=== PATIENT | female | born 1995 | race Caucasian/White ===

== ENCOUNTER → 2021-01-29 16:33 | Outpatient (CLI) | payer BC, SELFPAY ==
[2021-01-29 17:24] LABS: Absolute Lymphocyte Count 2.39 X10^3/uL (0.83-4.51); Absolute Neutrophil Count 5.1 X10^3/uL (2.0-7.7); Basophil# 0.06 X10^3/uL; Basophil% 0.7 % (0-1); Eosinophil# 0.16 X10^3/uL; Eosinophils% 1.9 % (0-5); Hemoglobin 13.5 g/dL (12.0-15.0); Lymphocyte # 2.39 X10^3/ul (0.83-4.51); Mean Corp Hgb Conc 35.5 g/dL (32-36); Mean Corpuscular Volume 84.4 fL (81-99); Mean Platelet Vol. 10.5 fl (6.2-12.0); Monocyte# 0.53 X10^3/uL; Monocyte% 6.4 % (0-10); NRBC Flagged by Analyzer 0 % (0-5); Neutrophil # 5.09 X10^3/uL (2.7-7.7); Neutrophil % 61.8 % (47-70); Platelet Count 253 K/mm3 (150-450); RBC Distribution Width CV 11.9 % (11.6-14.6); RBC Distribution Width SD 36.2 fl (35.1-43.9); White Blood Count 8.3 K/mm3 (4.4-11.0)
[2021-01-30 10:19] LABS: HIV - WCH Non-Reactive (Nonreactive); Hepatitis B Surface Antigen Non-Reactive (Nonreactive); Hepatitis C Antibody Non-Reactive (Nonreactive); Rubella IgG Reactive (Nonreactive); Syphilis Antibodies Non-reactive
[2021-02-02 22:06] LABS: Chlamydia By Nucleic Acid AMP Negative (Negative)
[2021-02-03 11:53] LABS: Gonococcus By Nucleic Acid AMP Negative (Negative)
[2021-02-04 17:16] LABS: HPV Reflexed? NOT INDICATED
== END ==
PROVIDERS: Visit Provider Obstetrics & Gynecology
DX: Z34.81 Encounter for supervision of other normal pregnancy, first trimester (principal)
CPT/HCPCS: 36415; 85025; 86703; 86762; 86780; 86803; 87086; 87088; 87340; 87491; 87591; 88175; G0145

== ENCOUNTER 2021-06-09 15:46 | Outpatient (CLI) | payer BC, SELFPAY ==
[2021-06-09 17:37] LABS: Glucose Challenge Gest 1H 50g 165 mg/dL (70-140)
[2021-06-09 17:40] LABS: Hematocrit 33.2 % (37-47); Hemoglobin 11.5 g/dL (12.0-15.0); Mean Corp Hgb Conc 34.6 g/dL (32-36); Mean Corpuscular Hgb 30.2 pg (27.0-32.0); Mean Corpuscular Volume 87.1 fL (81-99); Mean Platelet Vol. 11.2 fl (6.2-12.0); Platelet Count 199 K/mm3 (150-450); RBC Distribution Width CV 12.1 % (11.6-14.6); RBC Distribution Width SD 38.6 fl (35.1-43.9); Red Blood Count 3.81 M/mm3 (4.2-5.4); White Blood Count 10.8 K/mm3 (4.4-11.0)
== END 2021-06-09 23:59 | disposition home or self-care (01) ==
LOC: WOBLAB 15:51
PROVIDERS: Visit Provider Obstetrics & Gynecology
DX: Z34.82 Encounter for supervision of other normal pregnancy, second trimester (principal)
CPT/HCPCS: 36415; 82950; 85027

== ENCOUNTER 2021-06-15 09:08 | Outpatient (CLI) | payer BC, SELFPAY ==
[2021-06-15 10:28] LABS: Glucose GTT-Gestation. Fasting 81 mg/dL (<105)
[2021-06-15 13:05] LABS: Glucose GTT-Gestational 2 Hr 151 mg/dL (<165)
[2021-06-15 13:06] LABS: Glucose GTT-Gestational 1 Hr 165 mg/dL (<190)
[2021-06-15 13:06] LABS: Glucose GTT-Gestational 3 Hr 134 L (<145)
== END 2021-06-15 23:59 | disposition home or self-care (01) ==
PROVIDERS: Visit Provider Obstetrics & Gynecology
DX: Z34.82 Encounter for supervision of other normal pregnancy, second trimester (principal)
CPT/HCPCS: 36415; 82951; 82952

== ENCOUNTER → 2021-08-11 | Outpatient (CLI) | payer BC, SELFPAY | END | disposition home or self-care (01) | LOC: LABSPEC 17:17 | PROVIDERS: Visit Provider Obstetrics & Gynecology | DX: Z34.83 Encounter for supervision of other normal pregnancy, third trimester (principal) | CPT/HCPCS: 87086; 87088 ==

== ENCOUNTER → 2021-08-25 | Outpatient (CLI) | payer BC, SELFPAY | END | disposition home or self-care (01) | LOC: LABSPEC 16:13 | PROVIDERS: Visit Provider Obstetrics & Gynecology | DX: Z36.85 Encounter for antenatal screening for Streptococcus B (principal) | CPT/HCPCS: 87077; 87081; 87186 ==

== ENCOUNTER 2021-08-27 20:35 | Outpatient (CLI) | payer BC, SELFPAY ==
[2021-08-27] VITALS (11 sets, daily range): BP systolic 120–130; BP diastolic 80–85; PULSE 98–130; TEMP 36.2–36.9; O2SAT 97–99; BMI 34.6
--- NOTE | 2021-08-27 17:53 | OB.TRI.NOTE ---
HPI - General HPI Narrative JOEL ELIAS, is a 25 F who presents with decreased movement PFSH PFSH Home Medications vit-iron fum-folic ac [Prena-Tab] 1 tab PO DAILY 08/27/21 [History Last Taken 08/27/21 10:00] Allergy/AdvReac Type Severity Reaction Status Date / Time amoxicillin Allergy Other Verified 08/27/21 14:44 Penicillins [PCN] Allergy Other Verified 08/27/21 14:44 NST FHR Rate Baby A Baseline: 140 Variability:: Moderate Accelerations:: 15 x 15 Decelerations:: None NST Reactive:: Yes Uterine Activity:: Few contractions Assessment & Plan (1) : PLAN: Patient arrived with decreased movement, reactive NST and now feeling movement. All reassuring. Patient with some cramping cervical exam unchanged from office visit, reassuring. Encourage p.o. hydration. Okay to discharge home and follow-up at scheduled appointments
--- NOTE | 2021-08-27 22:46 | OB.TRI.NOTE ---
HPI - General HPI Narrative JOEL ELIAS, is a 25 F who presents with cramping PFSH PFSH Home Medications vit-iron fum-folic ac [Prena-Tab] 1 tab PO DAILY 08/27/21 [History Last Taken 08/27/21 10:00] Allergy/AdvReac Type Severity Reaction Status Date / Time amoxicillin Allergy Other Verified 08/27/21 20:58 Penicillins [PCN] Allergy Other Verified 08/27/21 20:58 NST FHR Rate Baby A Baseline: 140 Variability:: Moderate Accelerations:: 15 x 15 Decelerations:: None NST Reactive:: Yes Uterine Activity:: Every 5 to 8 minutes Assessment & Plan (1) : PLAN: Patient arrived with contractions. Cervical exam unchanged from office exam. Repeat cervical exam unchanged. All reassuring. No signs of labor. Okay to discharge home and follow-up at scheduled appointments
== END 2021-08-27 23:27 | disposition home or self-care (01) ==
LOC: WP 20:44 → WPOUT 20:44
PROVIDERS: Visit Provider Obstetrics & Gynecology
DX: O36.8190 Decreased fetal movements, unspecified trimester, not applicable or unspecified (principal); Z3A.00 Weeks of gestation of pregnancy not specified
CPT/HCPCS: 59025; 59050; 99218; G0378

== ENCOUNTER 2021-09-01 21:30 | Outpatient (CLI) | payer BC, SELFPAY ==
[2021-09-01 21:47] VITALS: BP 119/87; PULSE 80; TEMP 36.7; O2SAT 99
[2021-09-01 21:58] VITALS: BMI 34.4
--- NOTE | 2021-09-01 22:15 | US_ITS ---
EXAM: US ABDOMEN LIMITED, RIGHT UPPER QUADRANT CLINICAL INDICATION: RUQ tenderness at 37 weeks gestation -- eval gallbladder, liver disease, TECHNIQUE: Real-time ultrasound of the right upper quadrant with image documentation. This report was created using DXY report generation technology. COMPARISON: None. FINDINGS: LIVER: Liver is normal in size and echogenicity measuring 15 cm. No intrahepatic biliary ductal dilation. GALLBLADDER: Moderately distended gallbladder. Sludge and shadowing stones in the gallbladder. Land Surve[employer] Survey Worker reports a positive sonographic Coleman''s sign. No gallbladder wall thickening is demonstrated. No pericholecystic fluid. COMMON BILE DUCT: Unremarkable as visualized. The proximal common bile duct is within normal limits for the patient''s age. PANCREAS: Limited due to bowel gas. No visualized abnormality. RIGHT KIDNEY: Right kidney is normal in size and echogenicity measuring 11.5 x 4 x 4.6 cm. Renal cortical thickness is normal. No mass, stone, or hydronephrosis. Limited due to bowel gas. US/Gallbladder IMPRESSION: Cholelithiasis with positive sonographic Coleman''s sign, suspicious for acute cholecystitis. Electronically Signed: Kalina Doran MD at 23:39 EDT Reading Location ID and State: [id number] / Tel , Service support ,
--- NOTE | 2021-09-01 22:18 | OB.TRI.NOTE ---
HPI - General HPI Narrative JOEL ELIAS, is a 25 F who presents at 37 3/7 weeks gestation with c/o right upper abdominal pain and contractions. Abdominal pain started suddenly at 6pm. She took a Tylenol 975mg at 6:45pm with no improvement of pain. Pain radiates through belly to back and was worsened with the car ride. She reports similar episode of pain that brought her to the hospital last week. The pain resolved an hour after taking Tylenol. Her contractions are approximately q2 minutes but she reports this is mild compared to her abdominal pain. + FM, no leaking of fluid or vaginal bleeding. PFSH [facility] Medical History (Updated 09/01/21 @ 22:[address] Susu Ortiz MD) Patient denies medical problems Home Medications vit-iron fum-folic ac [Prena-Tab] 1 tab PO DAILY 08/27/21 [History Last Taken 09/01/21] Allergy/AdvReac Type Severity Reaction Status Date / Time amoxicillin Allergy Other Verified 09/01/21 22:01 Penicillins [PCN] Allergy Other Verified 09/01/21 22:01 Surgical History (Updated 09/01/21 @ 22:[address] Susu Ortiz MD) No history of previous surgery Social History (Updated 09/01/21 @ 22:[address] Susu Ortiz MD) Smoking Status: Never smoker alcohol intake: never substance use type: does not use History 1 Elective abortions Hx Para Spontaneous abortions Hx # Term Pregnancies Ectopic pregnancies Hx # Pregnancies Multiple births # of living children ROS Constitutional Constitutional: Denies chills, fever(s) or headache(s) Eyes Eyes: Denies change in vision Gastrointestinal Gastrointestinal: Reports nausea and vomiting Physical Exam Const alert, oriented x3 and no apparent distress General Appearance: cooperative and comfortable HEENT normocephalic Resp Auscultation: clear to auscultation bilaterally Cardio regular rate, regular rhythm, S1 normal heart sound and S2 normal heart sound GI soft to palpation GI Narrative: +RUQ tenderness Inspection: gravid Narrative: no fundal tenderness, no suprapubic tenderness SVE 04/19/-3 per RN cervix check Bladder / Kidney Exam: no CVA tenderness and CVA tenderness Extremity no calf tenderness Extremity Narrative: +1 b/l LE edema Neuro moves all extremities and deep tendon reflexes 2+ bilaterally Neuro Narrative: no clonus Sensorium / Orientation: awake, alert, oriented to person, oriented to place and oriented to time NST FHR Rate Baby A Baseline: 130 Variability:: Moderate Accelerations:: 15 x 15 Decelerations:: None NST Reactive:: Yes FHR Category:: Category I Uterine Activity:: 3-07/28 Assessment & Plan (1) Right upper quadrant abdominal tenderness: PLAN: Dfdx hepatobiliary disease, appendicitis, less likely kidney stones CBC with diff, CMP U/A NPO Gallbladder US ordered, will consider CT pending lab findings. (2) 37 weeks gestation of :
[2021-09-01 22:46] LABS: Absolute Lymphocyte Count 1.62 X10^3/uL (0.83-4.51); Absolute Neutrophil Count 9.2 X10^3/uL (2.0-7.7); Basophil# 0.04 X10^3/uL; Basophil% 0.3 % (0-1); Eosinophil# 0.03 X10^3/uL; Eosinophils% 0.3 % (0-5); Hematocrit 34.5 % (37-47); Hemoglobin 11.1 g/dL (12.0-15.0); Lymphocyte # 1.62 X10^3/ul (0.83-4.51); Lymphocyte % 13.6 % (19-41); Mean Corp Hgb Conc 32.2 g/dL (32-36); Mean Corpuscular Hgb 25.9 pg (27.0-32.0); Mean Corpuscular Volume 80.6 fL (81-99); Mean Platelet Vol. 12.6 fl (6.2-12.0); Monocyte# 1.04 X10^3/uL; Monocyte% 8.7 % (0-10); NRBC Flagged by Analyzer 0 % (0-5); Neutrophil # 9.17 X10^3/uL (2.7-7.7); Neutrophil % 76.7 % (47-70); Platelet Count 176 K/mm3 (150-450); RBC Distribution Width CV 13.9 % (11.6-14.6); RBC Distribution Width SD 39.9 fl (35.1-43.9); Red Blood Count 4.28 M/mm3 (4.2-5.4)
[2021-09-01 22:59] LABS: Color, Urine Yellow (Yellow); Glucose, Dipstick Normal (Normal); Ketone-Dipstick 50 mg/dl (Negative); Leukocyte Esterase-Dipstick 500 /ul (Negative); Nitrite-Dipstick Negative (Negative); Occult Blood-Urine 10 /ul (Negative); Protein-Dipstick 100 mg/dl (Negative); Specific Gravity, Urine 1.025 (1.002-1.030); Urine Clarity Sl. Cloudy (Clear); Urine Urobilinogen 4 mg/dl (Normal)
[2021-09-01 23:00] LABS: Urine Bilirubin Dipstick 1 mg/dL (Negative)
[2021-09-01 23:06] LABS: ALB/GLOB Ratio 0.7 RATIO (0.9-2.4); AST(SGOT) 94 U/L (15-37); Alanine Aminotransfer ALT/SGPT 96 U/L (13-56); Albumin, Serum 3.2 g/dL (3.2-5.0); Alkaline Phosphatase 202 U/L (45-117); Amylase 68 U/L (25-115); Anion Gap 9 (5-15); BUN 12 mg/dL (7-18); BUN/Creat Ratio 14.7 RATIO (10-20); Calcium,Total 9.5 mg/dL (8.5-10.1); Chloride 106 mmol/L (98-107); Creatinine, Serum 0.82 mg/dL (0.55-1.02); EST Glomerular Filtration Rate 92 mL/min (>60); Est Glom Filt Rate - Afr Amer 111 mL/min (>60); Estimated Creatinine Clearance 130.21 ml/min; Globulin 4.5 g/dL (2.2-4.2); Glucose 92 mg/dL (74-106); Lipase 145 U/L (73-393); Potassium 4.1 mmol/L (3.5-5.1); Protein, Total 7.7 g/dL (6.4-8.2); Sodium Level 138 mmol/L (136-145)
[2021-09-01 23:18] LABS: Bacteria 3+ /hpf (None Seen); Mucous, Urine 3+ /hpf (<or=2+); Red Blood Cells-Urine 5-10 SEEN /hpf (0-5); Squamous Epithelial Cells - UA 10-25 SEEN /hpf (5-10); White Blood Cells 25-50 SEEN /hpf (0-5)
[2021-09-02] MEDS: Lactated Ringers 500 ML 999 ML IV (00:07)
--- NOTE | 2021-09-02 00:37 | PCM.PN.BLA ---
Progress Note Pt reports upper abdominal pain improved now 07/28 from 10/28 and has more pelvic pain due to her contractions and reports wetness. She is uncertain if her water broke. AVSS, +RUQ tenderness not as exquisite as prior. SVE 04/19/-3, moderate and posterior. FHR 140, moderate variability, + accelerations, no decelerations. Labs reviewed with elevated AST/ALT and US with biliary stones, sludge. Surgery consultation obtained. Case discussed further with Dr. Ward. Given cannot rule out cholecystitis will start Keflex/Flagyl and observe overnight. Pain management prn. Cat I FHR. ROM plus.
[2021-09-02] MEDS: Lactated Ringers 1,000 ML 125 ML IV ×2 (00:41→04:45)
[2021-09-02 00:53] VITALS: BP 113/77; PULSE 101; PULSE 92; TEMP 36.7; O2SAT 97
[2021-09-02] MEDS: Famotidine 200 MG/20 ML MDV 20 MG in 0.9% Normal Saline (Pres. free 8 ML 300 MG IV (01:03)
[2021-09-02] MEDS: 0.9% Saline Lock 10 ML Syringe IV (01:03)
[2021-09-02] MEDS: Cephalexin 500 MG Capsule PO ×2 (01:04→06:35)
[2021-09-02] MEDS: metroNIDAZOLE 500 MG/100 ML BAG 100 MG IV ×2 (01:12→06:35)
[2021-09-02 01:26] LABS: ROM Internal Control Test YES-OK TO RESULT pt. (Internal QC); ROM Patient Test Negative (Negative)
[2021-09-02 06:37] VITALS: BP 127/75; PULSE 67; TEMP 36.6
--- NOTE | 2021-09-02 07:20 | CON.PCM.SX_ITS ---
Assessment & Plan Assessment/Plan (1) 37 weeks gestation of : (2) Right upper quadrant abdominal tenderness: (3) Cholelithiasis: PLAN: Plan We will plan to recheck CBC and CMP. If increased would plan for an MRI to take a better look at the gallbladder. Did review ultrasound gallbladder?stones are mostly in the fundus of the gallbladder and normal gallbladder wall no pericholecystic fluid and with no elevation of bilirubin unsure that this elevated liver function is due to the gallbladder. Patient states her pain is currently improved. Patient is currently 37 weeks not plan for delgado rgical intervention at this time, if needed would plan for cholecystostomy tube. Patient had no further questions this time. Addendum: CBC shows a drop in hemoglobin as well as drop in platelets. Did discuss with Dr. Susu Ortiz if hellp syndrome could be a consideration for the etiology. Currently liver functions pending Niki Ward M.D. Pager: [phone] [facility] [address] [place] [address], [facility], [address] [place] [address] Office: [phone] HPI Consult Data Date of Consult: 09/02/21 HPI Narrative HPI Narrative: JOEL ELIAS, is a 25 F who presents to OB triage due to upper abdominal pain. Patient states that started about 6 PM patient did eat at 5 PM. Patient states she has had previous episodes but those did improve. Ultrasound was done which showed gallstones normal wall no pericholecystic fluid?tech called positive Coleman sign. Patient is currently 37 weeks gestation, white blood cell count 12, elevated AST ALT and alk phos normal total bilirubin. Consulted by BRYOLOGIST due to possible cholecystitis. Patient was started prophylactically on Keflex and Flagyl. Currently this morning patient states her pain is improved previously about an 8 she came in currently 4?5/10 (prior to getting pain meds). Patient did have some nausea and vomiting with this. [facility] Medical History (Updated 09/02/21 @ 07:[address] Niki Ward MD) Patient denies medical problems Home Medications vitamins-iron fumarate 65 mg iron-folic acid 1 mg tablet 1 tab PO DAILY prengnacy 08/27/21 [History Last Taken 09/01/21] Allergy/AdvReac Type Severity Reaction Status Date / Time amoxicillin Allergy Other Verified 09/01/21 22:01 Penicillins [PCN] Allergy Other Verified 09/01/21 22:01 Surgical History (Updated 09/01/21 @ 22:[address] Susu Ortiz MD) No history of previous surgery Social History (Updated 09/01/21 @ 22:[address] Susu Ortiz MD) Smoking Status: Never smoker alcohol intake: never substance use type: does not use ROS Constitutional Constitutional: Denies anorexia or chills ENT HEENT: Denies dizziness Cardiovascular Cardiovascular: Denies chest pain Respiratory/Chest Respiratory/Chest: Denies shortness of breath at rest Gastrointestinal Gastrointestinal: Reports abdominal pain and nausea; Denies diarrhea, heartburn, hematemesis or melena Genitourinary Genitourinary: Denies burning urination Musculoskeletal Musculoskeletal: Denies joint pain Integumentary Integumentary: Denies rash Neurologic Neurologic: Denies abnormal gait or focal weakness Endocrine Endocrinology: Denies palpitations Hematologic/Lymphatic Hematologic/Lymphatic: Denies easy bleeding or easy bruising Physical Exam Const alert, oriented x3 and no apparent distress HEENT normocephalic and head/scalp atraumatic Resp normal respiratory effort Cardio regular rate GI non-distended Palpation: tender RUQ (mild, no PS) and other (Protuberant abdomen consistent with 37 weeks gestation); Negative for guarding Extremity no clubbing, cyanosis or edema Neuro CN's II-XII intact bilaterally Psych mental status grossly normal Lab / Micro Data Result Diagrams: 09/02/21 08:20 09/01/21 22:30 Labs: Laboratory Results - last 24 hr 09/01/21 22:25: Urine Color Yellow, Urine Clarity Sl. Cloudy, Urine pH 6.0, Ur Specific [place] 1.025, Urine Protein 100 H, Urine Glucose (UA) Normal, Urine Ketones 50 H, Urine Occult Blood 10 H, Urine Nitrite Negative, Urine Bilirubin 1 H, Urine Urobilinogen 4 H, Ur Leukocyte Esterase 500 H, Urine RBC 5-10 SEEN, Urine WBC 25-50 SEEN, Ur Squamous Epith Cells 10-25 SEEN, Urine Bacteria 3+, Urine Mucus 3+ 09/01/21 22:30: WBC 12.0 H, RBC 4.28, Hgb 11.1 L, Hct 34.5 L, MCV 80.6 L, MCH 25.9 L, MCHC 32.2, RDW Std Deviation 39.9, RDW Coeff of Leila 13.9, Plt Count 176, MPV 12.6 H, Immature Gran % (Auto) 0.400, Neut % (Auto) 76.7 H, Lymph % (Auto) 13.6 L, [place] % (Auto) 8.7, Eos % (Auto) 0.3, Baso % (Auto) 0.3, Absolute Neuts (auto) 9.2 H, Absolute Lymphs (auto) 1.62, Nucleated RBC % 0 09/01/21 22:30: Sodium 138, Potassium 4.1, Chloride 106, Carbon Dioxide 23.0, Anion Gap 9, BUN 12, Creatinine 0.82, Estim Creat Clear Calc 130.21, Est GFR (MDRD) Af Amer 111, Est GFR (MDRD) Non-Af 92, BUN/Creatinine Ratio 14.7, Glucose 92, Calcium 9.5, Total Bilirubin 1.00, AST 94 H, ALT 96 H, Alkaline Phosphatase 202 H, Total Protein 7.7, Albumin 3.2, Globulin 4.5 H, Albumin/Globulin Ratio 0.7 L, Amylase 68, Lipase 145 09/01/21 22:30: Blood Type O POSITIVE, Antibody Screen NEGATIVE 09/02/21 00:55: Vag Amniotic Fld Detect Negative Radiology Impression Gallbladder Ultrasound 09/01/21 22:15 IMPRESSION: Cholelithiasis with positive sonographic Coleman''s sign, suspicious for acute cholecystitis. Electronically Signed: Kalina Doran MD at 23:39 EDT Reading Location ID and State: [id number] / Tel , Service support , Charges/Coding Visit Charges Inpatient E&M: 76456 Init Hosp L3
--- NOTE | 2021-09-02 07:32 | OB.TRI.PN ---
Progress Notes Date of Service: 09/02/21 Progress Note: Denies fever, chills. Pain is mild to moderate and manageable this morning. No nausea or vomiting. + FM, no leaking of fluid or vaginal bleeding. AVSS, exam unchanged from prior. Laboratory Studies: Laboratory Tests 09/02/21 09/01/21 09/01/21 Range/Units 00:55 22:30 22:30 WBC (4.4-11.0) K/mm3 RBC (4.2-5.4) M/mm3 Hgb (12.0-15.0) g/dL Hct (37-47) % MCV (81-99) fL MCH (27.0-32.0) pg MCHC (32-36) g/dL RDW Std Deviation (35.1-43.9) fl RDW Coeff of Leila (11.6-14.6) % Plt Count (150-450) K/mm3 MPV (6.2-12.0) fl Immature Gran % (Auto) (0.0-0.9) % Neut % (Auto) (47-70) % Lymph % (Auto) (19-41) % [place] % (Auto) (0-10) % Eos % (Auto) (0-5) % Baso % (Auto) (0-1) % Absolute Neuts (auto) (2.0-7.7) X10^3/uL Absolute Lymphs (auto) (0.83-4.51) X10^3/uL Nucleated RBC % (0-5) % Sodium 138 (136-145) mmol/L Potassium 4.1 (3.5-5.1) mmol/L Chloride 106 (98-107) mmol/L Carbon Dioxide 23.0 (21.0-32.0) mmol/L Anion Gap 9 (5-15) BUN 12 (7-18) mg/dL Creatinine 0.82 (0.55-1.02) mg/dL Estim Creat Clear Calc 130.21 ml/min Est GFR (MDRD) Af Amer 111 (>60) mL/min Est GFR (MDRD) Non-Af 92 (>60) mL/min BUN/Creatinine Ratio 14.7 (10-20) RATIO Glucose 92 (74-106) mg/dL Calcium 9.5 (8.5-10.1) mg/dL Total Bilirubin 1.00 (0.20-1.00) mg/dL AST 94 H (15-37) U/L ALT 96 H (13-56) U/L Alkaline Phosphatase 202 H (45-117) U/L Total Protein 7.7 (6.4-8.2) g/dL Albumin 3.2 (3.2-5.0) g/dL Globulin 4.5 H (2.2-4.2) g/dL Albumin/Globulin Ratio 0.7 L (0.9-2.4) RATIO Amylase 68 (25-115) U/L Lipase 145 (73-393) U/L Urine Color (Yellow) Urine Clarity (Clear) Urine pH (5.0 - 8.0) Ur Specific [place] (1.002-1.030) Urine Protein (Negative) mg/dl Urine Glucose (UA) (Normal) mg/dl Urine Ketones (Negative) mg/dl Urine Occult Blood (Negative) /ul Urine Nitrite (Negative) Urine Bilirubin (Negative) mg/dL Urine Urobilinogen (Normal) mg/dl Ur Leukocyte Esterase (Negative) /ul Urine RBC (0-5) /hpf Urine WBC (0-5) /hpf Ur Squamous Epith Cells (5-10) /hpf Urine Bacteria (None Seen) /hpf Urine Mucus (<or=2+) /hpf Vag Amniotic Fld Detect Negative (Negative) Blood Type O POSITIVE Antibody Screen NEGATIVE 09/01/21 09/01/21 Range/Units 22:30 22:25 WBC 12.0 H (4.4-11.0) K/mm3 RBC 4.28 (4.2-5.4) M/mm3 Hgb 11.1 L (12.0-15.0) g/dL Hct 34.5 L (37-47) % MCV 80.6 L (81-99) fL MCH 25.9 L (27.0-32.0) pg MCHC 32.2 (32-36) g/dL RDW Std Deviation 39.9 (35.1-43.9) fl RDW Coeff of Leila 13.9 (11.6-14.6) % Plt Count 176 (150-450) K/mm3 MPV 12.6 H (6.2-12.0) fl Immature Gran % (Auto) 0.400 (0.0-0.9) % Neut % (Auto) 76.7 H (47-70) % Lymph % (Auto) 13.6 L (19-41) % [place] % (Auto) 8.7 (0-10) % Eos % (Auto) 0.3 (0-5) % Baso % (Auto) 0.3 (0-1) % Absolute Neuts (auto) 9.2 H (2.0-7.7) X10^3/uL Absolute Lymphs (auto) 1.62 (0.83-4.51) X10^3/uL Nucleated RBC % 0 (0-5) % Sodium (136-145) mmol/L Potassium (3.5-5.1) mmol/L Chloride (98-107) mmol/L Carbon Dioxide (21.0-32.0) mmol/L Anion Gap (5-15) BUN (7-18) mg/dL Creatinine (0.55-1.02) mg/dL Estim Creat Clear Calc ml/min Est GFR (MDRD) Af Amer (>60) mL/min Est GFR (MDRD) Non-Af (>60) mL/min BUN/Creatinine Ratio (10-20) RATIO Glucose (74-106) mg/dL Calcium (8.5-10.1) mg/dL Total Bilirubin (0.20-1.00) mg/dL AST (15-37) U/L ALT (13-56) U/L Alkaline Phosphatase (45-117) U/L Total Protein (6.4-8.2) g/dL Albumin (3.2-5.0) g/dL Globulin (2.2-4.2) g/dL Albumin/Globulin Ratio (0.9-2.4) RATIO Amylase (25-115) U/L Lipase (73-393) U/L Urine Color Yellow (Yellow) Urine Clarity Sl. Cloudy (Clear) Urine pH 6.0 (5.0 - 8.0) Ur Specific [place] 1.025 (1.002-1.030) Urine Protein 100 H (Negative) mg/dl Urine Glucose (UA) Normal (Normal) mg/dl Urine Ketones 50 H (Negative) mg/dl Urine Occult Blood 10 H (Negative) /ul Urine Nitrite Negative (Negative) Urine Bilirubin 1 H (Negative) mg/dL Urine Urobilinogen 4 H (Normal) mg/dl Ur Leukocyte Esterase 500 H (Negative) /ul Urine RBC 5-10 SEEN (0-5) /hpf Urine WBC 25-50 SEEN (0-5) /hpf Ur Squamous Epith Cells 10-25 SEEN (5-10) /hpf Urine Bacteria 3+ (None Seen) /hpf Urine Mucus 3+ (<or=2+) /hpf Vag Amniotic Fld Detect (Negative) Blood Type Antibody Screen Assessment & Plan (1) Cholelithiasis: PLAN: Surgery recs appreciated. Will follow up repeat LFTs to further determine management.
[2021-09-02 08:00] VITALS: BP 123/82; PULSE 90; TEMP 36.5; O2SAT 97
[2021-09-02 08:27] LABS: Absolute Lymphocyte Count 1.68 X10^3/uL (0.83-4.51); Absolute Neutrophil Count 5.5 X10^3/uL (2.0-7.7); Basophil# 0.04 X10^3/uL; Basophil% 0.5 % (0-1); Eosinophil# 0.05 X10^3/uL; Eosinophils% 0.6 % (0-5); Hemoglobin 9.6 g/dL (12.0-15.0); Lymphocyte # 1.68 X10^3/ul (0.83-4.51); Lymphocyte % 21.3 % (19-41); Mean Corpuscular Hgb 25.8 pg (27.0-32.0); Mean Corpuscular Volume 80.6 fL (81-99); Mean Platelet Vol. 12.4 fl (6.2-12.0); Monocyte# 0.62 X10^3/uL; Monocyte% 7.9 % (0-10); NRBC Flagged by Analyzer 0 % (0-5); Neutrophil # 5.47 X10^3/uL (2.7-7.7); Neutrophil % 69.3 % (47-70); Platelet Count 143 K/mm3 (150-450); RBC Distribution Width SD 40.1 fl (35.1-43.9); Red Blood Count 3.72 M/mm3 (4.2-5.4); White Blood Count 7.9 K/mm3 (4.4-11.0)
[2021-09-02 09:25] LABS: ALB/GLOB Ratio 0.7 RATIO (0.9-2.4); AST(SGOT) 69 U/L (15-37); Alanine Aminotransfer ALT/SGPT 92 U/L (13-56); Albumin, Serum 2.6 g/dL (3.2-5.0); Alkaline Phosphatase 178 U/L (45-117); Anion Gap 8 (5-15); BUN 11 mg/dL (7-18); BUN/Creat Ratio 16.7 RATIO (10-20); Calcium,Total 8.9 mg/dL (8.5-10.1); Chloride 109 mmol/L (98-107); Creatinine, Serum 0.66 mg/dL (0.55-1.02); EST Glomerular Filtration Rate 118 mL/min (>60); Est Glom Filt Rate - Afr Amer 142 mL/min (>60); Estimated Creatinine Clearance 161.77 ml/min; Globulin 3.8 g/dL (2.2-4.2); Glucose 85 mg/dL (74-106); Potassium 3.8 mmol/L (3.5-5.1); Protein, Total 6.4 g/dL (6.4-8.2); Sodium Level 139 mmol/L (136-145)
[2021-09-02 10:07] LABS: LDH 220 U/L (84-246); Uric Acid 5.1 mg/dL (2.6-6.0)
[2021-09-02 13:42] VITALS: BP 118/84; PULSE 85; TEMP 36.5
== END 2021-09-02 14:25 | disposition home or self-care (01) ==
LOC: WPOUT 21:40 → WP 21:40
PROVIDERS: Surgery; Referring Provider Obstetrics & Gynecology; Visit Provider Obstetrics & Gynecology
DX: O26.613 Liver and biliary tract disorders in pregnancy, third trimester (principal); K80.20 Calculus of gallbladder without cholecystitis without obstruction; Z3A.37 37 weeks gestation of pregnancy
CPT/HCPCS: 96365; 96366; 96361; 96375; 36415; 59025; 59050; 76705; 80053; 81001; 82150; 83615; 83690; 84112; 84550; 85025; 86850; 86900; 86901; 87086; 87088; 99218; J7120; A4216; G0378; J3490

== ENCOUNTER → 2021-09-04 | Outpatient (CLI) | payer BC, SELFPAY ==
[2021-09-04 16:56] LABS: Hematocrit 31.5 % (37-47); Hemoglobin 10.1 g/dL (12.0-15.0); Mean Corp Hgb Conc 32.1 g/dL (32-36); Mean Corpuscular Hgb 25.8 pg (27.0-32.0); Mean Corpuscular Volume 80.4 fL (81-99); Mean Platelet Vol. 12.6 fl (6.2-12.0); Platelet Count 173 K/mm3 (150-450); RBC Distribution Width CV 14.1 % (11.6-14.6); RBC Distribution Width SD 40.6 fl (35.1-43.9); Red Blood Count 3.92 M/mm3 (4.2-5.4); White Blood Count 7.7 K/mm3 (4.4-11.0)
[2021-09-04 17:48] LABS: ALB/GLOB Ratio 0.8 RATIO (0.9-2.4); AST(SGOT) 22 U/L (15-37); Alanine Aminotransfer ALT/SGPT 53 U/L (13-56); Albumin, Serum 2.8 g/dL (3.2-5.0); Alkaline Phosphatase 181 U/L (45-117); Anion Gap 8 (5-15); BUN 9 mg/dL (7-18); BUN/Creat Ratio 12.1 RATIO (10-20); Calcium,Total 9.2 mg/dL (8.5-10.1); Chloride 109 mmol/L (98-107); Creatinine, Serum 0.74 mg/dL (0.55-1.02); EST Glomerular Filtration Rate 102 mL/min (>60); Est Glom Filt Rate - Afr Amer 124 mL/min (>60); Globulin 3.7 g/dL (2.2-4.2); Glucose 104 mg/dL (74-106); LDH 191 U/L (84-246); Potassium 3.6 mmol/L (3.5-5.1); Protein, Total 6.5 g/dL (6.4-8.2); Sodium Level 137 mmol/L (136-145)
== END | disposition home or self-care (01) ==
LOC: WOBLAB 16:15
PROVIDERS: Visit Provider Obstetrics & Gynecology
DX: D69.6 Thrombocytopenia, unspecified (principal)
CPT/HCPCS: 36415; 80053; 83615; 85027

== ENCOUNTER 2021-09-06 02:25 | Outpatient (CLI) | payer BC, SELFPAY ==
[2021-09-06 02:45] VITALS: BMI 34.6
[2021-09-06 02:50] VITALS: BP 128/83; PULSE 77; O2SAT 98
[2021-09-06 02:51] VITALS: TEMP 36.5; O2SAT 100
[2021-09-06] MEDS: Lactated Ringers 1,000 ML 999 ML IV (03:25)
[2021-09-06] MEDS: Ondansetron 4 MG/2 ML Vial IV (03:38)
[2021-09-06 03:42] LABS: Color, Urine Yellow (Yellow); Glucose, Dipstick Normal (Normal); Ketone-Dipstick 15 mg/dl (Negative); Leukocyte Esterase-Dipstick 500 /ul (Negative); Nitrite-Dipstick Negative (Negative); Occult Blood-Urine Negative /ul (Negative); Protein-Dipstick 30 mg/dl (Negative); Urine Bilirubin Dipstick Negative (Negative); Urine Clarity Clear (Clear); Urine Urobilinogen 1 mg/dl (Normal)
[2021-09-06] MEDS: Famotidine 20 MG Tablet PO (04:20)
[2021-09-06 05:05] VITALS: BP 125/86; PULSE 65; TEMP 36.5; O2SAT 98
--- NOTE | 2021-09-06 08:26 | OB.TRI.NOTE ---
HPI - General General Date of Admission: 09/06/21 Date of Service: 09/06/21 HPI Narrative JOEL ELIAS, is a 25 F who presents with nausea PFSH PFSH Medical History (Updated 09/02/21 @ 07:[address] Niki Ward MD) Patient denies medical problems Home Medications vitamins-iron fumarate 65 mg iron-folic acid 1 mg tablet 1 tab PO DAILY prengnacy 08/27/21 [History Last Taken 09/05/21 08:00] Allergy/AdvReac Type Severity Reaction Status Date / Time amoxicillin Allergy Other Verified 09/06/21 02:46 Penicillins [PCN] Allergy Other Verified 09/06/21 02:46 Surgical History (Updated 09/01/21 @ 22:[address] Susu Ortiz MD) No history of previous surgery Social History (Updated 09/01/21 @ 22:[address] Susu Ortiz MD) Smoking Status: Never smoker alcohol intake: never substance use type: does not use History 1 Elective abortions Hx Para Spontaneous abortions Hx # Term Pregnancies Ectopic pregnancies Hx # Pregnancies Multiple births # of living children NST FHR Rate Baby A Baseline: 120 Variability:: Moderate Accelerations:: 15 x 15 NST Reactive:: Yes Uterine Activity:: q3 min Assessment & Plan (1) : PLAN: Patient arrives with nausea and vomiting at home. Previously diagnosed with cholelithiasis. Patient given Zofran and IV fluids. Improved, okay to discharge home
== END 2021-09-06 05:20 | disposition home or self-care (01) ==
LOC: WPOUT 02:28 → WP 02:30
PROVIDERS: Visit Provider Obstetrics & Gynecology
DX: O21.9 Vomiting of pregnancy, unspecified (principal); Z3A.00 Weeks of gestation of pregnancy not specified
CPT/HCPCS: 96365; 96361; 59025; 59050; 81002; 99218; J7120; G0378; J2405

== ENCOUNTER 2021-09-15 08:40 | Inpatient (IN) | payer BC, SELFPAY ==
[2021-09-15] VITALS (26 sets, daily range): BP systolic 119–159; BP diastolic 73–105; PULSE 8–130; TEMP 36.2–37.3; O2SAT 82–100; BMI 33.9
[2021-09-15 10:20] LABS: Absolute Lymphocyte Count 1.73 X10^3/uL (0.83-4.51); Absolute Neutrophil Count 3.8 X10^3/uL (2.0-7.7); Basophil# 0.05 X10^3/uL; Basophil% 0.8 % (0-1); Eosinophil# 0.07 X10^3/uL; Eosinophils% 1.1 % (0-5); Hematocrit 31.4 % (37-47); Hemoglobin 10.2 g/dL (12.0-15.0); Lymphocyte # 1.73 X10^3/ul (0.83-4.51); Lymphocyte % 27.7 % (19-41); Mean Corp Hgb Conc 32.5 g/dL (32-36); Mean Corpuscular Hgb 25.8 pg (27.0-32.0); Mean Corpuscular Volume 79.3 fL (81-99); Mean Platelet Vol. 12.5 fl (6.2-12.0); Monocyte# 0.54 X10^3/uL; Monocyte% 8.7 % (0-10); NRBC Flagged by Analyzer 0 % (0-5); Neutrophil # 3.82 X10^3/uL (2.7-7.7); Neutrophil % 61.2 % (47-70); Platelet Count 173 K/mm3 (150-450); RBC Distribution Width SD 43.2 fl (35.1-43.9); Red Blood Count 3.96 M/mm3 (4.2-5.4); White Blood Count 6.2 K/mm3 (4.4-11.0)
[2021-09-15] MEDS: miSOPROStol 25 MCG TABLET VAGINAL (10:20)
[2021-09-15] MEDS: Lactated Ringers 1,000 ML 50 ML IV (11:14)
--- NOTE | 2021-09-15 12:47 | PCM.HP.OB ---
HPI - General General Date of Admission: 09/15/21 Date of Service: 09/15/21 Chief Complaint: scheduled induction HPI Narrative JOEL ELIAS, is a 25 F who presents at 39 3/7 weeks gestation by LMP 12/13/20 - JUSTIN 09/19/21 c/w first trimester US. Maternal Data Information Final JUSTIN Source: LMP PFSH PFSH Medical History (Updated 09/15/21 @ 21:[address] Susu Ortiz MD) Cholelithiasis Home Medications vitamins-iron fumarate 65 mg iron-folic acid 1 mg tablet 1 tab PO DAILY prengnacy 08/27/21 [History Last Taken 09/14/21] Pepcid AC 20 mg PO/SL DAILY PRN Heartburn 09/15/21 [History Last Taken Unknown] Allergy/AdvReac Type Severity Reaction Status Date / Time amoxicillin Allergy Other Verified 09/06/21 02:46 Penicillins [PCN] Allergy Other Verified 09/06/21 02:46 Family History no significant family his no significant family history Surgical History No history of previous surgery Surgical History no surgical history no surgical history Social History Smoking Status: Never smoker alcohol intake: never substance use type: does not use History 1 Elective abortions Hx Para 0 Spontaneous abortions Hx # Term Pregnancies Ectopic pregnancies Hx # Pregnancies Multiple births # of living children NST FHR Rate Baby A Baseline: 150 Variability:: Moderate Decelerations:: Late NST Reactive:: Non-Reactive FHR Category:: Category II Uterine Activity:: 5-6/10 Vital Signs Vital Signs Vital Signs: 09/15/21 08:47 09/15/21 08:47 09/15/21 08:47 Pulse Rate 112 H 115 H Blood Pressure 132/92 H BP Systolic 132 BP Diastolic 92 Pulse Ox 09/15/21 08:47 09/15/21 08:52 09/15/21 08:52 Pulse Rate 114 H Blood Pressure BP Systolic BP Diastolic Pulse Ox 96 100 09/15/21 08:56 09/15/21 08:56 09/15/21 08:57 Pulse Rate 94 93 Blood Pressure 130/93 H BP Systolic 130 BP Diastolic 93 Pulse Ox 09/15/21 08:57 09/15/21 09:02 09/15/21 09:02 Pulse Rate 106 H Blood Pressure BP Systolic BP Diastolic Pulse Ox 99 99 09/15/21 09:07 09/15/21 09:07 09/15/21 11:12 Pulse Rate 98 Blood Pressure 119/73 BP Systolic 119 BP Diastolic 73 Pulse Ox 99 09/15/21 11:12 Pulse Rate 78 Blood Pressure BP Systolic BP Diastolic Pulse Ox Weight Weight: 76.204 kg Body Mass Index (BMI) 33.9 Physical Exam Const alert, oriented x3 and no apparent distress HEENT normocephalic Resp normal respiratory effort, normal air movement and clear to auscultation bilaterally Cardio regular rate and regular rhythm GI normal to inspection, nondistended, normoactive bowel sounds, soft to palpation, non-tender and non-distended Inspection: gravid Labs Labs Labs: Blood Type O POSITIVE Antibody Screen NEGATIVE Hct 31.4 % (37-47) L Hgb 10.2 g/dL (12.0-15.0) L Assessment & Plan (1) 39 weeks gestation of : PLAN: Fluid bolus for Cat II FHR Post cytotec x 1 Will continue to monitor closely
[2021-09-15] MEDS: LACTATED RINGERS 500 ML 999 ML IV ×2 (14:50→21:34)
[2021-09-15] MEDS: Lactated Ringers 1,000 ML 100 ML IV (16:45)
[2021-09-15] MEDS: 0.9% Normal Saline Single 100 ML IV.SOLN. INTRA-UTER (18:20)
--- NOTE | 2021-09-15 18:41 | PN.OBGYN_ITS ---
Subjective Subjective Reports cramping. Objective Data Objective Data Vital Signs: Vital Signs Temp Pulse BP Pulse Ox 97.2 F L 60 135/85 H 100 09/15/21 16:04 09/15/21 16:39 09/15/21 16:39 09/15/21 16:02 Weight: 76.204 kg Body Mass Index (BMI) 33.9 Intake & Output: Intake and Output for Last 24 Hours 09/13/21 09/14/21 09/15/21 23:59 23:59 23:59 Intake Total 1750.00 / 1750.00 Output Total 200 / 200 Balance 1550.00 / 1550.00 Lab / Micro Data Result Diagrams: 09/15/21 10:05 Labs: Laboratory Results - last 24 hr 09/15/21 10:05: WBC 6.2, RBC 3.96 L, Hgb 10.2 L, Hct 31.4 L, MCV 79.3 L, MCH 25.8 L, MCHC 32.5, RDW Std Deviation 43.2, RDW Coeff of Leila 15.0 H, Plt Count 173, MPV 12.5 H, Immature Gran % (Auto) 0.500, Neut % (Auto) 61.2, Lymph % (Auto) 27.7, [place] % (Auto) 8.7, Eos % (Auto) 1.1, Baso % (Auto) 0.8, Absolute Ne uts (auto) 3.8, Absolute Lymphs (auto) 1.73, Nucleated RBC % 0 09/15/21 10:05: Blood Type O POSITIVE, Antibody Screen NEGATIVE Micro: Microbiology 09/15/21 10:05 Nasal Secretion SARS-CoV-2 Antigen (Rapid) - Final Physical Exam Narrative GEN - NAD, AAO x 3 FHR 130, moderate variability, + accelerations, no decelerations SVE 1.5/25/-3, moderate and midposition TOCO no contractions traced, pt reports q1-2 minutes Assessment & Plan (1) 39 weeks gestation of : PLAN: Post cytotec x 1 Suazo bulb placed with prolonged deceleration occurring immediately after placement and return to moderate variability Continuous monitoring Readjust toco
[2021-09-15] MEDS: DiphenhydrAMINE 50 MG/ML Syringe 25 MG IV (21:58)
--- NOTE | 2021-09-15 22:16 | PCM.PN.OB ---
Subjective Subjective Reports cramping frequently. Objective Data Objective Data Vital Signs: Vital Signs Temp Pulse BP Pulse Ox 99.2 F H 111 H 128/86 H 98 09/15/21 21:37 09/15/21 21:41 09/15/21 21:27 09/15/21 21:41 Weight: 76.204 kg Body Mass Index (BMI) 33.9 Intake & Output: Intake and Output for Last 24 Hours 09/13/21 09/14/21 09/15/21 23:59 23:59 23:59 Intake Total 3080.00 / 3080.00 Output Total 200 / 200 Balance 2880.00 / 2880.00 Lab / Micro Data Result Diagrams: 09/15/21 10:05 Labs: Laboratory Results - last 24 hr 09/15/21 10:05: WBC 6.2, RBC 3.96 L, Hgb 10.2 L, Hct 31.4 L, MCV 79.3 L, MCH 25.8 L, MCHC 32.5, RDW Std Deviation 43.2, RDW Coeff of Leila 15.0 H, Plt Count 173, MPV 12.5 H, Immature Gran % (Auto) 0.500, Neut % (Auto) 61.2, Lymph % (Auto) 27.7, [place] % (Auto) 8.7, Eos % (Auto) 1.1, Baso % (Auto) 0.8, Absolute Neuts (auto) 3.8, Absolute Lymphs (auto) 1.73, Nucleated RBC % 0 09/15/21 10:05: Blood Type O POSITIVE, Antibody Screen NEGATIVE Micro: Microbiology 09/15/21 10:05 Nasal Secretion SARS-CoV-2 Antigen (Rapid) - Final Physical Exam Narrative GEN - breathing through contractions FHR - 145, moderate variability, + accelerations then had prolonged deceleration. TOCO 5/10 min SVE 4.5/60/-3 Assessment & Plan (1) 39 weeks gestation of : PLAN: Decelerations resolve with repositioning, fluid bolus Discussed with patient cervical change in light of Cat I-II FHR. Discussed observe further without additional augmentation versus section. Patient aware that recommendation for emergent section however may occur at any time and comfortable with immediate delivery at that time as indicated. Following discussion, will plan for observation at this time. Monitor FHT closely for recovery from recent deceleration and return to moderate variability.
[2021-09-16] VITALS (49 sets, daily range): BP systolic 89–184; BP diastolic 59–104; PULSE 30–229; RESP 16–20; TEMP 36.3–37.9; O2SAT 80–100
[2021-09-16] MEDS: fentaNYL-bupivacaine (epidural) 100 ML BAG EPIDURAL (00:15)
--- NOTE | 2021-09-16 00:47 | PCM.PN.OB ---
Objective Data Objective Data Comfortable with epidural. Vital Signs: Vital Signs Temp Pulse BP Pulse Ox 98.3 F 73 137/90 H 100 09/16/21 00:25 09/16/21 00:40 09/16/21 00:40 09/16/21 00:37 Weight: 76.204 kg Body Mass Index (BMI) 33.9 Intake & Output: Intake and Output for Last 24 Hours 09/14/21 09/15/21 09/16/21 23:59 23:59 23:59 Intake Total 3151.67 / 3151.67 Output Total 200 / 200 Balance 2951.67 / 2951.67 Lab / Micro Data Result Diagrams: 09/15/21 10:05 Labs: Laboratory Results - last 24 hr 09/15/21 10:05: WBC 6.2, RBC 3.96 L, Hgb 10.2 L, Hct 31.4 L, MCV 79.3 L, MCH 25.8 L, MCHC 32.5, RDW Std Deviation 43.2, RDW Coeff of Leila 15.0 H, Plt Count 173, MPV 12.5 H, Immature Gran % (Auto) 0.500, Neut % (Auto) 61.2, Lymph % (Auto) 27.7, [place] % (Auto) 8.7, Eos % (Auto) 1.1, Baso % (Auto) 0.8, Absolute Neuts (auto) 3.8, Absolute Lymphs (auto) 1.73, Nucleated RBC % 0 09/15/21 10:05: Blood Type O POSITIVE, Antibody Screen NEGATIVE Micro: Microbiology 09/15/21 10:05 Nasal Secretion SARS-CoV-2 Antigen (Rapid) - Final Physical Exam Narrative GEN - NAD, AAO x 3 FHR - 130, moderate, + accelerations, no deceleration SVE 4.5/60/-3 TOCO 4/10 min Assessment & Plan (1) 39 weeks gestation of : PLAN: Regression of cervical exam post spontaneous rupture of membranes Plan pitocin if FHR remains Cat I
[2021-09-16] MEDS: Lactated Ringers 1,000 ML 200 ML IV (02:38)
[2021-09-16] MEDS: Ondansetron 4 MG/2 ML Vial IV (02:42)
--- NOTE | 2021-09-16 04:35 | PCM.PN.OB ---
Subjective Subjective No complaints. Denies painfulness with epidural. Reports feeling pressure. Objective Data Objective Data GEN - NAD, AAO x 3 [id number], minimal variability, with prolonged deceleration, variable deceleration SVE 4.5/60/-3 TOCO 2-3/10 min, irregular Vital Signs: Vital Signs Temp Pulse BP Pulse Ox 98.5 F 91 105/61 80 09/16/21 03:32 09/16/21 03:32 09/16/21 03:32 09/16/21 01:18 Weight: 76.204 kg Body Mass Index (BMI) 33.9 Intake & Output: Intake and Output for Last 24 Hours 09/14/21 09/15/21 09/16/21 23:59 23:59 23:59 Intake Total 3151.67 / 3151.67 628.33 / 628.33 Output Total 200 / 200 Balance 2951.67 / 2951.67 628.33 / 628.33 Lab / Micro Data Result Diagrams: 09/15/21 10:05 Labs: Laboratory Results - last 24 hr 09/15/21 10:05: WBC 6.2, RBC 3.96 L, Hgb 10.2 L, Hct 31.4 L, MCV 79.3 L, MCH 25.8 L, MCHC 32.5, RDW Std Deviation 43.2, RDW Coeff of Leila 15.0 H, Plt Count 173, MPV 12.5 H, Immature Gran % (Auto) 0.500, Neut % (Auto) 61.2, Lymph % (Auto) 27.7, [place] % (Auto) 8.7, Eos % (Auto) 1.1, Baso % (Auto) 0.8, Absolute Neuts (auto) 3.8, Absolute Lymphs (auto) 1.73, Nucleated RBC % 0 09/15/21 10:05: Blood Type O POSITIVE, Antibody Screen NEGATIVE Micro: Microbiology 09/15/21 10:05 Nasal Secretion SARS-CoV-2 Antigen (Rapid) - Final Assessment & Plan (1) 39 weeks gestation of : PLAN: SVE unchanged with Cat II FHR Unable to start pitocin given frequent Cat II FHR and prolonged decelerations twice an hour Advised delivery with review of indications. At this time, unable to augment contraction given FHR tracing and current contraction pattern inadequate. No progression in > 6 hours and back to back prolonged decelerations occurred following my exam. Procedural risks, benefits, alternatives reviewed. Discussed potential long-term risks including risks for future , anticipated hospital course and recovery. Patient desires to proceed with section. She and given opportunity to ask questions and questions answered to their satisfaction.
[2021-09-16] MEDS: DiphenhydrAMINE 50 MG/ML Syringe 25 MG IV (04:45)
[2021-09-16] MEDS: Sodium Citrate/Citric Acid 30 ML UDC PO (05:12)
[2021-09-16] MEDS: Clindamycin 900 MG/50 ML BAG 75 MG IV (05:35)
[2021-09-16] MEDS: Methylergonovine 0.2 MG/ML Ampul IM (05:54)
--- NOTE | 2021-09-16 06:46 | OP.PCM_ITS ---
Assessment & Plan (1) 39 weeks gestation of : (2) delivery delivered: Details Operative Information Date of Procedure: 09/16/21 Pre-Operative Diagnosis: 1. 39 4/7 weeks gestation 2. Category II heart rate tracing 3. Failure to progress Post-Operative Diagnosis: 1. 39 4/7 weeks gestation 2. Category II heart rate tracing 3. Failure to progress Indications for : Failure to Progress Indications Narrative: 25-year-old 1 para 0 presents for scheduled induction of labor at 39+ weeks gestational age with history of cholelithiasis this . She had a single Cytotec and continue to contract on her own with category 1 to category 2 heart rate tracing heart rate tracing. A Suazo bulb was placed with progression to 4-1/2 cm dilation. She spontaneously ruptured however due to intermittent category 2 heart rate tracing with periodic prolonged decelerations and late decelerations she was on a candidate for Pitocin augmentation. She contracted on her own for more than 6 hours with no cervical change however the heart rate tracing became persistently category 2 with recurrent late and variable decelerations. I advised her to proceed with section. Procedural risks, benefits, indications and alternatives were reviewed and patient agreeable to proceed. Classification: CHANDLER Procedure Type: low transverse motor equipment sergeant #1: Estee Alex Type of Anesthesia: Epidural Anesthesiologist: Pina Glover Antibiotic Given: Clindamycin 600mg IV x1 and Gentamicin 1.5mg/kg IV x1 Drain: Suazo to straight drain Estimated Blood Loss: 800 ml Fluids Replaced: 1500 ml Findings Description of Procedure: The patient was taken to the operating room and epidural analgesia was up dosed. She is placed in a dorsal supine position. The perineum and abdomen were prepped and draped in sterile fashion. The epidural was found to be adequate . A Pfannenstiel incision was made using a scalpel and brought down to incise the subcutaneous tissue and rectus fascia at the midline. Subcutaneous tissue was bluntly dissected off the fascia laterally. The fascial incision was dissected laterally and cephalad using curved Wright scissors. The superior leaflet of the rectus fascia was grasped using Carole clamps and bluntly dissected and sharply dissected from the underlying rectus muscle. In a similar fashion the inferior rectus fascia was dissected from the underlying muscle. The rectus muscles were bluntly at the midline. The peritoneum was identified and entered [sharply]. The bladder blade was placed into the abdomen and the vesicouterine peritoneal fold identified. The fold was incised and a bladder flap created. Bladder blade was then repositioned to the abdomen. A low transverse hysterotomy was made using the [Metzenbaum scissors] to level of the membranes. The hysterotomy was extended bluntly cephalad and caudad. The membranes were then ruptured revealing clear fluid. The head was elevated and brought to the level of the hysterotomy and the delivered revealing a [male] infant. The cord was doubly clamped and cut after 30 seconds. The was passed to awaiting [nursery personnel]. The placenta was [expressed] from the uterus and appeared intact on inspection. The uterus was cleared of debris. The hysterotomy was then repaired using 0 Vicryl running lock suture. A second imbricating layer was also placed for additional hemostasis as well as a single figure of eight 0 Vicryl. There was small capillary bleeding from the myometrium dissected from the vesicouterine peritoneum controlled with monopolar electrocoagulation and [place] was placed. The bladder blade was removed. The anterior cul-de-sac was cleared of debris. The peritoneum was reapproximated with 2-0 Vicryl running suture. The rectus fascia was closed using 0 Stratafix running suture. Small capillary bleeding controlled using the Bovie. The subcutaneous tissue was reapproximated using 2-0 Vicryl. The skin was closed using 4-0 Monocryl subcuticularly by the TECHNICAL DESIGNER under my supervision. A Mepilex occlusive dressing was placed over the incision. The fundus was firm. The patient was then transferred to the recovery room without complication. Sponge, instrument, and needle counts were correct ?2. Presentation: Positive for Vertex Time of Membrane Ruptured: 222409/15/21 Amniotic Fluid Description: Clear Placental Delivery Description: Spontaneous Placenta Disposition: [facility] Cord Vessel Description: 3 Vessels Cord Entanglement: None Cord Gases: ABG and VBG A Gender: Male (1 minute): 6 (5 minute): 8 Delayed Cord Clamping: No Complications Risks of Surgery Discussed w/Patient: Bleeding, Anesthesia Risks, Infection, Need for Future C-Sections, Permanency, Failure Rate of 1 to 2%, Injury to surrounding structure(s) including bowel and bladder, Availability of other non- permanent control options and -
[2021-09-16] MEDS: Oxytocin 30 units/NS 500 ml 30 UNITS/500 ML IV.SOLN 167 UNITS IV (06:58)
[2021-09-16] MEDS: Ketorolac 30 MG/ML Syringe IV ×2 (08:13→15:24)
[2021-09-16] MEDS: Acetaminophen 500 MG Tablet 1000 MG PO ×3 (08:13→22:16)
[2021-09-16] MEDS: Lactated Ringers 1,000 ML 100 ML IV ×2 (10:28→22:16)
--- NOTE | 2021-09-16 12:30 | NURSING ---
epidural catheter removed. blue tip intact.
[2021-09-16 12:52] LABS: Hematocrit 27.5 % (37-47); Hemoglobin 8.6 g/dL (12.0-15.0); Mean Corp Hgb Conc 31.3 g/dL (32-36); Mean Corpuscular Hgb 25.5 pg (27.0-32.0); Mean Corpuscular Volume 81.6 fL (81-99); Mean Platelet Vol. 12.9 fl (6.2-12.0); Platelet Count 136 K/mm3 (150-450); RBC Distribution Width CV 15.1 % (11.6-14.6); RBC Distribution Width SD 44.3 fl (35.1-43.9); Red Blood Count 3.37 M/mm3 (4.2-5.4); White Blood Count 11.9 K/mm3 (4.4-11.0)
[2021-09-16] MEDS: LACTATED RINGERS 500 ML 999 ML IV (22:30)
[2021-09-17 00:52] VITALS: BP 103/62; PULSE 87; RESP 18; TEMP 36.3
[2021-09-17 03:04] VITALS: BP 109/69; PULSE 90; RESP 18
[2021-09-17] MEDS: Acetaminophen 500 MG Tablet 1000 MG PO ×4 (03:06→21:41)
[2021-09-17] MEDS: Ketorolac 30 MG/ML Syringe IV (03:07)
[2021-09-17 05:01] LABS: Hematocrit 22.5 % (37-47); Mean Corp Hgb Conc 31.1 g/dL (32-36); Mean Corpuscular Hgb 25.2 pg (27.0-32.0); Mean Corpuscular Volume 80.9 fL (81-99); Mean Platelet Vol. 11.8 fl (6.2-12.0); Platelet Count 137 K/mm3 (150-450); RBC Distribution Width CV 15.4 % (11.6-14.6); RBC Distribution Width SD 45.1 fl (35.1-43.9); Red Blood Count 2.78 M/mm3 (4.2-5.4)
[2021-09-17 08:13] VITALS: BP 94/73; PULSE 94; RESP 16; TEMP 36.4; O2SAT 97
--- NOTE | 2021-09-17 08:24 | PCM.PN.OB ---
Subjective Subjective Patient without complaints. Tolerating diet well. Positive flatus. Denies any orthostatic symptoms when walking in [place]. Minimal vaginal bleeding reported. Objective Data Objective Data Wound is clean, dry, intact covered with Mepilex dressing. Abdomen is soft and nontender. Good urine output now. Hemoglobin 7.0 noted. Vital Signs: Vital Signs Temp Pulse Resp BP Pulse Ox O2 Del Method 97.5 F L 94 16 94/73 97 Room Air 09/17/21 08:13 09/17/21 08:13 09/17/21 08:13 09/17/21 08:13 09/17/21 08:13 09/17/21 08:13 Oxygen Delivery Method Room Air Weight: 168 lb Body Mass Index (BMI) 33.9 Intake & Output: Intake and Output for Last 24 Hours 09/15/21 09/16/21 09/17/21 23:59 23:59 23:59 Intake Total 3151.67 / 3151.67 3063.33 / 3063.33 Output Total 200 / 200 750 / 750 1700 / 1700 Balance 2951.67 / 2951.67 2313.33 / 2313.33 -1700 / -1700 Lab / Micro Data Result Diagrams: 09/17/21 04:45 Labs: Laboratory Results - last 24 hr 09/15/21 10:25: Crossmatch See Detail 09/16/21 12:25: WBC 11.9 H, RBC 3.37 L, Hgb 8.6 L, Hct 27.5 L, MCV 81.6, MCH 25.5 L, MCHC 31.3 L, RDW Std Deviation 44.3 H, RDW Coeff of Leila 15.1 H, Plt Count 136 L, MPV 12.9 H 09/17/21 04:45: WBC 10.0, RBC 2.78 L, Hgb 7.0 L, Hct 22.5 L, MCV 80.9 L, MCH 25.2 L, MCHC 31.1 L, RDW Std Deviation 45.1 H, RDW Coeff of Leila 15.4 H, Plt Count 137 L, MPV 11.8 Micro: Microbiology 09/15/21 10:05 Nasal Secretion SARS-CoV-2 Antigen (Rapid) - Final Assessment & Plan (1) delivery delivered: PLAN: Doing well postoperative day #1 status post section. Blood loss anemia from surgery with minimal symptoms. Will monitor expectantly and encourage iron use at home during the next 4 to 6 weeks. Repeat CBC tomorrow. Continuing present care and will normalize otherwise.
[2021-09-17] MEDS: Prenatal Vits Tablet 1 TABLET PO (08:57)
[2021-09-17] MEDS: Senna/Docusate Sodium 1 Tablet PO (08:57)
[2021-09-17] MEDS: Ibuprofen 600 MG Tablet PO ×3 (09:20→21:41)
[2021-09-17 14:27] VITALS: BP 103/62; PULSE 103; RESP 16; TEMP 36.1; O2SAT 99
[2021-09-17 20:00] VITALS: BP 126/91; PULSE 98; RESP 18; TEMP 36.2; O2SAT 98
[2021-09-17] MEDS: 0.9% Saline Lock 10 ML Syringe IV (21:42)
[2021-09-17 23:15] VITALS: BP 128/76; PULSE 87; RESP 18; TEMP 36.7; O2SAT 99
[2021-09-18] MEDS: Acetaminophen 500 MG Tablet 1000 MG PO ×4 (03:56→22:15)
[2021-09-18] MEDS: Ibuprofen 600 MG Tablet PO ×4 (03:56→22:14)
[2021-09-18 04:45] VITALS: BP 135/84; PULSE 82; RESP 16; TEMP 36.4; O2SAT 96
[2021-09-18 06:39] LABS: Absolute Lymphocyte Count 2.33 X10^3/uL (0.83-4.51); Absolute Neutrophil Count 7.4 X10^3/uL (2.0-7.7); Basophil# 0.04 X10^3/uL; Basophil% 0.4 % (0-1); Eosinophil# 0.09 X10^3/uL; Eosinophils% 0.8 % (0-5); Hematocrit 22.5 % (37-47); Hemoglobin 7.1 g/dL (12.0-15.0); Lymphocyte # 2.33 X10^3/ul (0.83-4.51); Mean Corp Hgb Conc 31.6 g/dL (32-36); Mean Corpuscular Hgb 25.4 pg (27.0-32.0); Mean Corpuscular Volume 80.4 fL (81-99); Monocyte# 0.68 X10^3/uL; Monocyte% 6.4 % (0-10); NRBC Flagged by Analyzer 0 % (0-5); Neutrophil # 7.42 X10^3/uL (2.7-7.7); Neutrophil % 69.9 % (47-70); Platelet Count 169 K/mm3 (150-450); RBC Distribution Width CV 15.7 % (11.6-14.6); RBC Distribution Width SD 45.4 fl (35.1-43.9); White Blood Count 10.6 K/mm3 (4.4-11.0)
[2021-09-18 08:50] VITALS: BP 119/83; PULSE 105; RESP 16; TEMP 36.5; O2SAT 99
--- NOTE | 2021-09-18 08:50 | PCM.PN.OB ---
Subjective Subjective Pain is minimal. OOB, passing flatus, no bowel movement yet. Tolerates PO. Voiding without difficulty. Denies heavy lochia. Objective Data Objective Data Vital Signs: Vital Signs Temp Pulse Resp BP Pulse Ox O2 Del Method 97.5 F L 82 16 135/84 H 96 Room Air 09/18/21 04:45 09/18/21 04:45 09/18/21 04:45 09/18/21 04:45 09/18/21 04:45 09/18/21 04:45 Oxygen Delivery Method Room Air Weight: 76.204 kg Body Mass Index (BMI) 33.9 Intake & Output: Intake and Output for Last 24 Hours 09/16/21 09/17/21 09/18/21 23:59 23:59 23:59 Intake Total 3063.33 / 3063.33 2900 / 2900 Output Total 750 / 750 3200 / 3200 Balance 2313.33 / 2313.33 -300 / -300 Lab / Micro Data Result Diagrams: 09/18/21 06:27 Labs: Laboratory Results - last 24 hr 09/18/21 06:27: WBC 10.6, RBC 2.80 L, Hgb 7.1 L, Hct 22.5 L, MCV 80.4 L, MCH 25.4 L, MCHC 31.6 L, RDW Std Deviation 45.4 H, RDW Coeff of Leila 15.7 H, Plt Count 169, MPV 12.0, Immature Gran % (Auto) 0.500, Neut % (Auto) 69.9, Lymph % (Auto) 22.0, [place] % (Auto) 6.4, Eos % (Auto) 0.8, Baso % (Auto) 0.4, Absolute Neuts (auto) 7.4, Absolute Lymphs (auto) 2.33, Nucleated RBC % 0 Micro: Microbiology 09/15/21 10:05 Nasal Secretion SARS-CoV-2 Antigen (Rapid) - Final Physical Exam Const alert, oriented x3 and no apparent distress Resp normal respiratory effort, normal air movement and clear to auscultation bilaterally Cardio regular rate, regular rhythm, S1 normal heart sound and S2 normal heart sound GI normal to inspection, nondistended, normoactive bowel sounds, soft to palpation, non-tender and non-distended Manual OB Exam: other lochia scant Uterus Palpation: uterus fundus firm Extremity no calf tenderness Assessment & Plan (1) delivery delivered: PLAN: POD#2 Rh positive, HCV Ab neg, HBsAg neg, HIV nr, RPR nr, Rubella immune /pumping Plan for d/c home later today pending discharge
--- NOTE | 2021-09-18 08:54 | DCINST_ITS ---
Discharge Instructions Diet Discharge Diet: No restrictions Activity Discharge Activity: Return to Normal Activity and May Shower May resume sexual activity in: 4-6 weeks Lifting Restrictions: 10 lb Dressing / Incision Call your doctor if your incision/area has: Continuous Slow Oozing, Sudden Increased Bleeding, Increased Pain/ Swelling, Increased Redness and Swelling at the incision site Call your doctor if you observe: Fever of 101 or Higher, Inability to urinate, Using more than 1 pad per hour, Shortness of breath, Dizziness, Chest pain, Calf discomfort, Uncontrolled pain and - (Persistent or severe headache) Suture Line Care: Avoid Pulling/Pushing Remove Dressing in: 4 days Cleanse incision/area with: Soap & Water Follow Up Care Please Follow Up With: Chapito Roberson MD When: 2 weeks for incision check 6 weeks for visit Test Results: Test results from this visit will be discussed in further detail at your follow- up appointment, if applicable. Discharge Plan Admission Admit Date/Time: 09/15/21 08:40 Primary Reason for Your Visit: delivery Attending Provider: Susu Hay Primary Care Provider: Care PhysicianLorena Primary Discharge Orders/Prescriptions Prescriptions: New ibuprofen 600 mg Tablet 600 mg PO Q8H PRN PRN (Reason: pain) Qty: 30 0RF oxycodone 5 mg Tablet 5 mg PO Q6H PRN PRN (Reason: pain (scale score 7-10)) 7 Days Qty: 10 0RF ferrous sulfate 325 mg (65 mg iron) tablet 325 mg PO BID Qty: 60 0RF Continued vit-iron fum-folic ac 65 mg iron- 1 mg Tablet 1 tab PO DAILY Pepcid AC 20 mg PO/SL DAILY PRN (Reason: Heartburn) Referrals / Follow Up: Care Physician,No Primary [Primary Care Provider] - Disposition Disposition (needs filled in before D/C Order can be placed): Home, Self Care
--- NOTE | 2021-09-18 08:55 | DS.PCM_ITS ---
Providers Date of Admission: 09/15/21 Date of Discharge: 09/19/21 Primary Care Physician: No Primary Care Phys Reason For Visit: INDUCTION/CSECTION DELIVERY Diagnosis Discharge Diagnosis (1) delivery delivered: Status: Acute Code(s): O82 - Encounter for delivery without indication Plan: POD#3 Rh positive, HCV Ab neg, HBsAg neg, HIV nr, RPR nr, Rubella immune /pumping Plan for d/c home later today pending discharge (2) Postoperative anemia: Status: Acute Code(s): D64.9 - Anemia, unspecified Plan: Fe supplementation Medications at Discharge Home Medications vitamins-iron fumarate 65 mg iron-folic acid 1 mg tablet 1 tab PO DAILY prengnacy 08/27/21 Pepcid AC 20 mg PO/SL DAILY PRN Heartburn 09/15/21 ferrous sulfate 325 mg (65 mg iron) tablet 325 mg PO BID #60 tabs 09/18/21 ibuprofen 600 mg tablet 600 mg PO Q8H PRN PRN pain #30 tabs 09/18/21 oxycodone 5 mg tablet 5 mg PO Q6H PRN PRN pain (scale score 7-10) 7 days #10 tabs 09/18/21 Hospital Course Operations section Summary of Care Provided Hospital Course: 25yo G1 admitted at 39 3/7 weeks gestation for elective induction of labor for complicated by cholelithiasis. She received cytotec x 1. She continued to contract frequently with periodic decelerations. A dupree bulb was placed and she progressed to 4cm however heart decelerations became more frequent. She had a section on hospital day #2 for recurrent decelerations. Her Hgb decreased from 10.2 to 7.0. She had mildly elevated blood pressures postpart um however preeclamptic labs were normal and she was asymptomatic. She was discharged to home on post-op day #3. Weight / BMI Weight Weight: 76.204 kg Body Mass Index (BMI) 33.9 ABG / Lab / Microbiology Data Result Diagrams: 09/19/21 08:35 09/19/21 08:35 Laboratory: Laboratory Results - last 24 hr 09/18/21 06:27: WBC 10.6, RBC 2.80 L, Hgb 7.1 L, Hct 22.5 L, MCV 80.4 L, MCH 25.4 L, MCHC 31.6 L, RDW Std Deviation 45.4 H, RDW Coeff of Leila 15.7 H, Plt Count 169, MPV 12.0, Immature Gran % (Auto) 0.500, Neut % (Auto) 69.9, Lymph % (Auto) 22.0, [place] % (Auto) 6.4, Eos % (Auto) 0.8, Baso % (Auto) 0.4, Absolute Neuts (auto) 7.4, Absolute Lymphs (auto) 2.33, Nucleated RBC % 0 Microbiology: Microbiology 09/15/21 10:05 Nasal Secretion SARS-CoV-2 Antigen (Rapid) - Final D/C Instructions Discharge Diet: No restrictions May resume sexual activity in: 4-6 weeks Call your doctor if your incision/area has: Continuous Slow Oozing, Sudden In creased Bleeding, Increased Pain/ Swelling, Increased Redness and Swelling at the incision site Call your doctor if you observe: Fever of 101 or Higher, Inability to urinate, U sing more than 1 pad per hour, Shortness of breath, Dizziness, Chest pain, Calf discomfort, Uncontrolled pain and - (Persistent or severe headache) Suture Line Care: Avoid Pulling/Pushing Cleanse incision/area with: Soap & Water Please Follow Up With: Chapito Roberson MD When: 2 weeks for incision check 6 weeks for visit Meaningful Use Info Meaningful Use Diagnoses (Choose all that apply): None applicable Discharge Plan Admission Admit Date/Time: 09/15/21 08:40 Primary Reason for Your Visit: delivery Attending Provider: Susu Hay Primary Care Provider: Care Physician,Lorena Primary Instructions Patient Instructions: After a Discharge Orders/Prescriptions Prescriptions: New ibuprofen 600 mg Tablet 600 mg PO Q8H PRN PRN (Reason: pain) Qty: 30 0RF oxycodone 5 mg Tablet 5 mg PO Q6H PRN PRN (Reason: pain (scale score 7-10)) 7 Days Qty: 10 0RF ferrous sulfate 325 mg (65 mg iron) tablet 325 mg PO BID Qty: 60 0RF Continued vit-iron fum-folic ac 65 mg iron- 1 mg Tablet 1 tab PO DAILY Pepcid AC 20 mg PO/SL DAILY PRN (Reason: Heartburn) Referrals / Follow Up: Care Physician,No Primary [Primary Care Provider] - Disposition Disposition (needs filled in before D/C Order can be placed): Home, Self Care
[2021-09-18] MEDS: Senna/Docusate Sodium 1 Tablet PO (09:03)
[2021-09-18 14:59] VITALS: BP 123/88; PULSE 97; RESP 14; TEMP 36.6; O2SAT 98
[2021-09-18 20:04] VITALS: BP 134/88; PULSE 92; RESP 16; TEMP 37.4; O2SAT 98
[2021-09-19 01:53] VITALS: BP 149/79; PULSE 82; RESP 16; TEMP 36.4; O2SAT 100
[2021-09-19] MEDS: Ibuprofen 600 MG Tablet PO (04:15)
[2021-09-19] MEDS: Acetaminophen 500 MG Tablet 1000 MG PO (04:15)
[2021-09-19 07:47] VITALS: BP 131/93; PULSE 78; RESP 16; TEMP 36.3; O2SAT 98
--- NOTE | 2021-09-19 07:48 | PCM.PN.OB ---
Subjective Subjective Pain is controlled. Passing flatus. Tolerates PO. Denies heavy lochia. Nursing is going well. Denies headache, vision changes, shortness of breath. Looks forward to discharge to home today. Objective Data Objective Data Vital Signs: Vital Signs Temp Pulse Resp BP Pulse Ox O2 Del Method 97.5 F L 82 16 149/79 H 100 Room Air 09/19/21 01:53 09/19/21 01:53 09/19/21 01:53 09/19/21 01:53 09/19/21 01:53 09/19/21 01:53 Oxygen Delivery Method Room Air Weight: 76.204 kg Body Mass Index (BMI) 33.9 Intake & Output: Intake and Output for Last 24 Hours 09/17/21 09/18/21 09/19/21 23:59 23:59 23:59 Intake Total 2900 / 2900 Output Total 3200 / 3200 Balance -300 / -300 Lab / Micro Data Result Diagrams: 09/18/21 06:27 Labs: Laboratory Results - last 24 hr 09/15/21 10:25: Crossmatch See Detail Micro: Microbiology 09/15/21 10:05 Nasal Secretion SARS-CoV-2 Antigen (Rapid) - Final Physical Exam Const alert, oriented x3 and no apparent distress Resp normal respiratory effort, normal air movement and clear to auscultation bilaterally Cardio regular rate, regular rhythm, S1 normal heart sound and S2 normal heart sound GI normal to inspection, nondistended, normoactive bowel sounds, soft to palpation, non-tender and non-distended Manual OB Exam: other lochia scant Uterus Palpation: uterus fundus firm Extremity no calf tenderness Extremity Narrative: + b/l LE edema Neuro oriented x3 Assessment & Plan (1) Postoperative anemia: PLAN: Stable Fe supplementation (2) delivery delivered: PLAN: Routine postop care (3) Gestational hypertension without significant proteinuria, affecting puerperium: PLAN: Asx for preeclampsia Check preeclampsia labs this morning If normal will d/c home
[2021-09-19 08:55] LABS: Hematocrit 22.1 % (37-47); Hemoglobin 7.1 g/dL (12.0-15.0); Mean Corp Hgb Conc 32.1 g/dL (32-36); Mean Corpuscular Hgb 25.5 pg (27.0-32.0); Mean Corpuscular Volume 79.5 fL (81-99); Mean Platelet Vol. 11.1 fl (6.2-12.0); Platelet Count 218 K/mm3 (150-450); RBC Distribution Width CV 15.8 % (11.6-14.6); RBC Distribution Width SD 45.5 fl (35.1-43.9); Red Blood Count 2.78 M/mm3 (4.2-5.4); White Blood Count 6.6 K/mm3 (4.4-11.0)
[2021-09-19 09:09] LABS: ALB/GLOB Ratio 0.7 RATIO (0.9-2.4); AST(SGOT) 20 U/L (15-37); Alanine Aminotransfer ALT/SGPT 17 U/L (13-56); Albumin, Serum 2.5 g/dL (3.2-5.0); Alkaline Phosphatase 125 U/L (45-117); Anion Gap 9 (5-15); BUN 7 mg/dL (7-18); BUN/Creat Ratio 8.8 RATIO (10-20); Calcium,Total 8.8 mg/dL (8.5-10.1); Chloride 108 mmol/L (98-107); Creatinine, Serum 0.79 mg/dL (0.55-1.02); EST Glomerular Filtration Rate 95 mL/min (>60); Est Glom Filt Rate - Afr Amer 115 mL/min (>60); Estimated Creatinine Clearance 133.24 ml/min; Globulin 3.7 g/dL (2.2-4.2); Glucose 93 mg/dL (74-106); Potassium 3.7 mmol/L (3.5-5.1); Protein, Total 6.2 g/dL (6.4-8.2); Sodium Level 140 mmol/L (136-145); Uric Acid 4.2 mg/dL (2.6-6.0)
--- NOTE | 2021-09-19 10:18 | NURSING ---
Lab results called to Dr.Holmes Ortiz, she replied ok to discharge to home. Discharge instr reviewed and pt states she understands verbal and written instr.
--- NOTE | 2021-09-24 17:09 | NURSING ---
no answer on follow up phone call, left voicemail.
== END 2021-09-19 10:18 | disposition home or self-care (01) | DRG 787 ==
PROVIDERS: Obstetrics & Gynecology; Admitting Provider Obstetrics & Gynecology; Visit Provider Obstetrics & Gynecology
DX: O99.62 Diseases of the digestive system complicating childbirth (principal); D62 Acute posthemorrhagic anemia; K80.20 Calculus of gallbladder without cholecystitis without obstruction; O76 Abnormality in fetal heart rate and rhythm complicating labor and delivery; O90.81 Anemia of the puerperium; O13.5 Gestational [pregnancy-induced] hypertension without significant proteinuria, complicating the puerperium; Z37.0 Single live birth; Z3A.39 39 weeks gestation of pregnancy
CPT/HCPCS: 59025; 59050; 80053; 84550; 85025; 85027; 86850; 86900; 86901; 86920; 86922; 87426; 99218; 99251; J7040; J7120; A4216; G0378; G0463; J2405

== ENCOUNTER 2021-09-28 18:39 | Emergency (ER) | payer BC, SELFPAY ==
[2021-09-28 18:40] VITALS: BP 117/76; PULSE 92; RESP 16; TEMP 36.9; O2SAT 100; BMI 29.2
--- NOTE | 2021-09-28 20:10 | EDS_ITS ---
HPI HPI - GI History of Present Illness Chief Complaint: Abd Pain Narrative Narrative: 25-year-old female with epigastric pain rating to the right upper quadrant. She states that hurting worse today after eating [employer]. She states he is about 12 days and while she was in OB they thought maybe she was having delivery pains. She states that they discovered that she had cholelithiasis. I told her to stay away from fatty foods. The pain comes and goes. Is currently not present. PFSH PFSH Medical History Cholelithiasis Home Medications vitamins-iron fumarate 65 mg iron-folic acid 1 mg tablet 1 tab PO DAILY prengnacy 08/27/21 [History Last Taken 09/14/21] Pepcid AC 20 mg PO/SL DAILY PRN Heartburn 09/15/21 [History Last Taken Unknown] ferrous sulfate 325 mg (65 mg iron) tablet 325 mg PO BID #60 tabs 09/18/21 [Rx Last Taken Unknown] ibuprofen 600 mg tablet 600 mg PO Q8H PRN PRN pain #30 tabs 09/18/21 [Rx Last Taken Unknown] oxycodone 5 mg tablet 5 mg PO Q6H PRN PRN pain (scale score 7-10) 7 days #10 tabs 09/18/21 [Rx Last Taken Unknown] ondansetron 4 mg disintegrating tablet 4 mg PO Q8H PRN nausea and vomiting #10 tabs 09/28/21 [Rx Last Taken Unknown] ondansetron HCl 4 mg tablet 1 tab PO PRN PRN Nausea 09/28/21 [History Last Taken Unknown] oxycodone-acetaminophen 5 mg-325 mg tablet (Endocet) 1 tab PO Q6H PRN pain 3 days #12 tabs 09/28/21 [Rx Last Taken Unknown] Allergy/AdvReac Type Severity Reaction Status Date / Time amoxicillin Allergy Other Verified 09/06/21 02:46 Penicillins [PCN] Allergy Other Verified 09/06/21 02:46 Surgical History Delivery by section No history of previous surgery Social History Smoking Status: Never smoker alcohol intake: never substance use type: does not use ROS ROS ED Constitutional Constitutional ED: Denies chills or fever(s) ENT ENT ED: Denies rhinorrhea or sore throat Cardiovascular Cardiovascular: Denies chest pain or palpitations Respiratory/Chest Respiratory/Chest: Denies cough or dyspnea Gastrointestinal Gastrointestinal: Reports abdominal pain, nausea and vomiting Genitourinary Genitourinary ED: Denies dysuria or hematuria Musculoskeletal Musculoskeletal: Denies arthralgias Integumentary Denies abscess or Abrasions Neurologic Neurologic: Denies headache(s) or paresthesias Psychiatric Psychiatric: Denies anxiety or depression EXAM Physical Exam Const Vital Signs: 09/28/21 18:40 09/28/21 23:00 Temperature 98.4 F Temperature Source Temporal Pulse Rate 92 79 Respiratory Rate 16 15 Blood Pressure 117/76 128/85 H Blood Pressure Mean 89 99 Pulse Ox 100 98 Oxygen Delivery Method Room Air Room Air Positive well nourished General Appearance ED: NAD; Negative for pallor HEENT Reports TM's clear and moist mucous membranes normocephalic and atraumatic Tympanic Membrane ED: Yes TM's clear Eyes PERRL and EOMs intact bilaterally Resp normal respiratory effort and clear to auscultation bilaterally Effort and Inspection: Negative for respiratory distress Cardio regular rate and regular rhythm GI non-tender and non-distended Auscultation: normoactive bowel sounds Neuro CN's II-XII intact bilaterally Sensorium / Orientation: alert, oriented to person, oriented to place and oriented to time Psych mental status grossly normal Skin General Skin Exam: Negative for jaundice or pallor MDM MDM MDM Narrative Medical decision making narrative: Patient with right upper quadrant pain. This is resolved on my initial examination. I obtained blood work and she has a slight leukocytosis of 11.9. Renal function electrolytes are normal. AST 104, ALT 85, alkaline phosphatase 219. These are a little bit more elevated than previously but have been elevated in the past. Urinalysis negative for infection. I obtained a right upper quadrant ultrasound which does not show any gallbladder wall thickening or ductal dilation however she is noted to have a positive Coleman sign sonographically. The radiologist states there is concern for acute cholecystitis. I reevaluated the patient and she is again having pain. She does have a Coleman sign now. She states that generally when the pain is gone she does well. When the pain comes it is very severe and last for sometimes hours. She does feel better after Toradol and Zofran. Case was discussed with general surgery who will come evaluate the patient. After evaluation Dr. Zapata and the patient determined he would hold off on surgery currently. She does have healing surgical scars and there is concern because she recently had a 12 days ago. Patient was able to tolerate a p.o. challenge and feels okay. I did offer her some Percocet for home if she needs it for breakthrough pain however she does want to take this if she does not need to. She was given Zofran for home as well. She was counseled that if her pain gets worse or is persistent or she spikes a fever or any abnormal new symptoms she should return to the ER. She acknowledged understanding. Impression: 1. Cholelithiasis 2. Leukocytosis Lab Data Attestation: I reviewed the patient's lab results. Labs: Laboratory Results - last 24 hr 09/28/21 09/28/21 09/28/21 20:15 20:15 20:20 WBC 11.9 H RBC 4.17 L Hgb 10.5 L Hct 34.6 L MCV 83.0 MCH 25.2 L MCHC 30.3 L RDW Std Deviation 48.2 H RDW Coeff of Leila 16.5 H Plt Count 323 MPV 10.8 Immature Gran % (Auto) 0.600 Neut % (Auto) 80.3 H Lymph % (Auto) 13.4 L [place] % (Auto) 4.8 Eos % (Auto) 0.4 Baso % (Auto) 0.5 Absolute Neuts (auto) 9.6 H Absolute Lymphs (auto) 1.59 Nucleated RBC % 0 Sodium 140 Potassium 4.0 Chloride 104 Carbon Dioxide 26.0 Anion Gap 10 BUN 19 H Creatinine 0.91 Estim Creat Clear Calc 99.83 Est GFR (MDRD) Af Amer 98 Est GFR (MDRD) Non-Af 81 BUN/Creatinine Ratio 20.9 H Glucose 97 Calcium 9.6 Total Bilirubin 1.00 AST 104 H ALT 85 H Alkaline Phosphatase 219 H Total Protein 8.0 Albumin 3.8 Globulin 4.2 Albumin/Globulin Ratio 0.9 Lipase 160 Urine Color Yellow Urine Clarity Clear Urine pH 5.0 Ur Specific [place] 1.025 Urine Protein 30 H Urine Glucose (UA) Normal Urine Ketones 5 H Urine Occult Blood 250 H Urine Nitrite Negative Urine Bilirubin Negative Urine Urobilinogen Normal Ur Leukocyte Esterase 25 H Urine RBC 0-5 SEEN Urine WBC 0-5 SEEN Ur Squamous Epith Cells 0 SEEN Urine Bacteria RARE Urine Mucus RARE Radiography Diagnostic Testing: Clinical Impression(s) from Imaging Studies Gallbladder Ultrasound 09/28/21 20:57 IMPRESSION: Cholelithiasis with positive Coleman''s sign suspicious for acute cholecystitis. HIDA scan would be helpful for further evaluation if clinically warranted Bile duct within upper limits of normal size without definitive evidence for intraductal stone Electronically Signed: Mk Hall MD at 21:52 EDT , Discharge Plan Triage Chief Complaint: Abd Pain ED Provider: Eric Torres Dx/Rx/DC Orders Instructions: ED Gallstones with Biliary Colic Prescriptions: New oxycodone-acetaminophen [Endocet] 5-325 mg tablet 1 tab PO Q6H PRN (Reason: pain) 3 Days Qty: 12 0RF ondansetron 4 mg tablet,disintegrating 4 mg PO Q8H PRN (Reason: nausea and vomiting) Qty: 10 0RF No Action vit-iron fum-folic ac 65 mg iron- 1 mg Tablet 1 tab PO DAILY Pepcid AC 20 mg PO/SL DAILY PRN (Reason: Heartburn) ibuprofen 600 mg Tablet 600 mg PO Q8H PRN PRN (Reason: pain) Qty: 30 0RF oxycodone 5 mg Tablet 5 mg PO Q6H PRN PRN (Reason: pain (scale score 7-10)) 7 Days Qty: 10 0RF ferrous sulfate 325 mg (65 mg iron) tablet 325 mg PO BID Qty: 60 0RF ondansetron HCl 4 mg tablet 1 tab PO PRN PRN (Reason: Nausea) Primary Care Provider: Care Physician,No Primary Referrals: Hans Zapata MD [STAFF PHYSICIAN] - As Needed Care Physician,No Primary [Primary Care Provider] - Disposition Disposition: Home, Self Care Discharge Date/Time: 09/28/21 23:26
[2021-09-28 20:25] LABS: Absolute Lymphocyte Count 1.59 X10^3/uL (0.83-4.51); Absolute Neutrophil Count 9.6 X10^3/uL (2.0-7.7); Basophil# 0.06 X10^3/uL; Basophil% 0.5 % (0-1); Eosinophil# 0.05 X10^3/uL; Eosinophils% 0.4 % (0-5); Hematocrit 34.6 % (37-47); Hemoglobin 10.5 g/dL (12.0-15.0); Lymphocyte # 1.59 X10^3/ul (0.83-4.51); Lymphocyte % 13.4 % (19-41); Mean Corp Hgb Conc 30.3 g/dL (32-36); Mean Corpuscular Hgb 25.2 pg (27.0-32.0); Mean Platelet Vol. 10.8 fl (6.2-12.0); Monocyte# 0.57 X10^3/uL; Monocyte% 4.8 % (0-10); NRBC Flagged by Analyzer 0 % (0-5); Neutrophil # 9.56 X10^3/uL (2.7-7.7); Neutrophil % 80.3 % (47-70); Platelet Count 323 K/mm3 (150-450); RBC Distribution Width CV 16.5 % (11.6-14.6); RBC Distribution Width SD 48.2 fl (35.1-43.9); Red Blood Count 4.17 M/mm3 (4.2-5.4); White Blood Count 11.9 K/mm3 (4.4-11.0)
[2021-09-28 20:27] LABS: Squamous Epithelial Cells - UA 0 SEEN /hpf (5-10)
[2021-09-28 20:28] LABS: Color, Urine Yellow (Yellow); Glucose, Dipstick Normal (Normal); Ketone-Dipstick 5 mg/dl (Negative); Leukocyte Esterase-Dipstick 25 /ul (Negative); Nitrite-Dipstick Negative (Negative); Occult Blood-Urine 250 /ul (Negative); Protein-Dipstick 30 mg/dl (Negative); Specific Gravity, Urine 1.025 (1.002-1.030); Urine Bilirubin Dipstick Negative (Negative); Urine Clarity Clear (Clear); Urine Urobilinogen Normal (Normal)
[2021-09-28] MEDS: Ondansetron 4 MG/2 ML Vial IV (20:28)
[2021-09-28] MEDS: 0.9% Normal Saline 1,000 ML 1000 ML IV (20:28)
[2021-09-28] MEDS: Ketorolac 15 MG/ML Vial IV (20:28)
[2021-09-28 20:41] LABS: ALB/GLOB Ratio 0.9 RATIO (0.9-2.4); AST(SGOT) 104 U/L (15-37); Alanine Aminotransfer ALT/SGPT 85 U/L (13-56); Albumin, Serum 3.8 g/dL (3.2-5.0); Alkaline Phosphatase 219 U/L (45-117); Anion Gap 10 (5-15); BUN 19 mg/dL (7-18); BUN/Creat Ratio 20.9 RATIO (10-20); Calcium,Total 9.6 mg/dL (8.5-10.1); Chloride 104 mmol/L (98-107); Creatinine, Serum 0.91 mg/dL (0.55-1.02); EST Glomerular Filtration Rate 81 mL/min (>60); Est Glom Filt Rate - Afr Amer 98 mL/min (>60); Estimated Creatinine Clearance 99.83 ml/min; Globulin 4.2 g/dL (2.2-4.2); Glucose 97 mg/dL (74-106); Lipase 160 U/L (73-393); Sodium Level 140 mmol/L (136-145)
[2021-09-28 20:48] LABS: Bacteria RARE /hpf (None Seen); Mucous, Urine RARE /hpf (<or=2+); Red Blood Cells-Urine 0-5 SEEN /hpf (0-5); White Blood Cells 0-5 SEEN /hpf (0-5)
[2021-09-28] MEDS: Famotidine 200 MG/20 ML MDV 20 MG in 0.9% Normal Saline (Pres. free 8 ML 300 MG IV (20:50)
--- NOTE | 2021-09-28 20:51 | CM.ED ---
Social Work Note Reason for Referral: No PCP SW reviewed chart, pt has no PCP listed. SW in to speak with pt. Pt has guest present in room, gave SW permission to speak to her in front of her guest. Pt confirms she has no PCP. SW provided pt with PCP list/[facility] Healthcare Provider. Kaitlin Emerson MSW, [employer]ING EXECUTIVE
--- NOTE | 2021-09-28 20:57 | US_ITS ---
STUDY: ABDOMINAL ULTRASOUND - RIGHT UPPER QUADRANT REASON FOR VISIT: Female, 25 years old ruq pain TECHNIQUE: Ultrasound evaluation of the right upper quadrant was performed with real-time and static mittal-scale imaging. TECHNICAL QUALITY: Adequate. COMPARISON: None. FINDINGS: Liver: The liver measures 13.7 cm. There is normal echogenicity of the liver. The bile ducts are within normal limits. There is hepatic color flow. The direction of portal flow is hepatopetal. There is no demonstrated mass lesion. Gallbladder: Normal distended gallbladder. The gallbladder wall measures 3 mm. There is a positive sonographic Coleman''s sign. There is no pericholecystic fluid. There are multiple gallstones. Common Bile Duct (C.B.D.): The common bile duct measures 6 mm. Pancreas: Normal size of the head, body and tail of the pancreas. There is normal echogenicity of the pancreas. There is no demonstrated pancreatic mass or cyst. Right Kidney: Normal size of the right kidney. The right kidney measures 10.9 x 4.6 x 3.2 cm. Normal renal cortex. The right cortex measures 0.9 cm. There is no demonstrated renal mass or cyst. There is no right hydronephrosis. US/Gallbladder IMPRESSION: Cholelithiasis with positive Coleman''s sign suspicious for acute cholecystitis. HIDA scan would be helpful for further evaluation if clinically warranted Bile duct within upper limits of normal size without definitive evidence for intraductal stone Electronically Signed: Mk Hlal MD at 21:52 EDT ,
--- NOTE | 2021-09-28 22:47 | EX.PCM.CON.S ---
Assessment & Plan Assessment/Plan (1) Cholelithiasis: PLAN: The patient has cholelithiasis on ultrasound. Her gallbladder wall is normal thickness with no pericholecystic fluid or dilation of the common bile duct. She did have some mild elevation LFTs but she had this going back at least 6 weeks. The patient's pain does not happen every time she eats only every few days. The patient is 12 days postoperative from a delivery. I discussed laparoscopic cholecystectomy with her and I do recommend that she have a laparoscopic cholecystectomy. The timing of the cholecystectomy is hard to determine. I discussed the procedure with her and I offered her cholecystectomy tomorrow but I did inform her of increased risk of wound dehiscence with inflation of the abdomen. The patient does not want to risk this and believes that she can make it a few more weeks for her wound to heal. I did give her my card and I would like her to call in the morning and make an appointment for next week and then we will schedule her for surgery a week or 2 after that allowing for at least 3 more weeks of healing time for the incision. If the patient experiences worsening symptoms or nausea and vomiting anytime before then she should present to the emergency room and I or my partners would take her for cholecystectomy. The patient will try to tolerate diet here in the emergency room and as long as she can tolerate a diet she can be discharged home and follow-up with me. I discussed this plan with the patient and her in detail and they both agree with this treatment plan. I did once again offer her laparoscopic cholecystectomy tomorrow but she elects to try to wait to give her incision time to heal. Hans Zapata MD Pager: [facility] [address] [place] [address], [address] [place] [address] Office: HPI Consult Data Date of Consult: 09/28/21 HPI Narrative HPI Narrative: JOEL ELIAS, is a 25 F who presents to the emergency with abdominal pain. She feels better currently but she reports that earlier today after eating [employer]ipot[employer] she developed epigastric and right upper quadrant pain radiating to the back. Patient reports that she vomited because she thought it would make her feel better but it did not but with time she did feel better. Currently she rates her pain is minimal. She is not currently having any nausea or vomiting. She says that she been doing this for about 5 weeks. She is 12 days postoperative from a . [facility] Medical History Cholelithiasis Home Medications vitamins-iron fumarate 65 mg iron-folic acid 1 mg tablet 1 tab PO DAILY prengnacy 08/27/21 [History Last Taken 09/14/21] Pepcid AC 20 mg PO/SL DAILY PRN Heartburn 09/15/21 [History Last Taken Unknown] ferrous sulfate 325 mg (65 mg iron) tablet 325 mg PO BID #60 tabs 09/18/21 [Rx Last Taken Unknown] ibuprofen 600 mg tablet 600 mg PO Q8H PRN PRN pain #30 tabs 09/18/21 [Rx Last Taken Unknown] oxycodone 5 mg tablet 5 mg PO Q6H PRN PRN pain (scale score 7-10) 7 days #10 tabs 09/18/21 [Rx Last Taken Unknown] ondansetron HCl 4 mg tablet 1 tab PO PRN PRN Nausea 09/28/21 [History Last Taken Unknown] Allergy/AdvReac Type Severity Reaction Status Date / Time amoxicillin Allergy Other Verified 09/06/21 02:46 Penicillins [PCN] Allergy Other Verified 09/06/21 02:46 Surgical History Delivery by section No history of previous surgery Social History Smoking Status: Never smoker alcohol intake: never substance use type: does not use ROS Constitutional Constitutional: Denies anorexia or fatigue Eyes Eyes: Denies blurry vision ENT HEENT: Denies abnormal hearing Cardiovascular Cardiovascular: Denies chest pain Respiratory/Chest Respiratory/Chest: Denies cough or dyspnea Gastrointestinal Gastrointestinal: Reports abdominal pain and vomiting; Denies dysphagia, hematemesis, hematochezia or nausea Genitourinary Genitourinary: Denies change in urinary stream Musculoskeletal Musculoskeletal: Denies back pain Integumentary Integumentary: Denies new lesions Neurologic Neurologic: Denies abnormal gait Psychiatric Psychiatric: Denies depression Endocrine Endocrinology: Denies flushing Physical Exam Const alert and oriented x3 HEENT normocephalic Eyes PERRL Chest inspection of chest normal Resp normal respiratory effort Cardio Rate: regular rate Rhythm: regular rhythm GI soft to palpation and non-distended Palpation: tender RUQ Lab / Micro Data Result Diagrams: 09/28/21 20:15 09/28/21 20:15 Labs: Laboratory Results - last 24 hr 09/28/21 20:15: WBC 11.9 H, RBC 4.17 L, Hgb 10.5 L, Hct 34.6 L, MCV 83.0, MCH 25.2 L, MCHC 30.3 L, RDW Std Deviation 48.2 H, RDW Coeff of Leila 16.5 H, Plt Count 323, MPV 10.8, Immature Gran % (Auto) 0.600, Neut % (Auto) 80.3 H, Lymph % (Auto) 13.4 L, [place] % (Auto) 4.8, Eos % (Auto) 0.4, Baso % (Auto) 0.5, Absolute Neuts (auto) 9.6 H, Absolute Lymphs (auto) 1.59, Nucleated RBC % 0 09/28/21 20:15: Sodium 140, Potassium 4.0, Chloride 104, Carbon Dioxide 26.0, Anion Gap 10, BUN 19 H, Creatinine 0.91, Estim Creat Clear Calc 99.83, Est GFR (MDRD) Af Amer 98, Est GFR (MDRD) Non-Af 81, BUN/Creatinine Ratio 20.9 H, Glucose 97, Calcium 9.6, Total Bilirubin 1.00, AST 104 H, ALT 85 H, Alkaline Phosphatase 219 H, Total Protein 8.0, Albumin 3.8, Globulin 4.2, Albumin/Globulin Ratio 0.9, Lipase 160 09/28/21 20:20: Urine Color Yellow, Urine Clarity Clear, Urine pH 5.0, Ur Specific [place] 1.025, Urine Protein 30 H, Urine Glucose (UA) Normal, Urine Ketones 5 H, Urine Occult Blood 250 H, Urine Nitrite Negative, Urine Bilirubin Negative, Urine Urobilinogen Normal, Ur Leukocyte Esterase 25 H, Urine RBC 0-5 SEEN, Urine WBC 0-5 SEEN, Ur Squamous Epith Cells 0 SEEN, Urine Bacteria RARE, Urine Mucus RARE Radiology Impression Gallbladder Ultrasound 09/28/21 20:57 IMPRESSION: Cholelithiasis with positive Coleman''s sign suspicious for acute cholecystitis. HIDA scan would be helpful for further evaluation if clinically warranted Bile duct within upper limits of normal size without definitive evidence for intraductal stone Electronically Signed: Mk Hall MD at 21:52 EDT ,
[2021-09-28 23:00] VITALS: BP 128/85; PULSE 79; RESP 15; O2SAT 98
== END 2021-09-28 23:26 | disposition home or self-care (01) ==
PROVIDERS: Emergency Provider Student in an Organized Health Care Education/Training Program; Visit Provider Student in an Organized Health Care Education/Training Program
DX: K80.20 Calculus of gallbladder without cholecystitis without obstruction (principal); D72.829 Elevated white blood cell count, unspecified
CPT/HCPCS: 76705; 80053; 81001; 83690; 85025; 96361; 96374; 96375; 99283; J7030; A4216; J2405; J3490

== ENCOUNTER 2021-10-06 14:33 | Observation (INO) | payer BC, SELFPAY ==
[2021-10-06 14:34] VITALS: BP 120/97; PULSE 141; RESP 18; TEMP 36.7; O2SAT 96; BMI 27.5
--- NOTE | 2021-10-06 14:38 | US_ITS ---
STUDY: ABDOMINAL ULTRASOUND - RIGHT UPPER QUADRANT REASON FOR VISIT: Female, 25 years old . Right upper quadrant pain. TECHNIQUE: Ultrasound evaluation of the right upper quadrant was performed with real-time and static mittal-scale imaging. TECHNICAL QUALITY: Adequate. COMPARISON: Comparison is made with prior study dated 09/28/2021. FINDINGS: Liver: The liver measures 15.9 cm. There is normal echogenicity of the liver. Slightly prominent central intrahepatic biliary ducts. There is hepatic color flow. The direction of portal flow is hepatopetal. There is no demonstrated mass lesion. Gallbladder: There is a mildly distended gallbladder. The gallbladder wall measures 2 mm. There is a positive sonographic Coleman''s sign. There is no pericholecystic fluid. There are multiple echogenic structures within the gallbladder, consistent with multiple gallstones. Common Bile Duct (C.B.D.): The common bile duct measures 7 mm. Pancreas: Normal size of the head, body and tail of the pancreas. There is normal echogenicity of the pancreas. There is no demonstrated pancreatic mass or cyst. Right Kidney: Normal size of the right kidney. The right kidney measures 10.4 cm x 5 cm x 3.7 cm. Normal renal cortex. The right cortex measures 1.0 cm. There is no demonstrated renal mass or cyst. There is no right hydronephrosis. US/Gallbladder IMPRESSION: Multiple gallstones. Positive COLEMAN sign. Electronically Signed: Martin Coker MD at 15:45 EDT ,
[2021-10-06 14:44] VITALS: BP 121/79; PULSE 115; RESP 18; O2SAT 98
--- NOTE | 2021-10-06 14:48 | ED.VIS.GI ---
HPI HPI - GI History of Present Illness Chief Complaint: Abd Pain Narrative Narrative: Patient presenting with continued gallbladder pain. Patient was seen here by myself 09/28/2021 for similar pain. She had a right upper quadrant ultrasound which was essentially normal. She was evaluated by Dr. Zapata. Patient was postoperative day 12 from a at that point. She had been having similar gallbladder attacks prior to her arrival on 09/28/2021. At that point through shared decision making we determined that they would try to wait as long as possible because the patient does have risk of worsening outcome secondary to incisions from the not healing all the way prior to her new surgery. At that point she had received Toradol and was pain-free. She was able to passively p.o. challenge. She states that 2 days ago she went to [place] because this was closer to her house. She reports that they told her her labs were fine and there was nothing they needed to do because she already had a surgical follow-up. Patient reports that she tried to make an appointment with Dr. Zapata but has not had follow-up yet. She states that her pain has been constant for 3 days. She has not been able to hold down any food or fluids. She states that the Zofran is not helping her nausea and she cannot hold down the oxycodone that she was prescribed. Patient denies any fever or chills. Patient states that she is making stool and urine. Patient does state that her incision site from her is healing well. She has not noted any problems. [facility] Medical History Cholelithiasis Home Medications vitamins-iron fumarate 65 mg iron-folic acid 1 mg tablet 1 tab PO DAILY prengnacy 08/27/21 [History Last Taken 09/14/21] Pepcid AC 20 mg PO/SL DAILY PRN Heartburn 09/15/21 [History Last Taken Unknown] ferrous sulfate 325 mg (65 mg iron) tablet 325 mg PO BID #60 tabs 09/18/21 [Rx Last Taken Unknown] ibuprofen 600 mg tablet 600 mg PO Q8H PRN PRN pain #30 tabs 09/18/21 [Rx Last Taken Unknown] oxycodone 5 mg tablet 5 mg PO Q6H PRN PRN pain (scale score 7-10) 7 days #10 tabs 09/18/21 [Rx Last Taken Unknown] ondansetron 4 mg disintegrating tablet 4 mg PO Q8H PRN nausea and vomiting #10 tabs 09/28/21 [Rx Last Taken Unknown] ondansetron HCl 4 mg tablet 1 tab PO PRN PRN Nausea 09/28/21 [History Last Taken Unknown] oxycodone-acetaminophen 5 mg-325 mg tablet (Endocet) 1 tab PO Q6H PRN pain 3 days #12 tabs 09/28/21 [Rx Last Taken Unknown] famotidine 20 mg tablet 20 tab PO BID 10/06/21 [History Last Taken Unknown] Allergy/AdvReac Type Severity Reaction Status Date / Time amoxicillin Allergy Hives Verified 10/06/21 15:57 Penicillins [PCN] Allergy Other Verified 10/06/21 14:37 Surgical History Delivery by section No history of previous surgery Social History Smoking Status: Never smoker alcohol intake: never substance use type: does not use ROS ROS ED Constitutional Constitutional ED: Denies chills or fever(s) ENT ENT ED: Denies rhinorrhea or sore throat Cardiovascular Cardiovascular: Denies chest pain or palpitations Respiratory/Chest Respiratory/Chest: Denies cough or dyspnea Gastrointestinal Gastrointestinal: Reports abdominal pain, nausea and vomiting Genitourinary Genitourinary ED: Denies dysuria or hematuria Musculoskeletal Musculoskeletal: Denies arthralgias or back pain Integumentary Denies abscess or Abrasions Neurologic Neurologic: Denies headache(s) Psychiatric Psychiatric: Denies anxiety or depression Endocrine Endocrinology: Denies polydipsia or polyphagia EXAM Physical Exam Const Vital Signs: 10/06/21 14:34 10/06/21 14:44 10/06/21 15:43 Temperature 98.1 F Temperature Source Temporal Pulse Rate 141 H 115 H 99 Respiratory Rate 18 18 16 Blood Pressure 120/97 H 121/79 H 113/72 Blood Pressure Mean 104 93 85 Pulse Ox 96 98 99 Oxygen Delivery Method Room Air Room Air Room Air Positive well nourished General Appearance ED: NAD; Negative for pallor HEENT Reports moist mucous membranes normocephalic and atraumatic Eyes PERRL and EOMs intact bilaterally General Eye ED: Negative for pale conjunctiva or scleral icterus Resp normal respiratory effort and clear to auscultation bilaterally Effort and Inspection: Negative for respiratory distress Auscultation: Negative for rales, rhonchi or wheezes Cardio regular rhythm Rate: tachycardic GI Palpation: tender RLQ and Coleman's sign Neuro CN's II-XII intact bilaterally, moves all extremities and no sensory deficits noted Sensorium / Orientation: alert Psych mental status grossly normal Skin Skin Narrative: Incisional scar from healing well. No surrounding erythema, edema, drainage. No tenderness to palpation at this region General Skin Exam: Negative for jaundice or pallor MDM MDM MDM Narrative Medical decision making narrative: Patient presenting with right upper quadrant pain. This is been persistent for 3 days. Patient states is not able to hold down food or fluids because of this. She does report that she ate a peanut butter jelly sandwich this morning which really set her off. Blood work today shows that she does not have a leukocytosis. Her hemoglobin is stable at 11.1. Her renal function and electrolytes are normal and she does not appear to be dehydrated. Her bilirubin is elevated over previous and is now 1.3. Her direct bilirubin is 0.48. Her AST and alkaline phosphatase are actually decreased. Her ALT is normal. Lipase while still negative is increased from 1 60 to[address] Ward who came to evaluate the patient at bedside. She did discuss that she would likely need cholecystectomy. She was concerned that some of the small stones might be going into some of the ducts. Patient initially treated with morphine and states she still had pain so she was given half a milligram of Dilaudid which seems to have helped her. After admitting the patient Dr. Ward wanted to give Zosyn however the patient reports a history of allergy to penicillin but she does not know what it is. I did initially order Cipro and Flagyl but after speaking with the pharmacy these will be contraindicated in breast-feeding which the patient currently has. After extended discussion with the pharmacy, surgery, the patient ultimately was determined that the patient's father stated that may be she had hives and maybe it was amoxicillin. It was also reported that this was maybe a couple days after treatment. Given this we ultimately determined to give the patient a dose of Zosyn. We will monitor her closely for allergic reaction. If she has one she will be treated. Patient amenable to this. Impression: 1. Acute cholelithiasis 2. Nausea/vomiting 3. Hyperbilirubinemia Lab Data Attestation: I reviewed the patient's lab results. Labs: Laboratory Results - last 24 hr 10/06/21 10/06/21 14:50 14:50 WBC 8.3 RBC 4.49 Hgb 11.1 L Hct 37.4 MCV 83.3 MCH 24.7 L MCHC 29.7 L RDW Std Deviation 48.0 H RDW Coeff of Leila 15.9 H Plt Count 355 MPV 10.6 Immature Gran % (Auto) 0.200 Neut % (Auto) 69.5 Lymph % (Auto) 21.4 [place] % (Auto) 6.9 Eos % (Auto) 1.2 Baso % (Auto) 0.8 Absolute Neuts (auto) 5.8 Absolute Lymphs (auto) 1.77 Nucleated RBC % 0 Sodium 141 Potassium 4.1 Chloride 108 H Carbon Dioxide 26.0 Anion Gap 7 BUN 13 Creatinine 0.99 Estim Creat Clear Calc 86.22 Est GFR (MDRD) Af Amer 88 Est GFR (MDRD) Non-Af 73 BUN/Creatinine Ratio 13.1 Glucose 80 Calcium 9.3 Total Bilirubin 1.30 H Direct Bilirubin 0.48 H AST 51 H ALT 44 Alkaline Phosphatase 129 H Total Protein 7.8 Albumin 4.1 Globulin 3.7 Lipase 392 Radiography Diagnostic Testing: Clinical Impression(s) from Imaging Studies Gallbladder Ultrasound 10/06/21 14:38 IMPRESSION: Multiple gallstones. Positive COLEMAN sign. Electronically Signed: Martin Coker MD at 15:45 EDT , Discharge Plan Triage Chief Complaint: Abd Pain ED Provider: Eric Torres Dx/Rx/DC Orders Prescriptions: No Action vit-iron fum-folic ac 65 mg iron- 1 mg Tablet 1 tab PO DAILY Pepcid AC 20 mg PO/SL DAILY PRN (Reason: Heartburn) ibuprofen 600 mg Tablet 600 mg PO Q8H PRN PRN (Reason: pain) Qty: 30 0RF oxycodone 5 mg Tablet 5 mg PO Q6H PRN PRN (Reason: pain (scale score 7-10)) 7 Days Qty: 10 0RF ferrous sulfate 325 mg (65 mg iron) tablet 325 mg PO BID Qty: 60 0RF ondansetron HCl 4 mg tablet 1 tab PO PRN PRN (Reason: Nausea) oxycodone-acetaminophen [Endocet] 5-325 mg tablet 1 tab PO Q6H PRN (Reason: pain) 3 Days Qty: 12 0RF ondansetron 4 mg tablet,disintegrating 4 mg PO Q8H PRN (Reason: nausea and vomiting) Qty: 10 0RF famotidine 20 mg tablet 20 tab PO BID Primary Care Provider: Care Physician,No Primary Referrals: Care Physician,No Primary [Primary Care Provider] -
[2021-10-06] MEDS: 0.9% Normal Saline 1,000 ML 999 ML IV (14:54)
[2021-10-06] MEDS: Ondansetron 4 MG/2 ML Vial IV (14:54)
[2021-10-06] MEDS: Morphine 4 MG/ML Syringe IV (14:54)
[2021-10-06 15:06] LABS: Absolute Lymphocyte Count 1.77 X10^3/uL (0.83-4.51); Absolute Neutrophil Count 5.8 X10^3/uL (2.0-7.7); Basophil# 0.07 X10^3/uL; Basophil% 0.8 % (0-1); Eosinophils% 1.2 % (0-5); Hematocrit 37.4 % (37-47); Hemoglobin 11.1 g/dL (12.0-15.0); Lymphocyte # 1.77 X10^3/ul (0.83-4.51); Lymphocyte % 21.4 % (19-41); Mean Corp Hgb Conc 29.7 g/dL (32-36); Mean Corpuscular Hgb 24.7 pg (27.0-32.0); Mean Corpuscular Volume 83.3 fL (81-99); Mean Platelet Vol. 10.6 fl (6.2-12.0); Monocyte# 0.57 X10^3/uL; Monocyte% 6.9 % (0-10); NRBC Flagged by Analyzer 0 % (0-5); Neutrophil # 5.75 X10^3/uL (2.7-7.7); Neutrophil % 69.5 % (47-70); Platelet Count 355 K/mm3 (150-450); RBC Distribution Width CV 15.9 % (11.6-14.6); Red Blood Count 4.49 M/mm3 (4.2-5.4); White Blood Count 8.3 K/mm3 (4.4-11.0)
[2021-10-06 15:18] LABS: AST(SGOT) 51 U/L (15-37); Alanine Aminotransfer ALT/SGPT 44 U/L (13-56); Albumin, Serum 4.1 g/dL (3.2-5.0); Alkaline Phosphatase 129 U/L (45-117); Anion Gap 7 (5-15); BUN 13 mg/dL (7-18); BUN/Creat Ratio 13.1 RATIO (10-20); Bilirubin, Direct 0.48 mg/dL (0.00-0.30); Calcium,Total 9.3 mg/dL (8.5-10.1); Chloride 108 mmol/L (98-107); Creatinine, Serum 0.99 mg/dL (0.55-1.02); EST Glomerular Filtration Rate 73 mL/min (>60); Est Glom Filt Rate - Afr Amer 88 mL/min (>60); Estimated Creatinine Clearance 86.22 ml/min; Globulin 3.7 g/dL (2.2-4.2); Glucose 80 mg/dL (74-106); Lipase 392 U/L (73-393); Potassium 4.1 mmol/L (3.5-5.1); Protein, Total 7.8 g/dL (6.4-8.2); Sodium Level 141 mmol/L (136-145)
[2021-10-06] MEDS: HYDROmorphone 0.5 MG/0.5 ML SYRINGE IV (15:41)
--- NOTE | 2021-10-06 15:41 | HP.PCM_ITS ---
HPI - General General Date of Admission: 10/06/21 HPI Narrative JOEL ELIAS, is a 25 F who presents to the ER due to continued right upper quadrant epigastric pain with nausea and vomiting. Patient is known to have gallstones seen previously about a week ago by Dr. Zapata in the ER they did discuss laparoscopic cholecystectomy but patient agreed to try to wait as she was just 12 days out from . Patient currently has a normal white blood cell count does have slight elevations of LFT with total bili of 1.3, direct bili 0.48, AST 51 ALT normal at 44 and alk phos at 129. Patient previously had higher elevation of LFTs. Patient states her right upper quadrant pain epigastric pain has been constant about 5/10 which lasts all day and patient is not really able to eat or drink well. Patient states she did have peanut butter sandwich which made the pain go to a 10/10 today currently about a 7/10 when arriving at the ER. Patient's ultrasound the ER did show gallbladder wall 2 mm, multiple gallstones, common bile duct 7 mm, no pericholecystic fluid, tech called positive Coleman sign. [facility] Medical History Cholelithiasis Home Medications ferrous sulfate 325 mg (65 mg iron) tablet 325 mg PO BID #60 tabs 09/18/21 [Rx Last Taken 2 Weeks Ago ~09/22/21] ondansetron HCl 4 mg tablet 4 mg PO DAILY PRN PRN Nausea 09/28/21 [History Last Taken 10/06/21] acetaminophen 500 mg tablet 1,000 mg PO Q6H PRN Pain 10/06/21 [History Last Taken 10/06/21] ibuprofen 200 mg tablet 600 mg PO Q6H PRN Pain 10/06/21 [History Last Taken 10/06/21 03:00] Allergy/AdvReac Type Severity Reaction Status Date / Time amoxicillin Allergy Hives Verified 10/06/21 15:57 Penicillins [PCN] Allergy Other Verified 10/06/21 14:37 Surgical History Delivery by section No history of previous surgery Social History Smoking Status: Never smoker alcohol intake: never substance use type: does not use Vital Signs Vital Signs Vital Signs: 10/06/21 14:34 10/06/21 14:44 Temperature 98.1 F Temperature Source Temporal Pulse Rate 141 H 115 H Respiratory Rate 18 18 Blood Pressure 120/97 H 121/79 H Blood Pressure Mean 104 93 Pulse Ox 96 98 Oxygen Delivery Method Room Air Room Air Weight Weight: 136 lb 3.931 oz Body Mass Index (BMI) 27.5 Physical Exam Const alert, oriented x3 and no apparent distress HEENT normocephalic and head/scalp atraumatic Resp normal respiratory effort Cardio regular rate GI soft to palpation; Negative for non-distended GI Narrative: Patient is a incision which is healing well. No signs of infection Palpation: tender epigastric and RUQ; Negative for guarding Extremity no clubbing, cyanosis or edema Neuro CN's II-XII intact bilaterally Psych mental status grossly normal Results Lab / Micro Data Result Diagrams: 10/07/21 06:00 10/07/21 06:00 Labs: Laboratory Results - last 24 hr 10/06/21 14:50: WBC 8.3, RBC 4.49, Hgb 11.1 L, Hct 37.4, MCV 83.3, MCH 24.7 L, MCHC 29.7 L, RDW Std Deviation 48.0 H, RDW Coeff of Leila 15.9 H, Plt Count 355, MPV 10.6, Immature Gran % (Auto) 0.200, Neut % (Auto) 69.5, Lymph % (Auto) 21.4, Evans % (Auto) 6.9, Eos % (Auto) 1.2, Baso % (Auto) 0.8, Absolute Neuts (auto) 5.8, Absolute Lymphs (auto) 1.77, Nucleated RBC % 0 10/06/21 14:50: Sodium 141, Potassium 4.1, Chloride 108 H, Carbon Dioxide 26.0, Anion Gap 7, BUN 13, Creatinine 0.99, Estim Creat Clear Calc 86.22, Est GFR (MDRD) Af Amer 88, Est GFR (MDRD) Non-Af 73, BUN/Creatinine Ratio 13.1, Glucose 80, Calcium 9.3, Total Bilirubin 1.30 H, Direct Bilirubin 0.48 H, AST 51 H, ALT 44, Alkaline Phosphatase 129 H, Total Protein 7.8, Albumin 4.1, Globulin 3.7, Lipase 392 Assessment & Plan Assessment/Plan (1) Cholelithiasis: (2) Elevated liver enzymes: PLAN: Plan We will plan to keep patient n.p.o./IV fluids. We will also place patient on IV antibiotics Cipro/Flagyl if okay with breast-feeding. We will check labs in the morning as well. If patient's LFTs are higher patient may need an ERCP prior to the lap gregorio. Reviewed the anatomy with the patient and discussed the procedure: laparoscopic cholecystectomy with possible cholangiograms, possible open. Review risks including but not limited to bleeding, infection, hernia, bile leak, retained gallstones requiring another procedure ERCP- Endoscopic Retrograde Cholangiopancreatography, injury to another organ (bile ducts, common bile duct, small bowel, etc.),, increased chance of dehiscence to the incision and conversion to an open procedure. All questions were answered. Patient no further question this time. Niki Ward M.D. Pager: [phone] [facility] [address] [place] [address], [address] [place] [address] Office: [phone]
[2021-10-06 15:43] VITALS: BP 113/72; PULSE 99; RESP 16; O2SAT 99
[2021-10-06 16:18] VITALS: BP 109/69; PULSE 99; RESP 16; TEMP 36.1; O2SAT 99
--- NOTE | 2021-10-06 16:26 | NURSING ---
Addendum entered by Rose Marie Wong 10/06/21 16:30: MED SURG NOT ICU Original Note: ICU OBS ROBOTHAM CHOLELITHIASIS
[2021-10-06 17:07] VITALS: BP 110/67; PULSE 88; RESP 16; TEMP 36.4; O2SAT 100
[2021-10-06] MEDS: 0.9% Normal Saline 1,000 ML 100 ML IV (18:34)
[2021-10-06 23:00] VITALS: BP 111/69; PULSE 66; RESP 16; TEMP 36.6; O2SAT 98
[2021-10-07] VITALS (13 sets, daily range): BP systolic 100–138; BP diastolic 53–87; PULSE 64–96; RESP 16–98; TEMP 36.2–37.8; O2SAT 98–100; BMI 27.5
--- NOTE | 2021-10-07 | GALL_PTH ---
PATIENT: JOEL ELIAS LOC: MS3 U#:[id number] AGE/SX: 25/F ROOM: MS321 RE10/06/[address]: Dr. Niki Ward MD : 1995 BED: 1 DIS: 10/07/2021 SPEC #: [id number] RECD: 10/07/21 17:33 STATUS: JESSICA HICKSAlexandre #: [id number] SALVADOR: 10/07/21 00:[address]: Niki Ward DEPT: SURGICAL PATHOLOGY RECD BY: Jaden Richter ENTERED: 10/08/21 09:38 SP TYPE: JUAN R PRINCE DR: No Primary Care Phys Tissues: Gallbladder, NOS Procedures: Surgery Specimen Level III HEADER OPERATION: Laparoscopic cholecystectomy with IOC PRE-OP DIAGNOSIS: Cholelithiasis, elevated liver enzymes TISSUE SUBMITTED: Gallbladder MICROSCOPIC DIAGNOSIS Gallbladder, cholecystectomy: Chronic cholecystitis and cholesterolosis. AM:esha 10/09/2021 MICROSCOPIC DESCRIPTION Slides are reviewed. GROSS DESCRIPTION Received is one container labeled with the patient's name and designated gallbladder. The specimen consists of a gallbladder measuring 8.7 x 3.5 x 3 cm. The external surface is smooth and glistening. Focally, it is granular, hemorrhagic and contains cautery artifact. The lumen of the gallbladder contains yellow-green mucoid bile and multiple green to yellow calculi ranging in size from <0.1 to 0.5 cm in greatest dimension. The mucosa is bile-stained and without any mass lesions. The gallbladder wall averages 0.2 cm in thickness and is free of mass lesions. Viscosity Inspector sections of the gallbladder and the cystic duct at margin of resection are submitted in one cassette. / AM:esha 10/08/2021 TC:3 [facility]: [id number]
--- NOTE | 2021-10-07 05:48 | EKG12_ITS ---
Test Reason : PRE-OP Blood Pressure : / mmHG Vent. Rate : 057 BPM Atrial Rate : 057 BPM P-R Int : 146 ms QRS Dur : 076 ms QT Int : 434 ms P-R-T Axes : 037 039 019 degrees QTc Int : 422 ms Sinus bradycardia with sinus arrhythmia Otherwise normal ECG No previous ECGs available Confirmed by CODY MALIK, ALEXA ([id number]), editorial specialist SOULEYMANE ALVARADO ([id number]) on 10/13/2021 11:15:11 AM Referred By: FOSTER Confirmed By:ALEXA ROSS MD
[2021-10-07 06:59] LABS: Absolute Lymphocyte Count 2.17 X10^3/uL (0.83-4.51); Absolute Neutrophil Count 1.3 X10^3/uL (2.0-7.7); Basophil# 0.04 X10^3/uL; Eosinophils% 2.6 % (0-5); Hematocrit 30.7 % (37-47); Hemoglobin 9.2 g/dL (12.0-15.0); Lymphocyte # 2.17 X10^3/ul (0.83-4.51); Lymphocyte % 55.4 % (19-41); Mean Corpuscular Hgb 24.9 pg (27.0-32.0); Mean Platelet Vol. 10.6 fl (6.2-12.0); Monocyte# 0.33 X10^3/uL; Monocyte% 8.4 % (0-10); NRBC Flagged by Analyzer 0 % (0-5); Neutrophil # 1.27 X10^3/uL (2.7-7.7); Neutrophil % 32.3 % (47-70); Platelet Count 241 K/mm3 (150-450); RBC Distribution Width CV 15.9 % (11.6-14.6); White Blood Count 3.9 K/mm3 (4.4-11.0)
[2021-10-07 07:39] LABS: AST(SGOT) 32 U/L (15-37); Alanine Aminotransfer ALT/SGPT 43 U/L (13-56); Albumin, Serum 3.1 g/dL (3.2-5.0); Alkaline Phosphatase 112 U/L (45-117); Anion Gap 8 (5-15); BUN 8 mg/dL (7-18); BUN/Creat Ratio 11.2 RATIO (10-20); Calcium,Total 8.5 mg/dL (8.5-10.1); Chloride 110 mmol/L (98-107); Creatinine, Serum 0.72 mg/dL (0.55-1.02); EST Glomerular Filtration Rate 107 mL/min (>60); Est Glom Filt Rate - Afr Amer 129 mL/min (>60); Estimated Creatinine Clearance 118.56 ml/min; Glucose 65 mg/dL (74-106); Protein, Total 6.1 g/dL (6.4-8.2); Sodium Level 141 mmol/L (136-145)
[2021-10-07] MEDS: Dextrose 5%/0.9% NaCl 1,000 ML 140 ML IV (08:38)
--- NOTE | 2021-10-07 08:55 | PCM.PN.SRG ---
Subjective Subjective Patient denies abdominal pain currently. Patient's LFTs have improved Objective Data Objective Data Vital Signs: Vital Signs Temp Pulse Resp BP Pulse Ox O2 Del Method 98.2 F 69 16 112/74 100 Room Air 10/07/21 08:41 10/07/21 08:41 10/07/21 08:41 10/07/21 08:41 10/07/21 08:41 10/07/21 08:41 Oxygen Delivery Method Room Air Weight: 136 lb 3.931 oz Body Mass Index (BMI) 27.5 Intake & Output: Intake and Output for Last 24 Hours 10/05/21 10/06/21 10/07/21 23:59 23:59 23:59 Intake Total 1456.67 / 1456.67 643.33 / 643.33 Balance 1456.67 / 1456.67 643.33 / 643.33 Lab / Micro Data Result Diagrams: 10/07/21 06:00 10/07/21 06:00 Labs: Laboratory Results - last 24 hr 10/06/21 14:50: WBC 8.3, RBC 4.49, Hgb 11.1 L, Hct 37.4, MCV 83.3, MCH 24.7 L, MCHC 29.7 L, RDW Std Deviation 48.0 H, RDW Coeff of Leila 15.9 H, Plt Count 355, MPV 10.6, Immature Gran % (Auto) 0.200, Neut % (Auto) 69.5, Lymph % (Auto) 21.4, [place] % (Auto) 6.9, Eos % (Auto) 1.2, Baso % (Auto) 0.8, Absolute Neuts (auto) 5.8, Absolute Lymphs (auto) 1.77, Nucleated RBC % 0 10/06/21 14:50: Sodium 141, Potassium 4.1, Chloride 108 H, Carbon Dioxide 26.0, Anion Gap 7, BUN 13, Creatinine 0.99, Estim Creat Clear Calc 86.22, Est GFR (MDRD) Af Amer 88, Est GFR (MDRD) Non-Af 73, BUN/Creatinine Ratio 13.1, Glucose 80, Calcium 9.3, Total Bilirubin 1.30 H, Direct Bilirubin 0.48 H, AST 51 H, ALT 44, Alkaline Phosphatase 129 H, Total Protein 7.8, Albumin 4.1, Globulin 3.7, Lipase 392 10/07/21 06:00: WBC 3.9 L, RBC 3.70 L, Hgb 9.2 L, Hct 30.7 L, MCV 83.0, MCH 24.9 L, MCHC 30.0 L, RDW Std Deviation 48.0 H, RDW Coeff of Leila 15.9 H, Plt Count 241, MPV 10.6, Immature Gran % (Auto) 0.300, Neut % (Auto) 32.3 L, Lymph % (Auto) 55.4 H, [place] % (Auto) 8.4, Eos % (Auto) 2.6, Baso % (Auto) 1.0, Absolute Neuts (auto) 1.3 L, Absolute Lymphs (auto) 2.17, Nucleated RBC % 0 10/07/21 06:00: Sodium 141, Potassium 4.0, Chloride 110 H, Carbon Dioxide 23.0, Anion Gap 8, BUN 8, Creatinine 0.72, Estim Creat Clear Calc 118.56, Est GFR (MDRD) Af Amer 129, Est GFR (MDRD) Non-Af 107, BUN/Creatinine Ratio 11.2, Glucose 65 L, Calcium 8.5, Total Bilirubin 1.10 H, AST 32, ALT 43, Alkaline Phosphatase 112, Total Protein 6.1 L, Albumin 3.1 L, Globulin 3.0, Albumin/Globulin Ratio 1.0 Radiography Diagnostic Testing: Radiology Impression Gallbladder Ultrasound 10/06/21 14:38 IMPRESSION: Multiple gallstones. Positive ARELLANO sign. Electronically Signed: Martin Coker MD at 15:45 EDT , Physical Exam Const alert, oriented x3 and no apparent distress Resp normal respiratory effort Cardio regular rate GI soft to palpation and non-tender; Negative for non-distended Palpation: Negative for guarding Assessment & Plan Assessment/Plan (1) Cholelithiasis: (2) Elevated liver enzymes: PLAN: Plan Patient's LFTs have improved we will plan for a laparoscopic cholecystectomy today about 1430. Patient no further question at this time. Niki Ward M.D. Pager: [phone] [facility] [address] [place] [address], [facility], [address] [place] [address] Office: [phone]
[2021-10-07 12:40] LABS: Bedside Glucose 80 mg/dL (74-106)
--- NOTE | 2021-10-07 15:26 | RAD_ITS ---
STUDY: INTRAOPERATIVE CHOLANGIOGRAM. REASON FOR EXAM: Female, 25 years old. LAP ASIYA WITH IOC FLUOROSCOPY TIME (if supplied): ( 10 seconds ) minutes/seconds. A cine loop of 66 images was obtained. TECHNIQUE: An intraoperative Cholangiogram was performed by the surgeon. Imaging was submitted. COMPARISON: None. FINDINGS: The intra and extrahepatic biliary ducts are unremarkable. Free flow of contrast is seen into the duodenum. RAD/Cholangiogram/ O R,Initial IMPRESSION: Unremarkable intraoperative cholangiogram. Electronically Signed: Martin Coker MD at 8:15 EDT ,
[2021-10-07] MEDS: Lactated Ringers 1,000 ML 100 ML IV (16:16)
[2021-10-07] MEDS: Bupivacaine 0.25% 30 ML Vial (16:20)
--- NOTE | 2021-10-07 16:27 | PCM.OPRPT ---
Report of Operation Date of Procedure: 10/07/21 Pre-Operative Diagnosis: Cholelithiasis/acute cholecystitis, elevated liver function Post-Operative Diagnosis: Same Surgery/Procedure Performed:: Laparoscopic cholecystectomy with cholangiograms Surgeon: Niki Ward ruching machine operator: Leonel Paredes Type of Anesthesia: General/Supplemental Anesthesiologist: Amari Jimenez Special Medications: Zosyn 3.375 g IV every 8 hours on the floor Estimated Blood Loss (mL): <10 cc Description of Procedure: Indications: this is a 25 year-old female who developed abdominal pain/nausea/vomiting and on workup was found to have cholelithiasis, with a normal common bile duct. Laparoscopic cholecystectomy was elected. Description procedure: The patient was placed on operating table in supine position. A timeout was completed verifying correct patient, procedure, site, position and special equipment prior to beginning procedure. General Anesthesia was induced. The abdomen was prepped and draped in usual sterile fashion. An incision was made in the natural skin line below the umbilicus. The fascia was elevated and incised. The peritoneum was elevated and incised. Entry into the peritoneum was confirmed visually and no bowel was noted in the vicinity of the incision. Miles trocar was placed. The abdomen was insufflated with carbon dioxide to a pressure of 12-15 mmHg. Patient tolerated insufflation well. The laparoscope was then inserted and abdomen inspected. No injuries from initial trocar placement were noted. Additional trochars were then inserted in the following locations 5 mm trocar in the epigastrium and 2 more 5 mm trochars along the right costal margin. The abdomen was inspected no abnormalities were found. The table is placed in reverse Trendelenburg position with the right side up. The dome of the gallbladder was grasped with atraumatic grasper passed through the lateral port and retracted over the dome of the liver. Infundibulum was then grasped with atraumatic grasper through the midclavicular port and retracted to the right lower quadrant. This maneuver exposed Calot's triangle. The peritoneum overlying the gallbladder infundibulum was then incised and cystic duct and artery identified and circumferentially dissected. Dumont catheter was used for cholangiograms. The cholangiogram showed good filling of the common bile duct into the duodenum with no filling defects, good filling of the right and left bile ducts as well. The cystic duct and artery were then doubly clipped and divided close to the gallbladder. The gallbladder then dissected from its peritoneal attachments by electrocautery. Hemostasis was checked and the gallbladder and contained stones were removed using the endoscopic retrieval bag through the umbilical port. The gallbladder is passed off table as specimen. The gallbladder fossa was irrigated with saline and hemostasis obtained. There is no evidence of bleeding from the gallbladder fossa or cystic artery leakage of bile from the cystic duct stump. Secondary trochars removed under direct vision. No bleeding was noted the trocar sites. The laparoscope was withdrawn and umbilical trocar removed. The abdomen was allowed to collapse. The fascia of the 12 mm trocar was closed with a [id number] 0 Vicryl suture. The skin was closed with sutures of 4-0 Monocryl and Steri-Strips. The patient was extubated. The patient tolerated procedure well and was taken to the postanesthesia care unit in stable condition. Complications none
--- NOTE | 2021-10-07 16:31 | DCINST_ITS ---
Discharge Instructions Diet Discharge Diet: Light diet - advance as tolerated Activity Discharge Activity: May Not Drive (while taking narcotic pain medications.) May shower in (days): 1 Lifting Restrictions: no lifting >20 lbs x 2 wks, no strenuous exercise for 4 wks Dressing / Incision Call your doctor if your incision/area has: Continuous Slow Oozing, Sudden Increased Bleeding, Increased Pain/ Swelling, Increased Redness, Foul Smelling Discharge and Swelling at the incision site Call your doctor if you observe: Fever of 101 or Higher Remove Dressing in: 2 days Cleanse incision/area with: Soap & Water Additional Dressing/Incision Instructions:: Steri-Strips will fall off in 7 to 10 days, if they do not fall off okay to remove after 10 days. Follow Up Care Please Follow Up With: Niki Ward MD When: Call the office for a follow-up appointment 2 weeks; after 5 PM and on the weekends call [phone] with any concerns. Test Results: Test results from this visit will be discussed in further detail at your follow- up appointment, if applicable. Discharge Plan Admission Admit Date/Time: 10/06/21 15:48 Attending Provider: Niki Ward Primary Care Provider: Lorena Zaidi Primary Discharge Orders/Prescriptions Prescriptions: New oxycodone-acetaminophen 5-325 mg tablet 1 tab PO Q6H PRN (Reason: pain) 3 Days Qty: 10 0RF Continued ferrous sulfate 325 mg (65 mg iron) tablet 325 mg PO BID Qty: 60 0RF ondansetron HCl 4 mg tablet 4 mg PO DAILY PRN PRN (Reason: Nausea) acetaminophen 500 mg Tablet 1,000 mg PO Q6H PRN (Reason: Pain) ibuprofen 200 mg Tablet 600 mg PO Q6H PRN (Reason: Pain) Referrals / Follow Up: Care PhysicianLorena Primary [Primary Care Provider] - Disposition Disposition (needs filled in before D/C Order can be placed): Home, Self Care
[2021-10-07] MEDS: oxyCODONE 5 MG Tablet PO (18:40)
== END 2021-10-07 20:17 | disposition home or self-care (01) ==
LOC: ED 15:53 → MS3 16:32
PROVIDERS: Physician Assistant; Admitting Provider Surgery; Emergency Provider Student in an Organized Health Care Education/Training Program; Visit Provider Surgery
PROC: (CPT 47610; principal; 2021-10-07 14:25)
DX: O99.63 Diseases of the digestive system complicating the puerperium (principal); R74.8 Abnormal levels of other serum enzymes; E80.6 Other disorders of bilirubin metabolism; K81.2 Acute cholecystitis with chronic cholecystitis; Z79.899 Other long term (current) drug therapy
CPT/HCPCS: 47563; 00790; 36415; 74300; 76000; 76705; 80048; 80053; 80076; 82962; 83690; 85025; 88304; 93005; 96361; 96365; 96366; 96375; 99218; 99251; 99283; J7030; J7120; A4216; G0378; G0463; J0744; J2405

== ENCOUNTER → 2022-11-30 | Outpatient (CLI) | payer OTHER, SELFPAY ==
[2022-12-02 22:06] LABS: Chlamydia By Nucleic Acid AMP Negative (Negative); Gonococcus By Nucleic Acid AMP Negative (Negative)
== END | disposition home or self-care (01) ==
LOC: LAB 15:00
PROVIDERS: Referring Provider Advanced Practice Midwife; Visit Provider Advanced Practice Midwife
DX: O09.90 Supervision of high risk pregnancy, unspecified, unspecified trimester (principal); Z3A.00 Weeks of gestation of pregnancy not specified
CPT/HCPCS: 87086; 87491; 87591

== ENCOUNTER 2022-12-22 11:30 | Emergency (ER) | payer OTHER, SELFPAY ==
[2022-12-22 11:31] VITALS: BP 134/88; PULSE 131; RESP 18; TEMP 35.7; O2SAT 100; BMI 29.5
--- NOTE | 2022-12-22 11:46 | US_ITS ---
STUDY: FIRST TRIMESTER OBSTETRICAL ULTRASOUND REASON FOR EXAM: Female, 27 years old vaginal bleeding LMP: September 28, 2022. TECHNIQUE: Transabdominal and Transvaginal TECHNICAL QUALITY: Adequate. PRIOR ULTRASOUND: None. FINDINGS: There is visualization of a single gestational sac in a normal intrauterine position. The mean sac diameter (MSD) measures 6.43 cm, indicating an estimated gestational age (EGA) of 12 weeks, 5 days. The gestational sac shape is within normal limits. There is no demonstrated yolk sac. The placenta is non-visualized. There is visualization of a live embryo. The crown-rump length (CRL) measures 7.24 cm, indicating an estimated gestational age (EGA) of 13 weeks, 2 days. There is demonstrated cardiac activity with a heart rate of 145 bpm. The estimated gestation age (EGA) by LMP is 12 weeks, 1 days. The estimated date of delivery (JUSTIN) by LMP is July 05, 2019. The estimated gestation age (EGA) by US is 13 weeks, 0 days. The estimated date of delivery (JUSTIN) by US is June 29, 2023. The uterus measures 14.5 cm x 9.6 cm x 7.2 cm. There is no demonstrated uterine fibroid. The cervix is closed. The right ovary measures 2.7 cm x 2.3 cm x 2.4 cm. There is no right ovarian cyst. There is no visualized right adnexal mass or complex lesion. The left ovary measures 2.7 cm x 1.9 cm x 1.4 cm. There is no left ovarian cyst. There is no visualized left adnexal mass or complex lesion. There is no fluid in the cul de sac. US/Init OB < 14Wks US IMPRESSION: Single live intrauterine gestation with mean gestational age of 13 weeks. Electronically Signed: Martin Coker MD at 13:46 EDT ,
[2022-12-22 12:08] LABS: Absolute Lymphocyte Count 2.15 X10^3/uL (0.83-4.51); Absolute Neutrophil Count 4.4 X10^3/uL (2.0-7.7); Basophil# 0.04 X10^3/uL; Basophil% 0.5 % (0-1); Eosinophil# 0.17 X10^3/uL; Eosinophils% 2.3 % (0-5); Hematocrit 38.9 % (37-47); Hemoglobin 12.6 g/dL (12.0-15.0); Lymphocyte # 2.15 X10^3/ul (0.83-4.51); Lymphocyte % 29.4 % (19-41); Mean Corp Hgb Conc 32.4 g/dL (32-36); Mean Corpuscular Volume 80.2 fL (81-99); Mean Platelet Vol. 10.8 fl (6.2-12.0); Monocyte% 6.8 % (0-10); NRBC Flagged by Analyzer 0 % (0-5); Neutrophil # 4.38 X10^3/uL (2.7-7.7); Platelet Count 202 K/mm3 (150-450); RBC Distribution Width CV 14.2 % (11.6-14.6); RBC Distribution Width SD 41.1 fl (35.1-43.9); Red Blood Count 4.85 M/mm3 (4.2-5.4); White Blood Count 7.3 K/mm3 (4.4-11.0)
--- NOTE | 2022-12-22 12:10 | ED.VIS.FEGU ---
HPI HPI - Female History of Present Illness Chief Complaint: Vag Bld, Preg Narrative Narrative: 27-year-old female currently 13 weeks with confirmed uterine previously. She had vaginal bleeding since about an hour ago. Denies any pain. No passage of clots. No loss of fluid. Patient states this is her second . She had no complications with her first. She states that she sees Dr. Lynne as an outpatient. Patient that she feels otherwise well. Patient states she went through 1 pad during this hour. Patient is O+. PFSH PFS Medical History delivery delivered Cholelithiasis Gestational hypertension without significant proteinuria, affecting puerperium Postoperative anemia Home Medications multivitamin no.47-iron fum 27 mg-folate no.1 1 mg-dha 300 mg capsule (PNV-DHA) cap PO 11/19/22 [History Last Taken Unknown] ondansetron 4 mg disintegrating tablet 4 mg PO Q6H PRN nausea and vomiting #30 tabs 11/25/22 [Rx Last Taken Unknown] Allergy/AdvReac Type Severity Reaction Status Date / Time amoxicillin Allergy Hives Verified 11/30/22 14:13 Penicillins [PCN] Allergy Other Verified 11/30/22 14:13 Family History Aunt Breast cancer, Onset Age: 56 Maternal Uterine cancer Maternal Surgical History Delivery by section No history of previous surgery S/P laparoscopic cholecystectomy Social History adopted: No household members: spouse and children number of children: 1 current occupational status: employed 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 pets and animals: Yes pets and animals: dog(s) history of recent travel: No sexually active: Yes Smoking Status: Never smoker alcohol intake: never substance use type: does not use well-balanced diet: daily or most days caffeine: No eating out: 1-3 times/week during the past year weight has: increased > 10 lbs what type of physical activity do you participate in: walking frequency: 1-2 times per week duration: 15-30 minutes/day shital/nondenominational: Sabianist seatbelt use: always do you feel safe at home: Yes additional social history: Main [facility] ROS ED Constitutional Constitutional ED: Denies chills, fever(s) or sweats Eyes Eyes: Denies blurry vision or change in vision ENT ENT ED: Denies ear pain or sore throat Cardiovascular Cardiovascular: Denies chest pain, palpitations or racing heartbeat Respiratory/Chest Respiratory/Chest: Denies cough, dyspnea or sputum Gastrointestinal Gastrointestinal: Denies abdominal pain, constipation, diarrhea, nausea or vomiting Genitourinary Genitourinary ED: Reports other Details: Vaginal bleeding ; Denies dysuria, hematuria or urinary frequency Musculoskeletal Musculoskeletal: Denies arthralgias, myalgias or neck pain Integumentary Denies abscess, Abrasions or rash Neurologic Neurologic: Denies headache(s), paresthesias or weakness Psychiatric Psychiatric: Denies anxiety, depression, suicidal ideation or suicidal thoughts Endocrine Endocrinology: Denies polydipsia or polyuria EXAM Physical Exam Const Vital Signs: 12/22/22 11:31 Temperature 96.3 F L Temperature Source Temporal Pulse Rate 131 H Respiratory Rate 18 Blood Pressure 134/88 H Blood Pressure Mean 103 Pulse Ox 100 Oxygen Delivery Method Room Air Positive well nourished General Appearance ED: NAD HEENT Reports moist mucous membranes Eyes PERRL and EOMs intact bilaterally Chest Wall inspection of chest normal and palpation of chest normal Resp normal respiratory effort and clear to auscultation bilaterally Auscultation: Negative for rales, rhonchi or wheezes Cardio regular rate Rate: tachycardic GI normal to inspection, nondistended, normoactive bowel sounds Neuro oriented x3 and CN's II-XII intact bilaterally Sensorium / Orientation: alert Skin no rashes or lesions noted MDM MDM MDM Narrative Medical decision making narrative: 27-year-old female with vaginal bleeding starting 1 hour ago. States with 1 pad. She had confirmed intrauterine previously. She does not know what her hCG quant was. Denies any abdominal pain. She has not lost fluid or passed clots. No passage of tissue.She does not need RhoGAM. CBC will be obtained to assess white blood cell count and hemoglobin. BMP to assess renal function and electrolytes. Serum hCG quantitative will be obtained as well as transvaginal ultrasound. CBC shows a normal white blood cell count of 7.3. Hemoglobin stable at 12.6. Platelets are normal at 202. hCG 54,000, 376. Urinalysis positive for occult blood which is likely contaminated.Obstetrics ultrasound was obtained which shows a live intrauterine at 13 weeks gestation. No other abnormalities are noted. heart tones 145. Will discuss patient with Dr. Lynne. Patient discharged stable condition. Impression: 1. Threatened miscarriage Lab Data Labs: Laboratory Results - last 24 hr 12/22/22 12/22/22 11:50 12:00 WBC 7.3 RBC 4.85 Hgb 12.6 Hct 38.9 MCV 80.2 L MCH 26.0 L MCHC 32.4 RDW Std Deviation 41.1 RDW Coeff of Leila 14.2 Plt Count 202 MPV 10.8 Immature Gran % (Auto) 1.000 H Neut % (Auto) 60.0 Lymph % (Auto) 29.4 Marin % (Auto) 6.8 Eos % (Auto) 2.3 Baso % (Auto) 0.5 Absolute Neuts (auto) 4.4 Absolute Lymphs (auto) 2.15 Nucleated RBC % 0 Sodium 135 L Potassium 3.3 L Chloride 106 Carbon Dioxide 20.0 L Anion Gap 9 BUN 5 L Creatinine 0.70 Estim Creat Clear Calc 128.44 Est GFR (MDRD) Af Amer 130 Est GFR (MDRD) Non-Af 108 BUN/Creatinine Ratio 7.1 L Glucose 90 Calcium 9.1 HCG, Quant 64537 H Urine Color Yellow Urine Clarity Sl. Cloudy Urine pH 5.0 Ur Specific [place] 1.025 Urine Protein 30 H Urine Glucose (UA) Normal Urine Ketones 15 H Urine Occult Blood 250 H Urine Nitrite Negative Urine Bilirubin Negative Urine Urobilinogen Normal Ur Leukocyte Esterase 25 H Urine RBC 25-50 SEEN Urine WBC 0-5 SEEN Ur Squamous Epith Cells 0-5 SEEN Urine Bacteria 1+ Urine Mucus 1+ Radiography Diagnostic Testing: Clinical Impression(s) from Imaging Studies Obstetrics Ultrasound 12/22/22 11:46 IMPRESSION: Single live intrauterine gestation with mean gestational age of 13 weeks. Electronically Signed: Martin Coker MD at 13:46 EDT , Discharge Plan Triage Chief Complaint: Vag Bld, Preg ED Provider: Eric Torres Dx/Rx/DC Orders Instructions: ED Possible Miscarriage ... Prescriptions: No Action PNV-DHA 27 mg iron-1 mg -300 mg capsule PO ondansetron 4 mg tablet,disintegrating 4 mg PO Q6H PRN (Reason: nausea and vomiting) Qty: 30 2RF Primary Care Provider: Care Physician,No Primary Referrals: Ashley Lynne MD [Med Staff - Active Staff] - 3-5 Days Care Physician,No Primary [Primary Care Provider] - Disposition Disposition: Home, Self Care
[2022-12-22 12:12] LABS: Color, Urine Yellow (Yellow); Glucose, Dipstick Normal (Normal); Ketone-Dipstick 15 mg/dl (Negative); Leukocyte Esterase-Dipstick 25 /ul (Negative); Nitrite-Dipstick Negative (Negative); Occult Blood-Urine 250 /ul (Negative); Protein-Dipstick 30 mg/dl (Negative); Specific Gravity, Urine 1.025 (1.002-1.030); Urine Bilirubin Dipstick Negative (Negative); Urine Clarity Sl. Cloudy (Clear); Urine Urobilinogen Normal (Normal)
[2022-12-22 12:20] LABS: Anion Gap 9 (5-15); BUN 5 mg/dL (7-18); BUN/Creat Ratio 7.1 RATIO (10-20); Calcium,Total 9.1 mg/dL (8.5-10.1); Chloride 106 mmol/L (98-107); EST Glomerular Filtration Rate 108 mL/min (>60); Est Glom Filt Rate - Afr Amer 130 mL/min (>60); Estimated Creatinine Clearance 128.44 ml/min; Glucose 90 mg/dL (74-106); Potassium 3.3 mmol/L (3.5-5.1); Sodium Level 135 mmol/L (136-145)
[2022-12-22 12:21] LABS: Bacteria 1+ /hpf (None Seen); Mucous, Urine 1+ /hpf (<or=2+); Red Blood Cells-Urine 25-50 SEEN /hpf (0-5); Squamous Epithelial Cells - UA 0-5 SEEN /hpf (5-10); White Blood Cells 0-5 SEEN /hpf (0-5)
[2022-12-22 13:58] VITALS: BP 105/76; PULSE 112; RESP 20
== END 2022-12-22 14:03 | disposition home or self-care (01) ==
PROVIDERS: Emergency Provider Student in an Organized Health Care Education/Training Program; Visit Provider Student in an Organized Health Care Education/Training Program
DX: O20.0 Threatened abortion (principal); Z3A.13 13 weeks gestation of pregnancy; Z90.49 Acquired absence of other specified parts of digestive tract
CPT/HCPCS: 76801; 80048; 81001; 84702; 85025; 99282

== ENCOUNTER → 2022-12-23 | Outpatient (CLI) | payer OTHER, SELFPAY ==
[2022-12-23 13:02] LABS: Absolute Lymphocyte Count 2.17 X10^3/uL (0.83-4.51); Absolute Neutrophil Count 4.4 X10^3/uL (2.0-7.7); Basophil# 0.05 X10^3/uL; Basophil% 0.7 % (0-1); Eosinophil# 0.09 X10^3/uL; Eosinophils% 1.2 % (0-5); Hematocrit 38.2 % (37-47); Lymphocyte # 2.17 X10^3/ul (0.83-4.51); Mean Corpuscular Hgb 26.9 pg (27.0-32.0); Mean Corpuscular Volume 78.9 fL (81-99); Mean Platelet Vol. 10.6 fl (6.2-12.0); Monocyte# 0.47 X10^3/uL; Monocyte% 6.5 % (0-10); NRBC Flagged by Analyzer 0 % (0-5); Neutrophil # 4.44 X10^3/uL (2.7-7.7); Neutrophil % 61.3 % (47-70); Platelet Count 213 K/mm3 (150-450); RBC Distribution Width CV 14.4 % (11.6-14.6); RBC Distribution Width SD 41.5 fl (35.1-43.9); Red Blood Count 4.84 M/mm3 (4.2-5.4); White Blood Count 7.2 K/mm3 (4.4-11.0)
[2022-12-23 13:58] LABS: NATERA MAILED SPECIMEN
[2022-12-23 14:11] LABS: HIV - WCH Non-Reactive (Nonreactive); Hepatitis B Surface Antigen Non-Reactive (Nonreactive); Hepatitis C Antibody Non-Reactive (Nonreactive); Rubella IgG Reactive (Nonreactive); Syphilis Antibodies Non-reactive
== END | disposition home or self-care (01) ==
PROVIDERS: Obstetrics & Gynecology; Referring Provider Obstetrics & Gynecology; Visit Provider Obstetrics & Gynecology
DX: Z34.81 Encounter for supervision of other normal pregnancy, first trimester (principal)
CPT/HCPCS: 36415; 85025; 86703; 86762; 86780; 86803; 86850; 86900; 86901; 87340

== ENCOUNTER → 2023-03-02 | Outpatient (CLI) | payer OTHER, SELFPAY ==
--- NOTE | 2023-03-02 16:01 | US_ITS ---
STUDY: SECOND AND THIRD TRIMESTER OBSTETRICAL ULTRASOUND - LIMITED REASON FOR EXAM: Female, 27 years old growth LMP: 09/28/2022 PRIOR ULTRASOUND: 12/22/2022 TECHNIQUE: Transabdominal TECHNICAL QUALITY: Adequate. FINDINGS: There is a single intrauterine fetus. The fetus is in a cephalic presentation. There is demonstrated cardiac activity with a heart rate of 153 bpm. There is a normal amniotic fluid volume. The largest amniotic fluid pocket measures 4.0 cm. The amniotic fluid index (WENDI) is 12.8 cm. The placenta is posterior in location and is not low lying. There are Grade 0 placental changes. The cervix measures 3.8 cm cm in length. BIOMETRY: BPD: 5.5 cm: 22 weeks, 4 days HC: 21.4 cm: 23 weeks, 3 days AC: 18.8 cm: 23 weeks, 4 days FL: 3.9 cm: 22 weeks, 3 days Age by LMP: 22 weeks, 1 days. JUSTIN by LMP: 07/05/2023. age by prior US: weeks, days. JUSTIN by prior US: . age by current US: 23 weeks, 0 days. JUSTIN by current US: 06/29/2023. Estimated weight: 559 grams, +/- 84 grams, 85 percentile. Gender: US/OB Limited With Biometrics IMPRESSION: Living intrauterine of 23 weeks 0 days as described above. Electronically Signed: Glenn Sutherland MD at 23:11 EST ,
== END | disposition home or self-care (01) ==
PROVIDERS: Visit Provider Obstetrics & Gynecology
DX: O43.119 Circumvallate placenta, unspecified trimester (principal); Z3A.00 Weeks of gestation of pregnancy not specified
CPT/HCPCS: 76816

== ENCOUNTER → 2023-03-22 | Outpatient (CLI) | payer OTHER, SELFPAY ==
--- OUTSIDE RECORDS SUMMARY | 2023-03-22 06:21 | XMS RPT_ITS | CCD ---
Author Name Unknown Address [address] [place] [id number] Organization [facility] Care Team Providers Care Chili Powder Mixer Name Role Phone None, No PCP Unavailable Unavailable Sustersic DO, Jaden Unavailable Unavailable Sustersic, Jaden V Unavailable Unavailable Required, No Pcp Unavailable Unavailable Jostin Miller Unavailable NO PRIMARY CARE, Primary Care Unavailable FRANK ARENAS Referring Unavailable AYO SIMS Attending Unavailable Allergies Allergy Classification Reported Allergen(s) Allergy Type Date of Onset Reaction(s) Facility Penicillins (antibiotic) (2 sources) Amoxicillin; Translations: [Penicillins] Drug Allergy [facility] Work Phone: Medications Completed/Discontinued Medications Medication Drug Class(es) Dates Sig (Normalized) Sig (Original) meloxicam 15 mg oral tablet (1 source) Nonsteroidal Anti-inflammatory Drug Start: 01-27-2016 Meloxicam 15 MG Oral Tablet Refills: 0 Start : 27-Jan-2016 Active Problems Active Problems Problem Classification Problem Date Documented Da te Episodic/Chronic Biliary tract disease (2 sources) Biliary colic; Translations: [Calculus of gallbladder without mention of cholecystitis, without mention of obstruction] 10-05-2021 Episodic Other bone disease and musculoskeletal deformities (1 source) Somatic dysfunction of rib; Translations: [Nonallopathic lesions, rib cage] Episodic Unclassified (2 sources) GALL BLADDER ATTACK 10-05-2021 Past or Other Problems Problem Classification Problem Date Documented Da te Episodic/Chronic NEGATED: Highlighted row has not occurred!Residual codes; unclassified (1 source) Disease Episodic Results Test Name Value Interpretation Reference Range Facil ity Vital Signs Date Time Vital Sign Value Performing Clinician Faci lity 10-05-2021 02:17-0400 Diastolic blood pressure 69 mm[Hg] No Pcp Required [facility] 10-05-2021 02:17-0400 Heart rate 84 /min No Pcp Required [facility] 10-05-2021 02:17-0400 Respiratory rate 16 /min No Pcp Required [facility] 10-05-2021 02:17-0400 SaO2% (BldA) [Mass fraction] 99 % No Pcp Required [facility] 10-05-2021 02:17-0400 Systolic blood pressure 92 mm[Hg] No Pcp Required [facility] Encounters Encounter Date Encounter Type Care Provider Facility Start: 02-02-2023 End: 02-02-2023 ambulatory MD NO PRIMARY CARE [facility] Start: 10-04-2021 End: 10-05-2021 Emergency department patient visit Jostin Miller [facility] Emergency 10 Immunizations Immunization Date Immunization Notes Care Provider Gian douglas 10-29-2009 diphtheria, tetanus toxoids and acellular pertussis vaccine Jaden Sustersic DO [facility] Work Phone: 10-29-2009 varicella virus vaccine Jaden Suster sic DO [facility] Work Phone: 11-07-2002 diphtheria, tetanus toxoids and acellular pertussis vaccine Jaden Sustersic DO [facility] Work Phone: 11-07-2002 measles, mumps and rubella virus vaccine Jaden Sustersic DO [facility] Work Phone: 11-07-2002 poliovirus vaccine, inactivated Jaden Sustersic DO [facility] Work Phone: 12-16-1999 varicella virus vaccine Jaden Suster sic DO [facility] Work Phone: 03-04-1999 DTaP-Haemophilus influenzae type b conjugate vaccine Jaden Sustersic DO [facility] Work Phone: 03-04-1999 measles, mumps and rubella virus vaccine Jaden Sustersic DO [facility] Work Phone: 03-04-1999 poliovirus vaccine, inactivated Jaden Sustersic DO -[facility] Work Phone: 12-03-1998 varicella virus vaccine Jaden Suster sic DO -[facility] Work Phone: 09-03-1998 hepatitis B vaccine, adult dosage Jaden Sustersic DO -[facility] Work Phone: 05-28-1998 DTaP-Haemophilus influenzae type b conjugate vaccine Jaden Sustersic DO -[facility] Work Phone: 04-05-1998 DTaP-Haemophilus influenzae type b conjugate vaccine Jaden Sustersic DO [facility] Work Phone: 03-26-1998 poliovirus vaccine, inactivated Jaden Sustersic DO [facility] Work Phone: 01-19-1998 DTaP-Haemophilus influenzae type b conjugate vaccine Jaden Sustersic DO [facility] Work Phone: 01-19-1998 hepatitis B vaccine, adult dosage Jaden Sustersic DO [facility] Work Phone: 01-19-1998 poliovirus vaccine, inactivated Jaden Sustersic DO [facility] Work Phone: Payers Date Payer Category Payer Unknown [id number] Unknown [facility] Unknown [id number] Social History Date Type Detail Facility Tobacco smoking consumption unknown [facility] NEGATED: Highlighted row - - [facility] Work Phone: Functional Status Date Assessment Result Facility NEGATED: Highlighted row Functional performance Functional status health issues are not documented Disease [facility] Work Phone: Mental Status Date Assessment Result Facility NEGATED: Highlighted row Cognitive function [Interpretation] Cognitive status health issues are not documented Disease [facility] Work Phone: Instructions Note Date & Type Note Facility [facility] Work Phone: Summary Purpose Family History No Family History Records Found Sibling Name Dates Details No pertinent family history( V49.89, Z78.9) Status:Active Advance Directives No Advanced Directives Records FoundNo Advanced Directives Records FoundNo Advanced Directives Records Found Additional Source Comments INFORMATION SOURCE (unrecogn ized section and content) DATE CREATED AUTHOR AUTHOR'S ORGANIZ ATION 10/09/2021 [facility] DATE CREATED AUTHOR AUTHOR'S ORGANIZ ATION 02/04/2023 [facility] <item> Privacy Markings (unrecogniz ed section and content) Section Author: Toma Ferrell PROHIBITION ON REDISCLOSURE OF CONFIDENTIAL INFORMATION This notice accompanies a disclosure of information concerning a client made to you with the consent of such client. FOR RECORDS PERTAINING TO PATIENTS WHO ARE OR HAVE BEEN ENROLLED IN A CHEMICAL DEPENDENCY/SUBSTANCEABUSE PROGRAM, SOME INFORMATION MAY BE OMITTED. This clinical summary was aggregated from multiple sources. Caution should be exercised in using it in the provision of clinical care. This summary normalizes information from multiple sources, and as a consequence, information in this document may materially change the coding, format and clinical context of patient data. In addition, data may be omitted in some cases. CLINICAL DECISIONS SHOULD BE BASED ON THE PRIMARY CLINICAL RECORDS. [facility]. provides no warranty or guarantee of the accuracy or completeness of information in this document.
[2023-03-22 06:42] LABS: Absolute Lymphocyte Count 3.54 X10^3/uL (0.83-4.51); Absolute Neutrophil Count 6.6 X10^3/uL (2.0-7.7); Basophil# 0.08 X10^3/uL; Basophil% 0.7 % (0-1); Eosinophil# 0.22 X10^3/uL; Eosinophils% 1.9 % (0-5); Hematocrit 32.8 % (37-47); Hemoglobin 10.3 g/dL (12.0-15.0); Lymphocyte # 3.54 X10^3/ul (0.83-4.51); Lymphocyte % 31.3 % (19-41); Mean Corp Hgb Conc 31.4 g/dL (32-36); Mean Corpuscular Hgb 25.1 pg (27.0-32.0); Mean Platelet Vol. 11.1 fl (6.2-12.0); Monocyte% 6.2 % (0-10); NRBC Flagged by Analyzer 0 % (0-5); Neutrophil # 6.63 X10^3/uL (2.7-7.7); Neutrophil % 58.6 % (47-70); Platelet Count 183 K/mm3 (150-450); RBC Distribution Width SD 40.2 fl (35.1-43.9); White Blood Count 11.3 K/mm3 (4.4-11.0)
[2023-03-22 07:17] LABS: Glucose GTT-Gestation. Fasting 93 mg/dL (<105)
[2023-03-22 08:45] LABS: HIV - WCH Non-Reactive (Nonreactive); Syphilis Antibodies Non-reactive
== END | disposition home or self-care (01) ==
LOC: LAB 06:11
PROVIDERS: Referring Provider Obstetrics & Gynecology; Visit Provider Obstetrics & Gynecology
DX: O09.90 Supervision of high risk pregnancy, unspecified, unspecified trimester (principal); Z13.1 Encounter for screening for diabetes mellitus; Z3A.00 Weeks of gestation of pregnancy not specified
CPT/HCPCS: 36415; 82951; 82952; 85025; 86703; 86780

== ENCOUNTER → 2023-03-30 | Outpatient (CLI) | payer OTHER, SELFPAY ==
--- NOTE | 2023-03-30 16:07 | US_ITS ---
EXAM: US , LIMITED CLINICAL INDICATION: growth TECHNIQUE: Real-time limited ultrasound of the maternal uterus with image documentation. COMPARISON: US Limited dated 12/22/2022 03/04/2023 FINDINGS: GESTATIONAL AGE: Estimated gestational age by measurements is 27 weeks 1 day. Clinical gestational age is 26 weeks 1 day. JUSTIN: Clinical JUSTIN is July 05, 2023. EFW: Estimated weight is 948 g. Normal interval growth. BPD: Biparietal diameter is 6.4 cm. HC: Head circumference is 25.7 cm. AC: Abdominal circumference is 22.5 cm. FL: Femur length is 4.8 cm. POSITION: Single fetus in cephalic presentation. HEART RATE: cardiac rate is 140 bpm. PLACENTA: Posterior placenta. AMNIOTIC FLUID: Amniotic fluid index is normal measuring 11.3 cm. CERVIX: Cervix measures 4 cm in length and appears closed. US/OB Limited With Biometrics IMPRESSION: Single live intrauterine gestation with normal interval growth. Electronically Signed: Mack Tellez MD at 16:51 EST ,
--- OUTSIDE RECORDS SUMMARY | 2023-03-30 16:27 | XMS RPT_ITS | CCD ---
Author Name Unknown Address [address] [place] [address] Organization [facility] Care Team Providers Care Design Inserter Name Role Phone None, No PCP Unavailable Unavailable Sustersic DO, Jaden Unavailable Unavailable Sustersic, Jaden V Unavailable Unavailable Required, No Pcp Unavailable Unavailable Jostin Miller Unavailable NO PRIMARY CARE, Primary Care Unavailable [facility] Referring Unavailable AYO SIMS Attending Unavailable Allergies Allergy Classification Reported Allergen(s) Allergy Type Date of Onset Reaction(s) Facility Penicillins (antibiotic) (2 sources) Amoxicillin; Translations: [Penicillins] Drug Allergy [facility] Work Phone: Medications Completed/Discontinued Medications [...] blood pressure 69 mm[Hg] No Pcp Required [facility] 10-05-2021 02:17-0400 Heart rate 84 /min No Pcp Required [facility] 10-05-2021 02:17-0400 Respiratory rate 16 /min No Pcp Required [facility] 10-05-2021 02:17-0400 SaO2% (BldA) [Mass fraction] 99 % No Pcp Required [facility] 10-05-2021 02:17-0400 Systolic blood pressure 92 mm[Hg] No Pcp Required [facility] Encounters Encounter Date Encounter Type Care Provider Facility Start: 02-02-2023 End: 02-02-2023 ambulatory MD NO PRIMARY CARE [facility] Start: 10-04-2021 End: 10-05-2021 Emergency department patient visit Jostin Miller [facility] Emergency 10 Immunizations Immunization Date Immunization Notes Care Provider Gian douglas 10-29-2009 diphtheria, tetanus toxoids and acellular pertussis vaccine Jaden Sustersic DO [facility] Work Phone: 10-29-2009 varicella virus vaccine Jaden Suster sic DO [facility] Work Phone: 11-07-2002 diphtheria, tetanus toxoids and acellular pertussis vaccine Jaden Sustersic DO [facility] Work Phone: 11-07-2002 measles, mumps and rubella virus vaccine Jaden Sustersic DO [facility] Work Phone: 11-07-2002 poliovirus vaccine, inactivated Jaden Sustersic DO [facility] Work Phone: 12-16-1999 varicella virus vaccine Jaden Suster sic DO [facility] Work Phone: 03-04-1999 DTaP-Haemophilus influenzae type b conjugate vaccine Jaden Sustersic DO [facility] Work Phone: 03-04-1999 measles, mumps and rubella virus vaccine Jaden Sustersic DO [facility] Work Phone: 03-04-1999 poliovirus vaccine, inactivated Jaden Sustersic DO -[facility] Work Phone: 12-03-1998 varicella virus vaccine Jaden Suster sic DO -[facility] Work Phone: 09-03-1998 hepatitis B vaccine, adult dosage Jaden Sustersic DO -[facility] Work Phone: 05-28-1998 DTaP-Haemophilus influenzae type b conjugate vaccine Jaden Sustersic DO -[facility] Work Phone: 04-05-1998 DTaP-Haemophilus influenzae type b conjugate vaccine Jaden Sustersic DO [facility] Work Phone: 03-26-1998 poliovirus vaccine, inactivated Jaden Sustersic DO [facility] Work Phone: 01-19-1998 DTaP-Haemophilus influenzae type b conjugate vaccine Jaden Sustersic DO [facility] Work Phone: 01-19-1998 hepatitis B vaccine, adult dosage Jaden Sustersic DO [facility] Work Phone: 01-19-1998 poliovirus vaccine, inactivated Jaden Sustersic DO [facility] Work Phone: Payers Date Payer Category Payer Unknown [id number] Unknown ANTHEM\ANTHEM [facility] Unknown [id number] Social History Date Type Detail Facility Tobacco smoking consumption unknown [facility] NEGATED: Highlighted row - - [facility] Work Phone: Functional Status Date Assessment Result Facility NEGATED: Highlighted row Functional performance Functional status health issues are not documented [facility] Work Phone: Mental Status Date Assessment Result Facility NEGATED: Highlighted row Cognitive function [Interpretation] Cognitive status health issues are not documented Disease [facility] Work Phone: Instructions Note Date & Type Note Facility [facility] Work Phone: Summary Purpose Family History No Family History Records Found Sibling Name Dates Details No pertinent family history( V49.89, Z78.9) Status:Active Advance Directives No Advanced Directives Records FoundNo Advanced Directives Records FoundNo Advanced Directives Records Found Additional Source Comments INFORMATION SOURCE (unrecogn ized section and content) DATE CREATED AUTHOR AUTHOR'S ORGANIZ ATION 10/09/2021 [facility] DATE CREATED AUTHOR AUTHOR'S ORGANIZ ATION 02/04/2023 [facility] <item> Privacy Markings (unrecogniz ed section and [...] BE BASED ON THE PRIMARY CLINICAL RECORDS. [employer] [facility]. provides no warranty or guarantee of the accuracy or completeness of information in this document.
== END | disposition home or self-care (01) ==
LOC: US 16:07
PROVIDERS: Referring Provider Obstetrics & Gynecology; Visit Provider Obstetrics & Gynecology
DX: O43.119 Circumvallate placenta, unspecified trimester (principal); Z3A.00 Weeks of gestation of pregnancy not specified
CPT/HCPCS: 76816

== ENCOUNTER → 2023-04-09 | Outpatient (CLI) | payer OTHER, SELFPAY ==
--- OUTSIDE RECORDS SUMMARY | 2023-04-09 08:19 | XMS RPT_ITS | CCD ---
Author Name Unknown Address [address] [place] [address] Organization [facility] Care Team Providers Care Research Laboratory Specialist Name Role Phone None, No PCP Unavailable Unavailable Sustersic DO, Jaden Unavailable Unavailable Sustersic, Jaden V Unavailable Unavailable Required, No Pcp Unavailable Unavailable Jostin Miller Unavailable NO PRIMARY CARE, Primary Care Unavailable [facility] Referring Unavailable AYO SIMS Attending Unavailable Allergies Allergy Classification Reported Allergen(s) Allergy Type Date of Onset Reaction(s) Facility Penicillins (antibiotic) (2 sources) Amoxicillin; Translations: [Penicillins] Drug Allergy [facility] Work Phone: Medications Completed/Discontinued Medications Medication Drug [...] blood pressure 69 mm[Hg] No Pcp Required [facility] 10-05-2021 02:17-0400 Heart rate 84 /min No Pcp Required [facility] 10-05-2021 02:17-0400 Respiratory rate 16 /min No Pcp Required [facility] 10-05-2021 02:17-0400 SaO2% (BldA) [Mass fraction] 99 % No Pcp Required [facility] 10-05-2021 02:17-0400 Systolic blood pressure 92 mm[Hg] No Pcp Required [facility] Encounters Encounter Date Encounter Type Care Provider Facility Start: 02-02-2023 End: 02-02-2023 ambulatory MD NO PRIMARY CARE [facility] Start: 10-04-2021 End: 10-05-2021 Emergency department patient visit Jostin Miller [facility] Emergency 10 Immunizations Immunization Date Immunization Notes Care Provider Gian douglas 10-29-2009 diphtheria, tetanus toxoids and acellular pertussis vaccine Jaden Sustersic DO [facility] Work Phone: 10-29-2009 varicella virus vaccine Jaden Suster sic DO [facility] Work Phone: 11-07-2002 diphtheria, tetanus toxoids and acellular pertussis vaccine Jaden Sustersic DO [facility] Work Phone: 11-07-2002 measles, mumps and rubella virus vaccine Jaden Sustersic DO [facility] Work Phone: 11-07-2002 poliovirus vaccine, inactivated Jaden Sustersic DO [facility] Work Phone: 12-16-1999 varicella virus vaccine Jaden Suster sic DO [facility] Work Phone: 03-04-1999 DTaP-Haemophilus influenzae type b conjugate vaccine Jaden Sustersic DO [facility] Work Phone: 03-04-1999 measles, mumps and rubella virus vaccine Jaden Sustersic DO [facility] Work Phone: 03-04-1999 poliovirus vaccine, inactivated Jaden Sustersic DO -[facility] Work Phone: 12-03-1998 varicella virus vaccine Jaden Suster sic DO -[facility] Work Phone: 09-03-1998 hepatitis B vaccine, adult dosage Jaden Sustersic DO -[facility] Work Phone: 05-28-1998 DTaP-Haemophilus influenzae type b conjugate vaccine Jaden Sustersic DO -[facility] Work Phone: 04-05-1998 DTaP-Haemophilus influenzae type b conjugate vaccine Jaden Sustersic DO [facility] Work Phone: 03-26-1998 poliovirus vaccine, inactivated Jaden Sustersic DO [facility] Work Phone: 01-19-1998 DTaP-Haemophilus influenzae type b conjugate vaccine Jaden Sustersic DO [facility] Work Phone: 01-19-1998 hepatitis B vaccine, adult dosage Jaden Sustersic DO [facility] Work Phone: 01-19-1998 poliovirus vaccine, inactivated Jaden Sustersic DO [facility] Work Phone: Payers Date Payer Category Payer Unknown [id number] Unknown ANTHEM\ANTHEM [facility] Unknown [id number] Social History Date Type Detail Facility Tobacco smoking consumption unknown [facility] NEGATED: Highlighted row - - [facility] Work Phone: Functional Status Date Assessment Result Facility NEGATED: Highlighted row Functional performance Functional status health issues are not documented Disease [facility] Work Phone: Mental Status Date Assessment Result Facility NEGATED: Highlighted row Cognitive function [Interpretation] Cognitive status health issues are not documented Disease [facility] Work Phone: Instructions Note Date & Type Note Facility [facility] Work Phone: Summary Purpose Family History No Family History Records Found Sibling Name Dates Details No pertinent family history( V49.89, Z78.9) Status:Active Advance Directives No Advanced Directives Records FoundNo Advanced Directives Records FoundNo Advanced Directives Records Found Additional Source Comments INFORMATION SOURCE (unrecogn ized section and content) DATE CREATED AUTHOR AUTHOR'S ORGANIZ ATION 10/09/2021 [facility] DATE CREATED AUTHOR AUTHOR'S ORGANIZ ATION 02/04/2023 [facility] <item> Privacy Markings (unrecogniz ed section [...] BE BASED ON THE PRIMARY CLINICAL RECORDS. [employer] [facility]. provides no warranty or guarantee of the accuracy or completeness of information in this document.
[2023-04-09 09:44] LABS: Glucose Challenge Gest 1H 50g 188 mg/dL (70-140)
== END | disposition home or self-care (01) ==
PROVIDERS: Obstetrics & Gynecology; Referring Provider Obstetrics & Gynecology; Visit Provider Obstetrics & Gynecology
DX: Z13.1 Encounter for screening for diabetes mellitus (principal)
CPT/HCPCS: 36415; 82950

== ENCOUNTER → 2023-04-27 | Outpatient (CLI) | payer OTHER, SELFPAY ==
--- NOTE | 2023-04-27 16:02 | US_ITS ---
STUDY: SECOND AND THIRD TRIMESTER OBSTETRICAL ULTRASOUND - LIMITED REASON FOR EXAM: Female, 27 years old growth history of circumvallate placenta. LMP: September 28, 2022 PRIOR ULTRASOUND: None. TECHNIQUE: Transabdominal TECHNICAL QUALITY: Adequate. FINDINGS: There is a single intrauterine fetus. The fetus is in a cephalic presentation. There is demonstrated cardiac activity with a heart rate of bpm. There is a normal amniotic fluid volume. The largest amniotic fluid pocket measures 2.4 cm. The amniotic fluid index (WENDI) is 13.2 cm. The placenta is posterior in location and is not low lying. There are Grade 1 placental changes. The cervix measures 4.6 cm in length. BIOMETRY: BPD: 7.8 cm: 31 weeks, 1 days HC: 29.8 cm: 33 weeks, 0 days AC: 26.3 cm: 30 weeks, 3 days FL: 5.4 cm: 30 weeks, 4 days Age by LMP: 30 weeks, 1 days. JUSTIN by LMP: July 05, 2023. Estimated weight: 1614 grams, +/- 242 grams, 55 percentile. US/OB Limited With Biometrics IMPRESSION: 30 week 3 day intrauterine Electronically Signed: Beau Barnett MD at 22:56 EST ,
== END | disposition home or self-care (01) ==
LOC: OPUS 16:00
PROVIDERS: Referring Provider Obstetrics & Gynecology; Visit Provider Obstetrics & Gynecology
DX: O43.119 Circumvallate placenta, unspecified trimester (principal); Z3A.00 Weeks of gestation of pregnancy not specified
CPT/HCPCS: 76816

== ENCOUNTER → 2023-05-25 | Outpatient (CLI) | payer OTHER, SELFPAY ==
--- NOTE | 2023-05-25 16:53 | US_ITS ---
STUDY: SECOND AND THIRD TRIMESTER OBSTETRICAL ULTRASOUND - LIMITED REASON FOR EXAM: Female, 27 years old, evaluate growth LMP: 09/28/2022 PRIOR ULTRASOUND: Prior study dated: 04/27/2023 TECHNIQUE: Transabdominal TECHNICAL QUALITY: Adequate. FINDINGS: There is a single intrauterine fetus. The fetus is in a cephalic presentation. There is demonstrated cardiac activity with a heart rate of 144 bpm. There is a normal amniotic fluid volume. The largest amniotic fluid pocket measures 3.5 cm. The amniotic fluid index (WENDI) is 10.2 cm. The placenta is posterior in location and is not low lying. There are Grade 1 placental changes. The cervix measures 4.3 cm in length. BIOMETRY: BPD: 8.4 cm: 33 weeks, 5 days HC: 31.8 cm: 35 weeks, 5 days AC: 31.1 cm: 35 weeks, 0 days FL: 6.6 cm: 34 weeks, 1 days Age by LMP: 34 weeks, 1 days. JUSTIN by LMP: 07/05/2023. age by prior US: 35 weeks, 3 days. JUSTIN by prior US: 06/26/2023. age by current US: 35 weeks, 1 days. JUSTIN by current US: 06/28/2023. Estimated weight: 2481 grams, +/- 372 grams, 59 percentile. US/OB Limited With Biometrics IMPRESSION: Single live intrauterine fetus in cephalic presentation with an estimated gestational age of 35 weeks and 1 day. The JUSTIN is 06/28/2023. Electronically Signed: Gregory Brown MD at 9:09 EST ,
--- OUTSIDE RECORDS SUMMARY | 2023-05-25 21:03 | XMS RPT_ITS | CCD ---
Author Name Unknown Address [address] [place] [id number] Organization [facility] Care Team Providers Care Scada Technician Name Role Phone None, No PCP Unavailable Unavailable Sustersic DO, Jaden Unavailable Unavailable Sustersic, Jaden V Unavailable Unavailable Required, No Pcp Unavailable Unavailable Jostin Miller Unavailable NO PRIMARY CARE, Primary Care Unavailable [facility] Referring Unavailable AYO SIMS Attending Unavailable Allergies Allergy Classification Reported Allergen(s) Allergy Type Date of Onset Reaction(s) Facility Penicillins (antibiotic) (2 sources) Amoxicillin; Translations: [Penicillins] Drug Allergy [facility] Work Phone: Medications Completed/Discontinued Medications Medication Drug [...] blood pressure 69 mm[Hg] No Pcp Required [facility] 10-05-2021 02:17-0400 Heart rate 84 /min No Pcp Required [facility] 10-05-2021 02:17-0400 Respiratory rate 16 /min No Pcp Required [facility] 10-05-2021 02:17-0400 SaO2% (BldA) [Mass fraction] 99 % No Pcp Required [facility] 10-05-2021 02:17-0400 Systolic blood pressure 92 mm[Hg] No Pcp Required [facility] Encounters Encounter Date Encounter Type Care Provider Facility Start: 02-02-2023 End: 02-02-2023 ambulatory MD NO PRIMARY CARE [facility] Start: 10-04-2021 End: 10-05-2021 Emergency department patient visit Jostin Miller [facility] Emergency 10 Immunizations Immunization Date Immunization Notes Care Provider Gian douglas 10-29-2009 diphtheria, tetanus toxoids and acellular pertussis vaccine Jaden Sustersic DO [facility] Work Phone: 10-29-2009 varicella virus vaccine Jaden Suster sic DO [facility] Work Phone: 11-07-2002 diphtheria, tetanus toxoids and acellular pertussis vaccine Jaden Sustersic DO [facility] Work Phone: 11-07-2002 measles, mumps and rubella virus vaccine Jaden Sustersic DO [facility] Work Phone: 11-07-2002 poliovirus vaccine, inactivated Jaden Sustersic DO [facility] Work Phone: 12-16-1999 varicella virus vaccine Jaden Suster sic DO [facility] Work Phone: 03-04-1999 DTaP-Haemophilus influenzae type b conjugate vaccine Jaden Sustersic DO [facility] Work Phone: 03-04-1999 measles, mumps and rubella virus vaccine Jaden Sustersic DO [facility] Work Phone: 03-04-1999 poliovirus vaccine, inactivated Jaden Sustersic DO -[facility] Work Phone: 12-03-1998 varicella virus vaccine Jaden Suster sic DO -[facility] Work Phone: 09-03-1998 hepatitis B vaccine, adult dosage Jaden Sustersic DO -[facility] Work Phone: 05-28-1998 DTaP-Haemophilus influenzae type b conjugate vaccine Jaden Sustersic DO -[facility] Work Phone: 04-05-1998 DTaP-Haemophilus influenzae type b conjugate vaccine Jaden Sustersic DO [facility] Work Phone: 03-26-1998 poliovirus vaccine, inactivated Jaden Sustersic DO [facility] Work Phone: 01-19-1998 DTaP-Haemophilus influenzae type b conjugate vaccine Jaden Sustersic DO [facility] Work Phone: 01-19-1998 hepatitis B vaccine, adult dosage Jaden Sustersic DO [facility] Work Phone: 01-19-1998 poliovirus vaccine, inactivated Jaden Sustersic DO [facility] Work Phone: Payers Date Payer Category Payer Unknown [id number] Unknown ANTHEM\ANTHEM [facility] Unknown [id number] Social History Date Type Detail Facility Tobacco smoking consumption unknown [facility] NEGATED: Highlighted row - - [facility] Work Phone: Functional Status Date Assessment Result Facility NEGATED: Highlighted row Functional performance Functional status health issues are not documented [facility] Work Phone: Mental Status Date Assessment Result Facility NEGATED: Highlighted row Cognitive function [Interpretation] Cognitive status health issues are not documented Disease [facility] Work Phone: Instructions Note Date & Type Note Facility [facility] Work Phone: Summary Purpose Family History No [...] DATE CREATED AUTHOR AUTHOR'S ORGANIZ ATION 02/04/2023 [facility] <item> Privacy Markings (unrecogniz ed section and [...] BE BASED ON THE PRIMARY CLINICAL RECORDS. [email or web address] [facility]. provides no warranty or guarantee of the accuracy or completeness of information in this document.
== END | disposition home or self-care (01) ==
LOC: US 16:52
PROVIDERS: Referring Provider Obstetrics & Gynecology; Visit Provider Obstetrics & Gynecology
DX: O43.119 Circumvallate placenta, unspecified trimester (principal); Z3A.00 Weeks of gestation of pregnancy not specified
CPT/HCPCS: 76816

== ENCOUNTER 2023-06-08 17:30 | Outpatient (CLI) | payer OTHER, SELFPAY ==
[2023-06-08 17:42] VITALS: BP 114/77; PULSE 93; RESP 18
[2023-06-08 17:48] VITALS: BMI 32.1
[2023-06-08] MEDS: Lactated Ringers 1,000 ML 999 ML IV (18:21)
[2023-06-08 18:29] LABS: Hematocrit 31.1 % (37-47); Hemoglobin 9.3 g/dL (12.0-15.0); Mean Corp Hgb Conc 29.9 g/dL (32-36); Mean Corpuscular Hgb 21.9 pg (27.0-32.0); Mean Corpuscular Volume 73.3 fL (81-99); Mean Platelet Vol. 11.5 fl (6.2-12.0); Platelet Count 163 K/mm3 (150-450); RBC Distribution Width CV 16.4 % (11.6-14.6); RBC Distribution Width SD 42.6 fl (35.1-43.9); Red Blood Count 4.24 M/mm3 (4.2-5.4); White Blood Count 6.6 K/mm3 (4.4-11.0)
[2023-06-08 18:45] LABS: LDH 206 U/L (84-246)
[2023-06-08 18:51] LABS: AST(SGOT) 18 U/L (15-37); Alanine Aminotransfer ALT/SGPT 14 U/L (13-56); Creatinine, Serum 0.76 mg/dL (0.55-1.02); EST Glomerular Filtration Rate 98 mL/min (>60); Est Glom Filt Rate - Afr Amer 119 mL/min (>60); Estimated Creatinine Clearance 100.31 ml/min; Uric Acid 6.6 mg/dL (2.6-6.0)
[2023-06-08 20:14] VITALS: BP 113/75; PULSE 96; O2SAT 100
[2023-06-08 22:15] LABS: Protein, Urine (Random) 14.9 mg/dL (<11.9); Protein:Creat Ratio 243 mg/g CRE (0-200)
--- NOTE | 2023-06-20 17:43 | OB.TRI.HP_ITS ---
HPI - General General Date of Admission: 06/08/23 HPI Narrative JOEL ELIAS, is a 27 y/o @35 weeks who presents to L&D with contractions. No lof, vaginal bleeding, or dec fm. Maternal Data Information JUSTIN Calculator Estimated Delivery Date Method Current WG Current Estimate 07/05/23 LMP (Certain) 37w 6d PFSH PFSH Medical History delivery delivered Cholelithiasis Gestational hypertension without significant proteinuria, affecting puerperium Postoperative anemia Home Medications multivitamin no.47-iron fum 27 mg-folate no.1 1 mg-dha 300 mg capsule (PNV-DHA) cap PO DAILY 11/19/22 [History Last Taken Unknown] ondansetron 4 mg disintegrating tablet 4 mg PO Q6H PRN nausea and vomiting #30 tabs 02/21/23 [Rx Last Taken 06/07/23] blood sugar diagnostic (Blood Glucose Test strips) #120 ea 04/11/23 [Rx Last Taken Unknown] blood-glucose meter #1 ea 04/11/23 [Rx Last Taken Unknown] lancets #200 ea 04/11/23 [Rx Last Taken Unknown] Allergy/AdvReac Type Severity Reaction Status Date / Time amoxicillin Allergy Hives Verified 06/08/23 20:25 Penicillins [PCN] Allergy Other Verified 06/08/23 20:25 Family History Aunt Breast cancer, Onset Age: 56 Maternal Uterine cancer Maternal Surgical History Delivery by section No history of previous surgery S/P laparoscopic cholecystectomy Social History adopted: No household members: spouse and children number of children: 1 current occupational status: employed 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 pets and animals: Yes pets and animals: dog(s) history of recent travel: No sexually active: Yes Smoking Status: Never smoker alcohol intake: never substance use type: does not use well-balanced diet: daily or most days caffeine: No eating out: 1-3 times/week during the past year weight has: increased > 10 lbs what type of physical activity do you participate in: walking frequency: 1-2 times per week duration: 15-30 minutes/day shital/taoism: Holiness seatbelt use: always do you feel safe at home: Yes additional social history: Main [place] History 2 Elective abortions Hx Para 1 Spontaneous abortions Hx # Term Pregnancies Ectopic pregnancies Hx # Pregnancies Multiple births # of living children 1 Past Pregnancies Del. Date Name GA/Weeks Outcome Route Bth Weight Infant Gen Labor Lgth Anesthesia Del Locatn Provider FOB 09/16/21 Catarino 39 live - full term 8#0oz Male 1 9 epidural [facility] Chapito Quach Delivery Date: 09/16/21 Last Updated by: Makenna Holman IOL, large baby- c section decels Visit Details Expected Delivery Route/Plan plan RLTCS considering . Plans Covid status: declined Flu vaccine: declined Tdap vaccine: given Rhogam: na LARC form signed: declined movement and labor precautions reviewed. Problem list reviewed and updated with the most current plan of care details and appropriate orders placed. Relevant counseling for the gestational age provided. Continue routine care and follow up unless otherwise noted in visit notes/problem list details OB Flowsheet Initial Weight: 149 lb Date -?-?-?-?-?-?-?-?-?-?-?-?- EGA Weight BP Urine Prot -?-?-?-?-?-?-?-?-?-?-?-?- Glucose FHR FuHt Pres Dilation -?-?-?-?-?-?-?-?-?-?-?-?- Effaced St Visit Note 11/30/22 -?-?-?-?-?-?-?-?-?-?-?-?- 9w 0d 149 lb (+0 oz) 124/85 -?-?-?-?-?-?-?-?-?-?-?-?- 171 -?-?-?-?-?-?-?-?-?-?-?-?- KW-CRL 27.7mm co ns with LMP 12/23/22 -?-?-?-?-?-?-?-?-?-?-?-?- 12w 2d 149 lb (+0 oz) 142 lb 4 oz (-6 lb 12 oz) 112/80 Trace -?-?-?-?-?-?-?-?-?-?-?-?- Negative 160 -?-?-?-?-?-?-?-?-?-?-?-?- SM- had vb episo de seen in er no obvious cause rh positive labs today 12/31/22 -?-?-?-?-?-?-?-?-?-?-?-?- 13w 3d 146 lb 4 oz (-2 lb 12 oz) 127/87 Negative -?-?-?-?-?-?-?-?-?-?-?-?- Negative 160 -?-?-?-?-?-?-?-?-?-?-?-?- KW-no vb/jiemnez g. still having N/V. 01/12/23 -?-?-?-?-?-?-?-?-?-?-?-?- 15w 1d 147 lb 2 oz (-1 lb 14 oz) 112/82 Negative -?-?-?-?-?-?-?-?-?-?-?-?- Negative 149 -?-?-?-?-?-?-?-?-?-?-?-?- MH-No VB. Nausea persists but improved, no longer vomiting. Weight gain noted. Denies other concerns 01/26/23 -?-?-?-?-?-?-?-?-?-?-?-?- 17w 1d 150 lb 6 oz (+1 lb 6 oz) 114/70 Negative -?-?-?-?-?-?-?-?-?-?-?-?- Negative 143 -?-?-?-?-?-?-?-?-?-?-?-?- MH-No VB. Some n oted flutters. Nausea persists. Denies other concerns 02/25/23 -?-?-?-?-?-?-?-?-?-?-?-?- 21w 3d 149 lb 6 oz (+6 oz) 130/92 Negative -?-?-?-?-?-?-?-?-?-?-?-?- Negative 140 -?-?-?-?-?-?-?-?-?-?-?-?- SM- no vb lof g ood fm no regular ctx 03/22/23 -?-?-?-?-?-?-?-?-?-?-?-?- 25w 0d 154 lb (+5 lb) 121/77 Negative -?-?-?-?-?-?-?-?-?-?-?-?- Negative 140 28 -?-?-?-?-?-?--?-?-?-?-?-?- KW-no vb.lof.ctx . good fm. Attempted to do 3 hour GCT (due to failing 1 hour last preg) but vomited after drinking. will attempt to do 1 hour GCT with fresh test. 04/13/23 -?-?-?-?-?-?-?-?-?-?-?-?- 28w 1d 156 lb 4 oz (+7 lb 4 oz) 114/80 Negative -?-?-?-?-?-?-?-?-?-?-?-?- Negative 145 30 -?-?-?-?-?-?-?-?-?-?-?-?- JV- no lof, vagi nal bleeding, or dec fm. no complaints. is newly diagnosed with GDM and trying to get insurance to cover her glucometer. Has appt with nutrition coming up. 04/28/23 -?-?-?-?-?-?-?-?-?-?-?-?- 30w 2d 157 lb (+8 lb) 116/81 Negative -?-?-?-?-?-?-?-?-?-?-?-?- Negative 145 32 -?-?-?-?-?-?-?-?-?-?-?-?- SM- no vb lof go od fm no regular ctx larc signed tdap given SM- no vb lof good fm no reg ular ctx larc signed tdap given BS reviewed 05/11/23 -?-?-?-?-?-?-?-?-?-?-?-?- 32w 1d 161 lb 2 oz (+12 lb 2 oz) 119/83 Negative -?-?-?-?-?-?-?-?-?-?-?-?- Negative 140 34 -?-?-?-?-?-?-?-?-?-?-?-?- JV- glucose log normal (had one fasting that was over 95) no lof, vaginal bleeding, or dec fm. rpt cs is scheduled. JV- c/o tail bone pain. ac dies discussed glucose log normal (had one fasting that was over 95) no lof, vaginal bleeding, or dec fm. rpt cs is scheduled. 05/25/23 -?-?-?-?-?-?-?-?-?-?-?-?- 34w 1d 165 lb (+16 lb) 131/82 Negative -?-?-?-?-?-?-?-?-?-?-?-?- Negative 145 35 -?-?-?-?-?-?-?-?-?-?-?-?- JV- tailbone rob n is worse. recommend chiropractor. may also perform x-ray if becomes more severe. glucose levels normal. having pressure but no lof, vaginal bleeding, or dec fm. 06/08/23 -?-?-?-?-?-?-?-?-?-?-?-?- 36w 1d 160 lb 2 oz (+11 lb 2 oz) 116/83 Positive -?-?-?-?-?-?-?-?-?-?-?-?- Negative 115 36 -?-?-?-?-?-?-?-?-?-?-?-?- LC- no vb/consis tent ctx/lof. good fm. HR baseline low, sick x3 days NSt non reactive- sent to for IV hydration and prolonged monitoring. 06/17/23 -?-?-?-?-?-?-?-?-?-?-?-?- 37w 3d 167 lb 2 oz (+18 lb 2 oz) 131/84 Negative -?-?-?-?-?-?-?-?-?-?-?-?- Negative 145 38 -?-?-?-?-?-?-?-?-?-?-?-?- KW- no vb/crampi ng/lof. good fm. HBG lower today. iron studies pending. ROS Constitutional Constitutional: Reports systems reviewed and no addt'l complaints, except as documented Gastrointestinal Gastrointestinal: Denies bloating, constipation, cramping, diarrhea, nausea or vomiting Genitourinary Genitourinary: Reports other Details: Denies vaginal odor, vaginal bleeding, or vaginal discharge ; Denies difficulty urinating or flank pain NST FHR Rate Baby A Baseline: 140 Variability:: Moderate Accelerations:: 15 x 15 Decelerations:: None NST Reactive:: Yes FHR Category:: Category I Assessment & Plan (1) Gestational diabetes: COMMENT: test BS fasting & 2 HR PP (2) Anemia affecting : COMMENT: CBC in one month (3) Circumvallate placenta: COMMENT: growth US q 4 weeks 59% at 35 weeks (4) delivery delivered: COMMENT: desires R C/S, RLTCS 06/28/23 @ 12 (5) : QUALIFIERS: Weeks of gestation: 37 weeks Qualified Code(s): Z3A.37 - 37 weeks gestation of COMMENT: GBs neg,NIPT LR, declined ntd & carrier testing. anatomy reviewed (6) Supervision of high-risk : QUALIFIERS: Trimester: second trimester Qualified Code(s): O09.92 - Supervision of high risk , unspecified, second trimester COMMENT: PRR , JUSTIN 07/05/23, girl PC Catarino, Main (7) False labor: PLAN: no cervical change and patient feels comfortable to go home. Charges/Coding Multi Select Codes Urinary/Genital Urinary/Genital CPT Codes: 20401-98 non-stress test Interp
== END 2023-06-08 21:25 | disposition home or self-care (01) ==
LOC: WPOUT 17:35 → WP 17:36
PROVIDERS: Registered Nurse; Referring Provider Obstetrics & Gynecology; Visit Provider Obstetrics & Gynecology
DX: O47.03 False labor before 37 completed weeks of gestation, third trimester (principal); Z3A.35 35 weeks gestation of pregnancy; Z90.49 Acquired absence of other specified parts of digestive tract; O24.419 Gestational diabetes mellitus in pregnancy, unspecified control; O99.013 Anemia complicating pregnancy, third trimester; O43.113 Circumvallate placenta, third trimester
CPT/HCPCS: 96360; 96361; 36415; 59025; 59050; 82565; 82570; 83615; 84156; 84450; 84460; 84550; 85027; 99221; J7120; G0378

== ENCOUNTER → 2023-06-08 | Outpatient (CLI) | payer OTHER, SELFPAY ==
[2023-06-08 23:25] LABS: Protein, Urine (Random) 66.8 mg/dL (<11.9); Protein:Creat Ratio 173 mg/g CRE (0-200)
[2023-06-08 23:32] LABS: Group B Strep DNA By PCR Negative (Negative); Internal Control PASS; Probe Check PASS; Specimen Processing Control PASS
== END | disposition home or self-care (01) ==
PROVIDERS: Referring Provider Registered Nurse; Visit Provider Registered Nurse
DX: Z34.90 Encounter for supervision of normal pregnancy, unspecified, unspecified trimester (principal)
CPT/HCPCS: 82570; 84156; 87081; 87653

== ENCOUNTER → 2023-06-17 | Outpatient (CLI) | payer OTHER, SELFPAY ==
[2023-06-17 10:34] LABS: Absolute Lymphocyte Count 2.38 X10^3/uL (0.83-4.51); Absolute Neutrophil Count 4.6 X10^3/uL (2.0-7.7); Basophil# 0.04 X10^3/uL; Basophil% 0.5 % (0-1); Eosinophil# 0.09 X10^3/uL; Eosinophils% 1.2 % (0-5); Hematocrit 29.8 % (37-47); Hemoglobin 8.9 g/dL (12.0-15.0); Lymphocyte # 2.38 X10^3/ul (0.83-4.51); Lymphocyte % 30.5 % (19-41); Mean Corp Hgb Conc 29.9 g/dL (32-36); Mean Corpuscular Hgb 22.1 pg (27.0-32.0); Mean Corpuscular Volume 73.9 fL (81-99); Mean Platelet Vol. 11.4 fl (6.2-12.0); Monocyte# 0.58 X10^3/uL; Monocyte% 7.4 % (0-10); NRBC Flagged by Analyzer 0.5 % (0-5); Neutrophil # 4.58 X10^3/uL (2.7-7.7); Neutrophil % 58.6 % (47-70); Platelet Count 158 K/mm3 (150-450); RBC Distribution Width CV 16.4 % (11.6-14.6); Red Blood Count 4.03 M/mm3 (4.2-5.4); White Blood Count 7.8 K/mm3 (4.4-11.0)
[2023-06-17 10:52] LABS: Vitamin B12 396 pg/mL (211-911)
[2023-06-17 11:34] LABS: Iron 66 ug/dL (50-170); Iron Binding Capacity,Total 524 ug/dL (250-450); PERCENT IRON SATURATION 12.6 % (15.0-55.0)
== END | disposition home or self-care (01) ==
LOC: PAVLAB 10:15
PROVIDERS: Obstetrics & Gynecology; Referring Provider Registered Nurse; Visit Provider Registered Nurse
DX: O99.019 Anemia complicating pregnancy, unspecified trimester (principal); Z3A.36 36 weeks gestation of pregnancy
CPT/HCPCS: 36415; 82607; 82746; 83021; 83540; 83550; 85025; 85660

== ENCOUNTER → 2023-06-22 | Outpatient (CLI) | payer OTHER, SELFPAY ==
--- NOTE | 2023-06-22 15:49 | US_ITS ---
STUDY: SECOND AND THIRD TRIMESTER OBSTETRICAL ULTRASOUND REASON FOR EXAM: Female, 27 years old growth TECHNIQUE: Transabdominal PRIOR ULTRASOUND: None. FINDINGS: There is a single intrauterine fetus. The fetus is in a cephalic presentation. There is demonstrated cardiac activity with a heart rate of 1.5 bpm. There is a normal amniotic fluid volume. The largest amniotic fluid pocket measures 3.3 cm. The amniotic fluid index (WENDI) is 10 cm. The placenta is posterior and not low-lying. There are Grade 2 placental changes. The adnexal regions are not visualized. BPD: 8.5 cm = 34 weeks, 2 day(s) HC: 33.3 cm = 38 weeks, 0 day(s) AC: 33.6 cm = 37 weeks, 4 day(s) FL: 7cm = 36 weeks, 0 day(s) EGA by ultrasound: 36 weeks 5 day(s) JUSTIN by ultrasound: 07/15/2023 Estimated weight: 3003 grams Weight percentile: 27% US/OB Limited With Biometrics IMPRESSION: Living intrauterine with estimated gestational age of 36 weeks and 5 days. Electronically Signed: Thierry Sanderson MD at 18:30 EDT ,
== END | disposition home or self-care (01) ==
LOC: US 15:49
PROVIDERS: Referring Provider Obstetrics & Gynecology; Visit Provider Obstetrics & Gynecology
DX: O43.119 Circumvallate placenta, unspecified trimester (principal); Z3A.00 Weeks of gestation of pregnancy not specified
CPT/HCPCS: 76816

== ENCOUNTER 2023-06-24 07:50 | Outpatient (CLI) | payer OTHER, SELFPAY ==
[2023-06-24 07:59] VITALS: BP 112/94; PULSE 105; RESP 16; TEMP 36.3; O2SAT 99; BMI 33.3
[2023-06-24] MEDS: 0.9% NaCl IVPB Med Flush (250 mL) 15 ML IV (08:14)
[2023-06-24] MEDS: Iron Sucrose Complex 300 MG in 0.9% Normal Saline (250mL Bag) 250 ML 177 MG IV (08:14)
[2023-06-24] MEDS: 0.9% NaCl Peripheral Flush Adult/Peds IV (08:14)
[2023-06-24 10:33] VITALS: BP 98/73; PULSE 86
== END 2023-06-24 07:51 | disposition home or self-care (01) ==
LOC: MEDOUTP 07:51
PROVIDERS: Referring Provider Obstetrics & Gynecology; Visit Provider Obstetrics & Gynecology
DX: D64.9 Anemia, unspecified (principal)
CPT/HCPCS: 96365; 96366; J1756; J7050; A4216

== ENCOUNTER 2023-06-28 09:25 | Inpatient (IN) | payer OTHER, SELFPAY ==
[2023-06-28] VITALS (15 sets, daily range): BP systolic 100–132; BP diastolic 69–93; PULSE 74–103; RESP 16; TEMP 36.1–36.9; O2SAT 95–100; BMI 34.7
[2023-06-28] MEDS: Lactated Ringers 1,000 ML 999 ML IV (10:20)
[2023-06-28] MEDS: Acetaminophen 500 MG Tablet 1000 MG PO ×3 (10:35→22:57)
[2023-06-28 10:37] LABS: Absolute Neutrophil Count 5.3 X10^3/uL (2.0-7.7); Basophil# 0.06 X10^3/uL; Basophil% 0.7 % (0-1); Eosinophil# 0.08 X10^3/uL; Eosinophils% 0.9 % (0-5); Hemoglobin 9.6 g/dL (12.0-15.0); Mean Corpuscular Hgb 22.9 pg (27.0-32.0); Mean Corpuscular Volume 76.2 fL (81-99); Mean Platelet Vol. 11.4 fl (6.2-12.0); Monocyte# 0.62 X10^3/uL; Monocyte% 7.2 % (0-10); NRBC Flagged by Analyzer 0.2 % (0-5); Neutrophil # 5.32 X10^3/uL (2.7-7.7); Neutrophil % 62.3 % (47-70); POSITIVE MORPHOLOGY YES; Platelet Count 154 K/mm3 (150-450); RBC Distribution Width CV 21.3 % (11.6-14.6); RBC Distribution Width SD 49.6 fl (35.1-43.9); White Blood Count 8.6 K/mm3 (4.4-11.0)
[2023-06-28 10:42] LABS: Differential Indicated SCAN CRITERIA MET
[2023-06-28 10:48] LABS: Bedside Glucose 93 mg/dL (74-106)
[2023-06-28 11:00] LABS: Anisocytosis 2+; Differential Comment SCANNED
[2023-06-28 11:10] LABS: Syphilis Antibodies Non-reactive
[2023-06-28] MEDS: Lactated Ringers 1,000 ML 150 ML IV (11:22)
[2023-06-28] MEDS: Sodium Citrate/Citric Acid 30 ML UDC PO (11:42)
[2023-06-28] MEDS: Clindamycin 900 MG/50 ML BAG 75 MG IV (11:50)
[2023-06-28] MEDS: Gentamicin IV 300 MG in Dextrose 5%-Water (50mL Bag) 50 ML 100 MG IVPB (11:55)
[2023-06-28] MEDS: Oxytocin 15 Units/NS 250ml 15 UNITS/250 ML IV.SOLN 83 UNITS IV (13:05)
--- NOTE | 2023-06-28 13:55 | HP.PCM.OB_ITS ---
HPI - General General Date of Admission: 06/28/23 HPI Narrative JOEL ELIAS, is a 27 F who presents for RLTCS. she has had GDM well controlled. Maternal Data Information JUSTIN Calculator Estimated Delivery Date Method Current WG Current Estimate 07/05/23 LMP (Certain) 39w 0d PFSH PFSH Medical History delivery delivered Cholelithiasis Gestational hypertension without significant proteinuria, affecting puerperium Postoperative anemia Home Medications multivitamin no.47-iron fum 27 mg-folate no.1 1 mg-dha 300 mg capsule (PNV-DHA) 2 cap PO DAILY 11/19/22 [History Last Taken Unknown] ondansetron 4 mg disintegrating tablet 4 mg PO Q6H PRN nausea and vomiting #30 tabs 02/21/23 [Rx Last Taken 06/07/23] blood sugar diagnostic (Blood Glucose Test strips) #120 ea 04/11/23 [Rx Last Taken Unknown] blood-glucose meter #1 ea 04/11/23 [Rx Last Taken Unknown] lancets #200 ea 04/11/23 [Rx Last Taken Unknown] Allergy/AdvReac Type Severity Reaction Status Date / Time amoxicillin Allergy Hives Verified 06/28/23 09:44 Penicillins [PCN] Allergy Other Verified 06/28/23 09:44 Family History Aunt Breast cancer, Onset Age: 56 Maternal Uterine cancer Maternal Surgical History Delivery by section No history of previous surgery S/P laparoscopic cholecystectomy Social History adopted: No household members: spouse and children number of children: 1 current occupational status: employed 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 pets and animals: Yes pets and animals: dog(s) history of recent travel: No sexually active: Yes Smoking Status: Never smoker alcohol intake: never substance use type: does not use well-balanced diet: daily or most days caffeine: No eating out: 1-3 times/week during the past year weight has: increased > 10 lbs what type of physical activity do you participate in: walking frequency: 1-2 times per week duration: 15-30 minutes/day shital/gnosticism: Adventism seatbelt use: always do you feel safe at home: Yes additional social history: Main [place] History 2 Elective abortions Hx Para 1 Spontaneous abortions Hx # Term Pregnancies Ectopic pregnancies Hx # Pregnancies Multiple births # of living children 1 Past Pregnancies Del. Date Name GA/Weeks Outcome Route Bth Weight Gen Labor Lgth Anesthesia Del Locatn Provider FOB 09/16/21 [place] 39 live - full term 8#0oz Male 1 9 epidural [facility] Chapito Quach Delivery Date: 09/16/21 Last Updated by: Makenna Holman IOL, large baby- c section decels Visit Details Expected Delivery Route/Plan plan RLTCS considering . Plans Covid status: declined Flu vaccine: declined Tdap vaccine: given Rhogam: na LARC form signed: declined movement and labor precautions reviewed. Problem list reviewed and updated with the most current plan of care details and appropriate orders placed. Relevant counseling for the gestational age provided. Continue routine care and follow up unless otherwise noted in visit notes/problem list details OB Flowsheet Initial Weight: 149 lb Date -?-?-?-?-?-?-?-?-?-?-?-?- EGA Weight BP Urine Prot -?-?-?-?-?-?-?-?-?-?-?-?- Glucose FHR FuHt Pres Dilation -?-?-?-?-?-?-?-?-?-?-?-?- Effaced St Visit Note 11/30/22 -?-?-?-?-?-?-?-?-?-?-?-?- 9w 0d 149 lb (+0 oz) 124/85 -?-?-?-?-?-?-?-?-?-?-?-?- 171 -?-?-?-?-?-?-?-?-?-?-?-?- KW-CRL 27.7mm co ns with LMP 12/23/22 -?-?-?-?-?-?-?-?-?-?-?-?- 12w 2d 149 lb (+0 oz) 142 lb 4 oz (-6 lb 12 oz) 112/80 Trace -?-?-?-?-?-?-?-?-?-?-?-?- Negative 160 -?-?-?-?-?-?-?-?-?-?-?-?- SM- had vb episo de seen in er no obvious cause rh positive labs today 12/31/22 -?-?-?-?-?-?-?-?-?-?-?-?- 13w 3d 146 lb 4 oz (-2 lb 12 oz) 127/87 Negative -?-?-?-?-?-?-?-?-?-?-?-?- Negative 160 -?-?-?-?-?-?-?-?-?-?-?-?- KW-no vb/jimenez iraheta. still having N/V. 01/12/23 -?-?-?-?-?-?-?-?-?-?-?-?- 15w 1d 147 lb 2 oz (-1 lb 14 oz) 112/82 Negative -?-?-?-?-?-?-?-?-?-?-?-?- Negative 149 -?-?-?-?-?-?-?-?-?-?-?-?- MH-No VB. Nausea persists but improved, no longer vomiting. Weight gain noted. Denies other concerns 01/26/23 -?-?-?-?-?-?-?-?-?-?-?-?- 17w 1d 150 lb 6 oz (+1 lb 6 oz) 114/70 Negative -?-?-?-?-?-?-?-?-?-?-?-?- Negative 143 -?-?-?-?-?-?-?-?-?-?-?-?- MH-No VB. Some n oted flutters. Nausea persists. Denies other concerns 02/25/23 -?-?-?-?-?-?-?-?-?-?-?-?- 21w 3d 149 lb 6 oz (+6 oz) 130/92 Negative -?-?-?-?-?-?-?-?-?-?-?-?- Negative 140 -?-?-?-?-?-?-?-?-?-?-?-?- SM- no vb lof g ood fm no regular ctx 03/22/23 -?-?-?-?-?-?-?-?-?-?-?-?- 25w 0d 154 lb (+5 lb) 121/77 Negative -?-?-?-?-?-?-?-?-?-?-?-?- Negative 140 28 -?-?-?-?-?-?-?-?-?-?-?-?- KW-no vb.lof.ctx . good fm. Attempted to do 3 hour GCT (due to failing 1 hour last preg) but vomited after drinking. will attempt to do 1 hour GCT with fresh test. 04/13/23 -?-?-?-?-?-?-?-?-?-?-?-?- 28w 1d 156 lb 4 oz (+7 lb 4 oz) 114/80 Negative -?-?-?-?-?-?-?-?-?-?-?-?- Negative 145 30 -?-?-?-?-?-?-?-?-?-?-?-?- JV- no lof, vagi nal bleeding, or dec fm. no complaints. is newly diagnosed with GDM and trying to get insurance to cover her glucometer. Has appt with nutrition coming up. 04/28/23 -?-?-?-?-?-?-?-?-?-?-?-?- 30w 2d 157 lb (+8 lb) 116/81 Negative -?-?-?-?-?-?-?-?-?-?-?-?- Negative 145 32 -?-?-?-?-?-?-?-?-?-?-?-?- SM- no vb lof go od fm no regular ctx larc signed tdap given SM- no vb lof good fm no reg ular ctx larc signed tdap given BS reviewed 05/11/23 -?-?-?-?-?-?-?-?-?-?-?-?- 32w 1d 161 lb 2 oz (+12 lb 2 oz) 119/83 Negative -?-?-?-?-?-?-?-?-?-?-?-?- Negative 140 34 -?-?-?-?-?-?-?-?-?-?-?-?- JV- glucose log normal (had one fasting that was over 95) no lof, vaginal bleeding, or dec fm. rpt cs is scheduled. JV- c/o tail bone pain. ac dies discussed glucose log normal (had one fasting that was over 95) no lof, vaginal bleeding, or dec fm. rpt cs is scheduled. 05/25/23 -?-?-?-?-?-?-?-?-?-?-?-?- 34w 1d 165 lb (+16 lb) 131/82 Negative -?-?-?-?-?-?-?-?-?-?-?-?- Negative 145 35 -?-?-?-?-?-?-?-?-?-?-?-?- JV- tailbone rob n is worse. recommend chiropractor. may also perform x-ray if becomes more severe. glucose levels normal. having pressure but no lof, vaginal bleeding, or dec fm. 06/08/23 -?-?-?-?-?-?-?-?-?-?-?-?- 36w 1d 160 lb 2 oz (+11 lb 2 oz) 116/83 Positive -?-?-?-?-?-?-?-?-?-?-?-?- Negative 115 36 -?-?-?-?-?-?-?-?-?-?-?-?- LC- no vb/consis tent ctx/lof. good fm. HR baseline low, sick x3 days NSt non reactive- sent to for IV hydration and prolonged monitoring. 06/17/23 -?-?-?-?-?-?-?-?-?-?-?-?- 37w 3d 167 lb 2 oz (+18 lb 2 oz) 131/84 Negative -?-?-?-?-?-?-?-?-?-?-?-?- Negative 145 38 -?-?-?-?-?-?-?-?-?-?-?-?- KW- no vb/crampi ng/lof. good fm. HBG lower today. iron studies pending. 06/23/23 -?-?-?-?-?-?-?-?-?-?-?-?- 38w 2d 164 lb (+15 lb) 143/89 111/84 Trace -?-?-?-?-?-?-?-?-?-?-?-?- Negative 140 -?-?-?-?-?-?-?-?-?-?-?-?- SM- no vb lof go od fm ROS Constitutional Constitutional: Reports systems reviewed and no addt'l complaints, except as documented Eyes Eyes: Denies change in vision ENT HEENT: Reports systems reviewed and no addt'l complaints, except as documented; Denies headache(s) Cardiovascular Cardiovascular: Reports systems reviewed and no addt'l complaints, except as documented; Denies chest pain or dyspnea Respiratory/Chest Respiratory/Chest: Reports systems reviewed and no addt'l complaints, except as documented Gastrointestinal Gastrointestinal: Reports systems reviewed and no addt'l complaints, except as documented; Denies abdominal pain Genitourinary Genitourinary: Reports systems reviewed and no addt'l complaints, except as documented, contractions Details: present (irregular) and movement Details: present; Denies dysuria or genital lesions Musculoskeletal Musculoskeletal: Reports systems reviewed and no addt'l complaints, except as documented Neurologic Neurologic: Reports systems reviewed and no addt'l complaints, except as documented Endocrine Endocrinology: Reports systems reviewed and no addt'l complaints, except as documented Vital Signs Vital Signs Vital Signs: 06/28/23 13:05 06/28/23 13:15 06/28/23 13:30 Temperature Temperature Source Temporal Temporal Temporal Pulse Rate Respiratory Rate Respiratory Pattern Blood Pressure Blood Pressure Mean Blood Pressure Source Blood Pressure Position Blood Pressure Location Baseline BP Pulse Ox Oxygen Delivery Method 06/28/23 13:44 06/28/23 13:05 06/28/23 13:15 Temperature 98.1 F 98.0 F Temperature Source Temporal Temporal Temporal Pulse Rate 96 93 Respiratory Rate 16 16 Respiratory Pattern Normal Blood Pressure 113/87 H 113/78 Blood Pressure Mean 95 89 Blood Pressure Source Monitor Monitor Blood Pressure Position Supine Semi-Fowlers Blood Pressure Location Left Arm Left Arm Baseline BP 132/79 132/79 Pulse Ox 95 98 Oxygen Delivery Method Room Air Room Air 06/28/23 13:30 06/28/23 13:38 06/28/23 13:44 Temperature 97.8 F 98.4 F Temperature Source Temporal Temporal Pulse Rate 85 82 Respiratory Rate 16 16 16 Respiratory Pattern Blood Pressure 118/84 H 132/79 H 118/84 H Blood Pressure Mean 95 96 95 Blood Pressure Source Monitor Monitor Monitor Blood Pressure Position Semi-Fowlers Semi-Fowlers Semi-Fowlers Blood Pressure Location Left Arm Left Arm Left Arm Baseline BP 132/79 132/79 Pulse Ox 97 98 Oxygen Delivery Method Room Air Room Air Room Air Weight Weight: 172 lb Body Mass Index (BMI) 34.7 Physical Exam Const alert, oriented x3, no apparent distress and healthy appearing HEENT normocephalic and moist oral mucous membranes Head and Scalp: atraumatic Neck full ROM, no lymphadenopathy, supple and thyroid normal General: trachea midline Lymph Lymphatic: no lymphadenopathy noted Chest inspection of chest normal Resp normal respiratory effort Cardio regular rate GI normal to inspection, nondistended, normoactive bowel sounds, soft to palpation and non-tender Inspection: gravid external exam normal Manual OB Exam: estimated gestational size appropriate, presentation cephalic, dilated, effaced and station Extremity normal to inspection General Extremity: Negative for edema Skin no rashes or lesions noted Neuro no focal motor deficits and deep tendon reflexes 2+ bilaterally Motor Exam: strength 5/5 throughout and clonus absent Psych mental status grossly normal Labs Labs Labs: Blood Type O POSITIVE Antibody Screen NEGATIVE Hct 32.0 % (37-47) L Hgb 9.6 g/dL (12.0-15.0) L Obstetrics Ultrasound Syphilis Total Ab Non-reactive Rubella IgG Antibody Reactive (Nonreactive) Hep Bs Antigen Non-Reactive (Nonreactive) Hepatitis C Antibody Non-Reactive (Nonreactive) Chlamydia DNA (NEGRITO) Negative (Negative) N.gonorrhoeae DNA (NEGRITO) Negative (Negative) HIV 1&2 Antibody Non-Reactive (Nonreactive) Glucose 1 Hr 50 gm 188 mg/dL (70-140) H Gest Glucose Tolerance MG/DL Group B Strep DNA Negative (Negative) Assessment & Plan (1) Gestational diabetes: COMMENT: test BS fasting & 2 HR PP (2) Anemia affecting : COMMENT: CBC in one month (3) Circumvallate placenta: COMMENT: growth US q 4 weeks 59% at 35 weeks (4) delivery delivered: COMMENT: desires R C/S, RLTCS 06/28/23 @ 12 (5) : QUALIFIERS: Weeks of gestation: 38 weeks Qualified Code(s): Z3A.38 - 38 weeks gestation of COMMENT: GBs neg,NIPT LR, declined ntd & carrier testing. anatomy reviewed (6) Supervision of high-risk : QUALIFIERS: Trimester: second trimester Qualified Code(s): O09.92 - Supervision of high risk , unspecified, second trimester COMMENT: PRR , JUSTIN 07/05/23, girl PC Catarino, Main PLAN: Plan plan RLTCS
--- NOTE | 2023-06-28 13:56 | OP.PCM_ITS ---
Assessment & Plan (1) Gestational diabetes: COMMENT: test BS fasting & 2 HR PP (2) Anemia affecting : COMMENT: CBC in one month (3) Circumvallate placenta: COMMENT: growth US q 4 weeks 59% at 35 weeks (4) delivery delivered: COMMENT: desires R C/S, RLTCS 06/28/23 @ 12 (5) : QUALIFIERS: Weeks of gestation: 38 weeks Qualified Code(s): Z 3A.38 - 38 weeks gestation of COMMENT: GBs neg,NIPT LR, declined ntd & carrier testing. anatomy reviewed (6) Supervision of high-risk : QUALIFIERS: Trimester: second trimester Qualified Code(s): O09.92 - Supervision of high risk , unspecified, second trimester COMMENT: PRR , JUSTIN 07/05/23, girl [facility] [place], [place] (7) delivery delivered: COMMENT: RLTCS 39 [place] girl Maternal Data Information JUSTIN Calculator Estimated Delivery Date Method Current WG Current Estimate 07/05/23 LMP (Certain) 39w 0d Final JUSTIN Source: LMP Details Operative Information Date of Procedure: 06/28/23 Pre-Operative Diagnosis: Previous Post-Operative Diagnosis: same Indications for : Repeat Elective Indications Narrative: Surgeon: sAhley Lynne MD Classification: Scheduled Procedure Type: low transverse central sterile technician #2: Jonathon Bentley Type of Anesthesia: Spinal Special Medications: none Antibiotic Given: Ancef 2 grams IV x1 Drain: Suazo to straight drain Estimated Blood Loss: 800 Fluids Replaced: crystalloid Procedure Start Time: 12:15 Procedure Stop Time: 12:48 Findings Description of Procedure: Spinal anesthesia was placed without difficulty. Suazo catheter was placed. The patient was placed in the dorsal supine position with leftward tilt. Patient was prepped and draped in the normal sterile fashion. Pfannenstiel skin incision was made with the scalpel and carried through to the underlying layer of fascia with the scalpel. Fascia was nicked in the midline and the incision extended laterally. The rectus bellies were dissected off superiorly and inferiorly with out complication both sharply and bluntly. The peritoneum was entered digitally. The incision was stretched and a low transverse uterine incision was made with the scalpel. The 's head was delivered atraumatically followed by the anterior and posterior shoulders without complication the rest of the delivered. The cord was clamped and cut and the infant was handed off to awaiting nurse. The placenta was delivered spontaneously immediately following and was noted to be intact and have a three- vessel cord. The uterus was exteriorized cleared of all clots and debris, and the incision was closed in a single layer closure using #1 Monocryl. The ovaries and fallopian tubes were noted to be within normal limits. The uterus was returned to the maternal abdomen and gutters were cleared of all clots and debris. The peritoneum was closed with 3-0 Monocryl in a running fashion. hemoblast placed over the muscle where areas appeared raw. Fascia was closed with 0 PDS in a running fashion. Subcutaneous tissue was copiously irrigated and the skin was closed with 3-0 Monocryl in a subcuticular fashion. Mepilex dressing was applied without complication. Patient was taken to recovery in stable condition. Amniotic Membrane Rupture Type: Artificial Amniotic Fluid Description: Clear Placenta Disposition: [facility] Cord Vessel Description: 3 Vessels Delayed Cord Clamping: Yes Complications Risks of Surgery Discussed w/Patient: Bleeding, Infection, Need for Future C- Sections and Injury to surrounding structure(s) including bowel and bladder Vaginal Delivery Complication Complications: None Admit VTE Documentation VTE Present on Admission: No VTE Mechan Device Prophylaxis: SCD's Procedures Urinary/Genital [id number]: [id number] Delivery [facility]
[2023-06-28 14:05] LABS: Bedside Glucose 85 mg/dL (74-106)
[2023-06-28] MEDS: Ketorolac 30 MG/ML Syringe IV ×2 (14:55→20:56)
[2023-06-28] MEDS: Lactated Ringers 1,000 ML 100 ML IV (16:09)
--- NOTE | 2023-06-28 17:42 | DCINST_ITS ---
Discharge Instructions Diet Discharge Diet: No restrictions Activity Discharge Activity: May Not Drive (for 2 weeks or while taking narcotic pain medications.), May Shower and May Take a Tub Bath (in 7 days) May shower in (days): 0 May resume sexual activity in: 4-6 weeks Weight Bearing Status: Full weight bearing Lifting Restrictions: 20 pounds Dressing / Incision Call your doctor if your incision/area has: Continuous Slow Oozing, Sudden Increased Bleeding, Increased Pain/ Swelling, Increased Redness and Foul Smelling Discharge Call your doctor if you observe: Fever of 101 or Higher and Using more than 1 pad per hour (for 2 hours) Suture Line Care: Avoid Pulling/Pushing and Avoid Pinching/Bending Cleanse incision/area with: Soap & Water and Keep Dressing Clean & Dry Follow Up Care Please Follow Up With: Ashley Lynne MD When: Call [phone] to make an appointment for an incision check in 1-2 weeks. Test Results: Test results from this visit will be discussed in further detail at your follow- up appointment, if applicable. Discharge Plan Admission Admit Date/Time: 06/28/23 09:25 Attending Provider: Ashley Lynne Primary Care Provider: Care Physician,No Primary Discharge Orders/Prescriptions Prescriptions: New oxycodone-acetaminophen [Percocet] 5-325 mg tablet 1 tab PO Q6H PRN (Reason: pain) 7 Days Qty: 20 0RF naproxen [naproxen] 500 mg tablet 500 mg PO BID PRN PRN (Reason: Pain) Qty: 30 1RF No Action PNV-DHA 27 mg iron-1 mg -300 mg capsule 2 cap PO DAILY ondansetron 4 mg tablet,disintegrating 4 mg PO Q6H PRN (Reason: nausea and vomiting) Qty: 30 3RF (DME) Blood Glucose Test Strip See Rx Instructions .ROUTE .MEDSUPPLY Qty: 120 5RF Rx Instructions: As directed-fasting & 2 hr post meals (DME) blood-glucose meter Misc See Rx Instructions .MEDSUPPLY Qty: 1 0RF Rx Instructions: As directed- Test fasting and 2 hours after meals (DME) lancets Misc See Rx Instructions .MEDSUPPLY Qty: 200 5RF Rx Instructions: As directed-fasting & 2 hr post meals Referrals / Follow Up: Care Physician,No Primary [Primary Care Provider] - Disposition Disposition (needs filled in before D/C Order can be placed): Home, Self Care
[2023-06-28] MEDS: 0.9% Saline Lock 10 ML Syringe IV (20:57)
[2023-06-29] MEDS: Enoxaparin 40 MG/0.4 ML Syringe SC (02:21)
[2023-06-29] MEDS: Ketorolac 30 MG/ML Syringe IV ×2 (03:12→09:31)
[2023-06-29] MEDS: 0.9% Saline Lock 10 ML Syringe IV ×2 (03:12→05:19)
[2023-06-29 03:28] VITALS: BP 105/68; PULSE 84; RESP 16; TEMP 36.2; O2SAT 98
[2023-06-29] MEDS: Acetaminophen 500 MG Tablet 1000 MG PO ×2 (05:19→11:13)
[2023-06-29 05:31] LABS: Hematocrit 25.3 % (37-47); Hemoglobin 7.6 g/dL (12.0-15.0); Mean Corpuscular Volume 76.7 fL (81-99); Mean Platelet Vol. 10.6 fl (6.2-12.0); POSITIVE MORPHOLOGY YES; Platelet Count 114 K/mm3 (150-450); RBC Distribution Width CV 21.4 % (11.6-14.6); RBC Distribution Width SD 49.1 fl (35.1-43.9); White Blood Count 8.8 K/mm3 (4.4-11.0)
[2023-06-29 05:43] LABS: Bedside Glucose 87 mg/dL (74-106)
[2023-06-29 06:59] LABS: Scan Indicated on CBC? Y/N YES- FLAGS NOTED
[2023-06-29 07:00] LABS: Differential Comment SCANNED
--- NOTE | 2023-06-29 07:55 | PCM.PN.OB ---
Subjective Subjective Patient doing well without complaints. Tolerating PO. Ambulating and voiding without difficulty. Feeding well. Denies chest pain, shortness of breath, calf pain/swelling, fevers, chills, lightheadedness. She is asymptomatic from anemia. She had IV venofer 5 days ago. Objective Data Objective Data Vital Signs: Vital Signs Temp Pulse Resp BP Pulse Ox O2 Del Method 97.1 F L 84 16 105/68 98 Room Air 06/29/23 03:28 06/29/23 03:28 06/29/23 03:28 06/29/23 03:28 06/29/23 03:28 06/29/23 03:28 Oxygen Delivery Method Room Air Weight: 172 lb Body Mass Index (BMI) 34.7 Intake & Output: Intake and Output for Last 24 Hours 06/27/23 06/28/23 06/29/23 23:59 23:59 23:59 Intake Total 1674.5 / 1674.5 0 / 0 Output Total 1450 / 1450 400 / 400 Balance 224.5 / 224.5 -400 / -400 Lab / Micro Data 06/29/23 05:29 Labs: Laboratory Results - last 24 hr 06/28/23 10:09: POC Glucose 93 06/28/23 10:28: WBC 8.6, RBC 4.20, Hgb 9.6 L, Hct 32.0 L, MCV 76.2 L, MCH 22.9 L, MCHC 30.0 L, RDW Std Deviation 49.6 H, RDW Coeff of Leila 21.3 H, Plt Count 154, MPV 11.4, Immature Gran % (Auto) 0.900, Neut % (Auto) 62.3, Lymph % (Auto) 28.0, Park % (Auto) 7.2, Eos % (Auto) 0.9, Baso % (Auto) 0.7, Absolute Neuts (auto) 5.3, Absolute Lymphs (auto) 2.40, Nucleated RBC % 0.2, Differential Comment SCANNED, Anisocytosis 2+, Syphilis Total Ab Non-reactive, Blood Type O POSITIVE, Antibody Screen NEGATIVE 06/28/23 13:09: POC Glucose 85 06/29/23 05:21: POC Glucose 87 06/29/23 05:29: WBC 8.8, RBC 3.30 L, Hgb 7.6 L, Hct 25.3 L, MCV 76.7 L, MCH 23.0 L, MCHC 30.0 L, RDW Std Deviation 49.1 H, RDW Coeff of Leila 21.4 H, Plt Count 114 L, MPV 10.6, Differential Comment SCANNED Physical Exam Const alert and oriented x3 HEENT normocephalic Eyes PERRL Neck full ROM Resp normal respiratory effort GI soft to palpation GI Narrative: FF below U; Dressing dry and intact over incision. Assessment & Plan (1) delivery delivered: COMMENT: RLTCS 39 [place] girl (2) Gestational diabetes: QUALIFIERS: Gestational diabetes mellitus control: diet-controlled Trimester: unspecified trimester Qualified Code(s): O24.410 - Gestational diabetes mellitus in , diet controlled (3) Anemia: QUALIFIERS: Anemia type: iron deficiency Iron deficiency anemia type: unspecified iron deficiency Qualified Code(s): D50.9 - Iron deficiency anemia, unspecified PLAN: Plan s/p LTCS PPD # 1 1. routine post care 2. breast feeding- support given 3. rh positive 4. rubella immune 5. glucose stable 6. asymptomatic for anemia. States still feels better than she did prior to venofer. Reviewed sx to report. 7. home today
[2023-06-29 08:05] VITALS: BP 104/74; PULSE 98; RESP 16; TEMP 36.6; O2SAT 98
[2023-06-29] MEDS: Senna/Docusate Sodium 1 Tablet PO (09:31)
[2023-06-29 14:11] VITALS: BP 114/70; PULSE 98; RESP 16; TEMP 36.1; O2SAT 98
== END 2023-06-29 14:45 | disposition home or self-care (01) | DRG 788 ==
PROVIDERS: Admitting Provider Obstetrics & Gynecology; Visit Provider Obstetrics & Gynecology
PROC: 10D00Z1 Extraction of Products of Conception, Low, Open Approach (ICD-10-PCS; CPT 59514; principal; 2023-06-28 11:45)
DX: O24.420 Gestational diabetes mellitus in childbirth, diet controlled (principal); D50.9 Iron deficiency anemia, unspecified; O43.113 Circumvallate placenta, third trimester; O99.02 Anemia complicating childbirth; Z37.0 Single live birth; O34.211 Maternal care for low transverse scar from previous cesarean delivery; Z90.49 Acquired absence of other specified parts of digestive tract; Z3A.38 38 weeks gestation of pregnancy
CPT/HCPCS: 59025; 59050; 82962; 85025; 85027; 86780; 86850; 86900; 86901; 99221; J7120; A4216; G0378; J2405

== ENCOUNTER → 2023-08-08 | Outpatient (CLI) | payer OTHER, SELFPAY ==
[2023-08-12 20:26] LABS: HPV Reflexed? NOT INDICATED
== END | disposition home or self-care (01) ==
LOC: LABSPEC 16:05
PROVIDERS: Referring Provider Obstetrics & Gynecology; Visit Provider Obstetrics & Gynecology
DX: Z12.4 Encounter for screening for malignant neoplasm of cervix (principal)
CPT/HCPCS: 88175; G0145